=== PATIENT | female | born 1945 | race Caucasian/White ===

== ENCOUNTER 2018-09-05 08:59 | Observation (INO) | payer MEDICARE, MEDICAID ==
[2018-09-05 09:49] LABS: #Basophils 0.1 thou/uL (0.0-0.2); #Eosinphils 0.9 thou/uL (0.0-0.7); #Lymphocytes 2.8 thou/uL (1.20-3.40); #Neutrophils 9.1 thou/uL (1.40-6.50); %Basophils 0.7 % (0.0-1.0); %Eosinophils 6.7 % (0.0-10.0); %Lymphocytes 19.9 % (21.0-51.0); %Monocytes 7.3 % (0.0-10.0); %Neutrophils 65.3 % (42.0-75.0); Hemoglobin 10.9 g/dL (12.0-16.0); Mean Corpuscular HGB CONC 29.4 g/dL (32.0-36.0); Mean Corpuscular Hemoglobin 26.2 pg (27.0-31.0); Mean Corpuscular Volume 89.1 fL (78.0-98.0); Mean Platelet Volume 8.8 fL (7.4-10.4); Platelet Count 309 thou/uL (130-400); RBC Distribution Width 14.4 % (11.5-14.5); Red Blood Cell (RBC) Count 4.15 mill/uL (4.20-5.40); White Blood Cell (WBC) Count 13.9 thou/uL (4.8-10.8)
[2018-09-05 10:05] LABS: CKMB 4.5 ng/mL (0-6.6)
[2018-09-05 10:11] LABS: ALT (SGPT) 41 U/L (8-55); AST (SGOT) 39 U/L (5-34); Albumin 3.6 g/dL (3.4-4.8); Alkaline Phosphatase 109 U/L (40-150); Anion Gap 17 mmol/L (10-20); BUN (Urea Nitrogen) 28 mg/dL (9.8-20.1); Bilirubin, Total Less than 0.2 mg/dL (0.2-1.2); Calc. Creatinine Clearance 0 mL/min (70-130); Carbon Dioxide 18 mmol/L (23-31); Chloride 107 mmol/L (98-107); Estimated GFR-MDRD 88; Globulin 3.2 g/dL (2.4-3.5); Glucose 157 mg/dL (83-110); Protein, Total 6.8 g/dL (6.0-8.3); Sodium 137 mmol/L (136-145); Troponin I 0.012 ng/mL (< 0.028)
[2018-09-05 10:19] LABS: MDiff Complete? YES; Polychromasia SLIGHT = 2-3 cells (100X) (0-2/hpf)
[2018-09-05] MEDS ORDERED: methylPREDNISolone Sod Succ/PF 125 MG/2 ML VIAL ONE (10:48)
--- NOTE | 2018-09-05 11:03 | RAD ---
CHEST ONE VIEW PORTABLE: HISTORY: A 72-year-old female with a history of chest pain and dyspnea with chest tightness and shortness of b reath. COMPARISON: 10/05/2017 FINDINGS: There is rotation to the right. Monitor leads overly the chest. There are some mild increased linea r and interstitial markings in the left chest and some blunting of the left costophrenic angle. Thes e interstitial markings do appear to be somewhat more prominent than on the prior study of 07/05/2016 . Some of this apparent increased density may be related to the rotation. There is bone demineraliz ation. Heart size is within normal limits. IMPRESSION: 1. Markedly rotated chest to the right. 2. Stable pleural opacity changes in the left base with some increased markings in the left chest, w hich may just be related to the rotation. 3. No confluent pneumonia. 4. Atherosclerosis of the aorta with ectasia. 5. Heterogeneous bony demineralization. POS: [facility]
[2018-09-05] MEDS ORDERED: Acetaminophen 500 MG TAB ONE (12:56)
[2018-09-05 14:23] LABS: Troponin I 0.014 ng/mL (< 0.028)
[2018-09-05 16:27] LABS: Bilirubin Negative (Negative); Blood, Urine Trace (Negative); Clarity CLOUDY (Clear); Glucose, Urine (Dipstick) Negative (Negative); Leukocyte Large (Negative); Nitrite Positive (Negative); Protein, Urine (Dipstick) Negative (Neg-Trace); Specific Gravity, Urine 1.017 (1.002-1.036); Urobilinogen 0.2 mg/dL (0.2-1.0)
[2018-09-05 16:29] LABS: Bacteria/HPF 2+ HPF (None Seen); Hyaline Casts/LPF 7-10 HYALINE CAST LPF (0-3 Hyaline); Pathc Cast-AUWi Flag 0.72 (0-2.49); RBC/HPF 0-3 HPF (0-3); Squamous Epithelial None Seen HPF (0-3); Yeast-AUWi Flag 24.2 (0-25.0)
[2018-09-05 17:41] LABS: Troponin I Less than 0.010 ng/mL (< 0.028)
[2018-09-05] MEDS ORDERED: Ondansetron ODT 4 MG TAB SL PRN (17:47)
[2018-09-05] MEDS ORDERED: Acetaminophen 325 MG TAB PO PRN (17:47)
[2018-09-05] MEDS ORDERED: Ondansetron PF 4 MG/2 ML Vial IVP PRN ×2 (17:47→18:20)
[2018-09-05] MEDS ORDERED: Ibuprofen 200 MG TAB PO PRN (18:20)
[2018-09-05] MEDS ORDERED: Dextrose 50% Abboject 50 ML SYRINGE SLOW IVP PRN (18:20)
[2018-09-05] MEDS ORDERED: hydrALAZINE 20 MG/ML VIAL SLOW IVP PRN (18:20)
[2018-09-05] MEDS ORDERED: Acetaminophen 500 MG TAB PO PRN (18:20)
[2018-09-05] MEDS ORDERED: Ondansetron ODT 4 MG TAB PO PRN (18:20)
[2018-09-05] MEDS ORDERED: Dextrose 5% in Water 1,000 ML IV PRN (18:20)
[2018-09-05] MEDS ORDERED: HumaLOG 300 UNITS/3 ML VIAL SC PRN ×2 (18:20)
[2018-09-05] MEDS ORDERED: cefTRIAXone\\ROCEPHIN 2 GM in Sodium Chloride 0.9% 100 ML IVPB SCH (18:30)
[2018-09-05] MEDS ORDERED: Famotidine 20 MG TAB PO SCH (21:00)
--- NOTE | 2018-09-05 21:25 | HP ---
DATE OF ADMISSION: 09/05/2018 PRIMARY CARE PROVIDER: Dr. Reshma Valles. CHIEF COMPLAINT: Chest and abdominal pain. HISTORY OF PRESENT ILLNESS: This is a 72-year-old female who presents to [facility] Emergency Department in transfer from [facility] in [place], [place] where patient is a [facility] resident. The patient states she noticed upper abdomen and lower chest discomfort including press ure and some pain that began spontaneously. The patient states she waited for the pain to resolve; h owever, it continued notifying the nursing personnel at [facility]. The patient denied any ass ociated nausea, vomiting, diaphoresis, left arm or jaw discomfort. The patient denies any specific b ack discomfort, fever, chills, increased cough, congestion, or change to her bowel habits. Patient d enies any specific dysuria; however, states she has a chronic indwelling bladder catheter. The [facility] nt states she is nonambulatory at baseline status post bilateral lower extremity amputations secondar y to Staph infections. The patient has been a resident at [facility] in [place] for approxima tely a year and a half. The patient does admit to a remote history of coronary artery disease, takin g chronic aspirin and nitrate therapy. The patient states she has been compliant with her chronic me dication regimen; however, states she takes 18-19 pills a day and is not clear of her entire regimen. In the emergency room, patient did receive aspirin as well as sublingual nitroglycerin spray with s ome improvement in symptoms. The patient denies any recent trauma, injury or fall. The patient also received IV Solu-Medrol, bronchodilator therapy including DuoNebs, and Tylenol. PAST MEDICAL HISTORY: 1. Nonambulatory status, status post bilateral lower extremity amputation. 2. Parkinson's disease. 3. Coronary artery disease, medically managed. 4. Diabetes mellitus type 2. 5. Hypertension. 6. Multiple sclerosis. 7. History of asthma. 8. Hypothyroidism. PAST SURGICAL HISTORY: 1. Status post cholecystectomy. 2. Status post appendectomy. 3. Status post bilateral above the knee amputations after Staphylococcal infection. 4. Status post left hand surgery. 5. Status post right ear surgery. CURRENT MEDICATIONS: 1. Ambien 5 mg p.o. at bedtime. 2. Amlodipine 5 mg one tablet p.o. daily. 3. Aspirin 81 mg 1 tab p.o. daily. 4. Lipitor 40 mg p.o. at bedtime. 5. Baclofen 10 mg p.o. b.i.d. 6. Colace 100 mg p.o. daily. 7. Copaxone 20 mg subcutaneously daily. 8. Flovent HFA 1 inhalation daily. 9. Isosorbide mononitrate 60 mg p.o. daily. 10. Lisinopril 40 mg p.o. daily. 11. Metformin 500 mg p.o. b.i.d. 12. Metoprolol tartrate 100 mg p.o. daily. 13. Naproxen 250 mg p.o. b.i.d. 14. Patanol 0.1% ophthalmic drops. 15. Primidone 50 mg p.o. b.i.d. 16. Trimethoprim 100 mg p.o. daily. 17. Requip 2 mg p.o. t.i.d. 18. Nexium 40 mg p.o. daily. 19. Clonidine 0.1 mg p.o. b.i.d. 20. Elemental iron 65 mg p.o. daily. 21. Lasix 20 mg 1 tab p.o. daily. 22. Melatonin 3 mg p.o. at bedtime. ALLERGIES: FLAGYL, MORPHINE SULFATE, SULFA. FAMILY HISTORY: Positive for diabetes mellitus. Positive for coronary artery disease. SOCIAL HISTORY: Patient resides at [facility] over the last year and a half. Origina marge from [place]. Remote history of tobacco use, quitting approximately 40 years prior to this evaluation. No alcohol or illicit drug use. Nonambulatory status. REVIEW OF SYSTEMS: The following complete review of systems was negative, unless otherwise mentioned in the HPI or below: Constitutional: Weight loss or gain, ability to conduct usual activities. Skin: Rash, itching. Eyes: Double vision, pain. ENT/Mouth: Nose bleeding, neck stiffness, pain, tenderness. Cardiovascular: Palpitations, dyspnea on exertion, orthopnea. Respiratory: Shortness of breath, wheezing, cough, hemoptysis, fever or night sweats. Gastrointestinal: Poor appetite, abdominal pain, heartburn, nausea, vomiting, constipation, or diarr hea. Genitourinary: Urgency, frequency, dysuria, nocturia. Musculoskeletal: Pain, swelling. Neurologic/Psychiatric: Anxiety, depression. Allergy/Immunologic: Skin rash, bleeding tendency. Otherwise negative except as stated per HPI. PHYSICAL EXAMINATION: VITAL SIGNS: On admission, blood pressure 123/58, pulse 85, respiratory rate 20, temperature 97.8 de grees Fahrenheit, O2 saturation 94% on room air. GENERAL APPEARANCE: This is a 72-year-old female, alert, responsive, in no acute distress. HEENT: Pupils are equal, round, and reactive to light and accommodation. Extraocular muscles are in tact. No scleral icterus, no conjunctival injection. Nares patent. OP is clear. Teeth in fair rep air. NECK: Supple, no cervical adenopathy, no thyromegaly, no carotid bruits, no JVD noted. CHEST: Lungs are clear to auscultation bilaterally. CARDIOVASCULAR: S1 and S2, without noted murmur, rub or gallop. Mild tenderness to palpation in the lower sternum and midepigastric region. ABDOMEN: Rounded, soft with mild tenderness to palpation in the midepigastric region. No palpable m ass noted. Bowel sounds in all 4 quadrants. EXTREMITIES: Warm and dry with fair turgor. Bilateral lower extremity above the knee amputations no teo with stump intact. GENITOURINARY: Indwelling bladder catheter with leg bag in place. NEUROLOGIC: Cranial nerves II-XII are grossly intact. No focal or lateralizing signs appreciated. PERTINENT LABORATORY DATA AND X-RAY FINDINGS: Sodium 137, potassium 5.0, chloride 107, CO2 of 18, BU N 28, creatinine 0.66. Estimated GFR of 88, glucose 157, calcium 9.0, total bilirubin 0.2, AST 39, A LT 41, alkaline phosphatase 109. Troponin I negative x3. BNP 36. Albumin 3.6. CBC showed a white blood cell count 13.9, hemoglobin 11, hematocrit 37, platelet count 309 with normal differential. Ur inalysis positive for nitrites and leukocyte esterase with greater than 50 to too numerous to count W BCs per high powered field. Portable chest x-ray dated 09/05/2018 showed no acute cardiopulmonary pr ocess. Marked rotation of the chest to the right. EKG dated 09/05/2018 by my interpretation shows s inus mechanism with heart rates in the 90s. Attenuated R waves noted in the precordial leads. Kim l axis. No acute ST-T wave changes appreciated. ASSESSMENT AND PLAN: 1. Chest pain. The patient will be observed on the telemetry unit. Appears noncardiac in nature gi jason physical findings on exam. Serial troponin I x3 negative. We will continue to monitor clinicall y. Suspect abdominal source. 2. Epigastric abdominal pain, etiology unclear. We will check lipase level. Serial abdominal exams . Supportive management. 3. Hypertension. Resume home antihypertensive regimen and monitor clinical response. 4. Chronic normocytic anemia, stable. Review of electronic medical record shows stable hemoglobin v alues dating back to 2015. 5. Diabetes mellitus type 2. Resume home diabetic regimen. Insulin sliding scale for reflexive cov erage. ADA diet. Serial Accu-Cheks before meals and at bedtime. 6. Urinary tract infection. Suspect given chronic indwelling bladder catheterization. Urine cultur e pending. Continue Rocephin 2 g IV q.24 hours. 7. Prophylaxis. Pepcid 20 mg p.o. b.i.d. 8. Wound Care consult. 9. Code status is DO NOT RESUSCITATE confirmed with the patient. Surrogate medical decision maker i s the patient's daughter.
[2018-09-06 04:18] LABS: ALT (SGPT) 47 U/L (8-55); AST (SGOT) 40 U/L (5-34); Albumin 3.3 g/dL (3.4-4.8); Alkaline Phosphatase 100 U/L (40-150); Anion Gap 13 mmol/L (10-20); BUN (Urea Nitrogen) 28 mg/dL (9.8-20.1); Bilirubin, Total Less than 0.2 mg/dL (0.2-1.2); Calc. Creatinine Clearance 75 mL/min (70-130); Calcium 8.6 mg/dL (7.8-10.44); Carbon Dioxide 22 mmol/L (23-31); Cardiac Risk 3.4 (Less than 4.5); Chloride 107 mmol/L (98-107); Cholesterol 142 mg/dl (< 200 Desired); Estimated GFR-MDRD 85; Globulin 3.1 g/dL (2.4-3.5); Glucose 226 mg/dL (83-110); HDL Cholesterol 42 mg/dL (>60 Neg Risk); LDL Cholesterol, Calculated 79 mg/dL; Lipase 20 U/L (8-78); Potassium 4.1 mmol/L (3.5-5.1); Protein, Total 6.4 g/dL (6.0-8.3); Sodium 138 mmol/L (136-145); Triglycerides 105 mg/dL (Less than 150)
[2018-09-06 05:07] LABS: Band 6 % (5-11); Eosinophils 6 % (0-10); Hemoglobin 9.8 g/dL (12.0-16.0); Lymphocytes 15 % (21-51); MDiff Complete? YES; Mean Corpuscular HGB CONC 30.6 g/dL (32.0-36.0); Mean Corpuscular Hemoglobin 26.7 pg (27.0-31.0); Mean Corpuscular Volume 87.2 fL (78.0-98.0); Mean Platelet Volume 9.1 fL (7.4-10.4); Monocytes 8 % (0-10); Neutrophil 65 % (42-75); Platelet Count 287 thou/uL (130-400); RBC Distribution Width 14.3 % (11.5-14.5); Red Blood Cell (RBC) Count 3.68 mill/uL (4.20-5.40); White Blood Cell (WBC) Count 12.1 thou/uL (4.8-10.8)
[2018-09-06] MEDS ORDERED: Aspirin 81 mg Enteric Coated Tablet PO SCH (09:00)
[2018-09-06] MEDS ORDERED: Amlodipine 10 MG TAB PO SCH (11:00)
[2018-09-06] MEDS ORDERED: cloNIDine 0.1 MG TAB PO SCH ×2 (11:15→21:00)
[2018-09-06] MEDS ORDERED: Furosemide 20 MG TAB PO SCH (11:15)
[2018-09-06] MEDS ORDERED: Lisinopril 20 MG TAB PO SCH (11:15)
[2018-09-06 12:29] VITALS: BMI 44.0
--- NOTE | 2018-09-06 15:04 | DIS ---
DATE OF ADMISSION: 09/05/2018 DATE OF DISCHARGE: 09/06/2018 DISCHARGE DIAGNOSES: 1. Urinary tract infection with Escherichia coli. 2. Abdominal pain likely secondary to #1, resolving. 3. Hypertension, stable. 4. Chronic normocytic anemia, stable. 5. Diabetes mellitus type 2, stable. 6. Chronic nonambulatory status. 7. Polypharmacy. CONSULTATIONS: None. PERTINENT LABORATORY DATA AND X-RAY FINDINGS: Basic metabolic profile within normal limits. Troponi n I negative x4. Total cholesterol 142, triglycerides 105, HDL 42, LDL 79. Lipase 20. CBC showed a white blood cell count ranged between 12.1-13.9, hemoglobin ranged between 9.8-10.9. Urine culture dated 09/05/2018 showed 50,000-75,000 colonies of E. coli species. Portable chest x-ray dated 2017 showed technically limited portable chest x-ray. Chronic atelectasis noted. No acute infiltrat e identified. HOSPITAL COURSE: The patient was initially placed in observation status after presenting with chest/ abdominal pain. The patient initially underwent serial cardiac enzymes, which were negative x4. Tel emetry monitoring showed no evidence of acute arrhythmia or dysrhythmia, and patient remained clinica lly stable. Screening metabolic survey was essentially unremarkable except for evidence of urinary t ract infection with urine culture showing presumptive E. coli species in the context of chronic indwe lling Gonsalez catheter. The patient received IV Rocephin 2 grams x1 dose with plans to transition to L evaquin 500 mg daily for 7 days after discharge. The patient did tolerate regular oral intake, voide d appropriately and remained clinically stable throughout the hospital course. I have examined the p atient at the time of discharge and discussed followup instructions. The patient overall clinically stable and ready for discharge on 09/06/2018. DISCHARGE MEDICATIONS: 1. Albuterol sulfate 1 inhalation q.4 hours p.r.n. 2. Norvasc 10 mg p.o. daily. 3. Lipitor 40 mg p.o. daily. 4. Baclofen 10 mg p.o. t.i.d. 5. Citalopram 20 mg p.o. daily. 6. Catapres 0.1 mg p.o. b.i.d. 7. Colace 100 mg p.o. b.i.d. 8. Flovent HFA 1 puff inhaled daily. 9. Lasix 20 mg p.o. daily. 10. Copaxone 20 mg subcutaneously daily. 11. Ipratropium HFA 1 puff inhaled b.i.d. 12. Isosorbide mononitrate 60 mg p.o. daily. 13. Levothyroxine 50 mcg p.o. daily. 14. Lisinopril 40 mg p.o. daily. 15. Metformin 500 mg p.o. b.i.d. 16. Metoprolol tartrate 100 mg p.o. b.i.d. 17. Naproxen 250 mg p.o. b.i.d. 18. Primidone 50 mg 2 tabs p.o. daily. 19. Ropinirole 1 tablet p.o. t.i.d. 20. Trimethoprim 100 mg p.o. daily. 21. Levaquin 500 mg p.o. daily x7 days. FOLLOWUP: The patient will follow up with Dr. Valles and Faye Larsen, nurse practitioner at [facility]. CONDITION ON DISCHARGE: Fair. ACTIVITY: ad lev. DIET: ADA and heart healthy. CODE STATUS: Do not resuscitate. DISPOSITION: Discharge home to [facility], 09/06/2018.
[2018-09-06 15:52] VITALS: BP 149/71; TEMP 98.6
[2018-09-07] MEDS ORDERED: Lisinopril 20 MG TAB PO SCH (09:00)
[2018-09-07] MEDS ORDERED: Furosemide 20 MG TAB PO SCH (09:00)
[2018-09-07] MEDS ORDERED: Amlodipine 10 MG TAB PO SCH (09:00)
--- NOTE | 2018-09-08 12:17 | EKG ---
Test Reason : Blood Pressure : / mmHG Vent. Rate : 090 BPM Atrial Rate : 090 BPM P-R Int : 206 ms QRS Dur : 086 ms QT Int : 376 ms P-R-T Axes : 068 069 101 degrees QTc Int : 459 ms Normal sinus rhythm Low voltage QRS Abnormal ECG Confirmed by MAIA CRAWFORD ([id number]), scientific publications editor KRISHNA VICTORIA ([id number]) on 09/08/2018 12:17:26 PM Referred By: Confirmed By:MAIA CRAWFORD
== END 2018-09-06 19:01 | disposition home or self-care (01) ==
LOC: ERS 08:59 → ERHOLD 13:38 → 2SE 17:45
PROVIDERS: ADMIT Family Medicine; ATTEND Family Medicine
DX: R07.89 Other chest pain (principal); R10.10 Upper abdominal pain, unspecified; N39.0 Urinary tract infection, site not specified; B96.20 Unspecified Escherichia coli [E. coli] as the cause of diseases classified elsewhere; D64.9 Anemia, unspecified; I10 Essential (primary) hypertension; E03.9 Hypothyroidism, unspecified; I25.10 Atherosclerotic heart disease of native coronary artery without angina pectoris; G20 Parkinson's disease; Z79.82 Long term (current) use of aspirin; Z79.899 Other long term (current) drug therapy; Z88.5 Allergy status to narcotic agent; Z88.2 Allergy status to sulfonamides; Z87.891 Personal history of nicotine dependence
CPT/HCPCS: 71045; 80053 ×2; 80061; 82553; 82962 ×2; 83690; 83880; 84484 ×2; 85007; 85025; 85027; 87077; 87086; 87186; 93005 ×2; 94640; 94760; 96365; 96375; 97139; 99285; G0378; 36415; 36416; 81003; 81015; 93010; 96374; J0360; J0696; J2930; J7050; J7620

== ENCOUNTER 2019-02-25 04:40 | Inpatient (IN) | payer MEDICARE, MEDICAID ==
[2019-02-25 05:11] LABS: #Basophils 0.2 thou/uL (0.0-0.2); #Eosinphils 1.9 thou/uL (0.0-0.7); #Lymphocytes 5.6 thou/uL (1.20-3.40); #Monocytes 1.2 thou/uL (0.11-0.59); #Neutrophils 9.3 thou/uL (1.40-6.50); %Basophils 0.9 % (0.0-1.0); %Eosinophils 10.4 % (0.0-10.0); %Lymphocytes 30.9 % (21.0-51.0); %Monocytes 6.4 % (0.0-10.0); %Neutrophils 51.3 % (42.0-75.0); Hemoglobin 12.2 g/dL (12.0-16.0); Mean Corpuscular HGB CONC 31.2 g/dL (32.0-36.0); Mean Corpuscular Hemoglobin 27.4 pg (27.0-31.0); Mean Corpuscular Volume 87.8 fL (78.0-98.0); Mean Platelet Volume 9.2 fL (7.4-10.4); Platelet Count 354 thou/uL (130-400); RBC Distribution Width 12.6 % (11.5-14.5); Red Blood Cell (RBC) Count 4.45 mill/uL (4.20-5.40)
[2019-02-25] MEDS ORDERED: Magnesium 2 GM/50 ML BAG (IN WATER) ONE (05:16)
[2019-02-25] MEDS ORDERED: methylPREDNISolone Sod Succ/PF 125 MG/2 ML VIAL ONE (05:16)
[2019-02-25 05:25] LABS: ALT (SGPT) 29 U/L (8-55); AST (SGOT) 34 U/L (5-34); Albumin 3.4 g/dL (3.4-4.8); Alkaline Phosphatase 122 U/L (40-150); Anion Gap 15 mmol/L (10-20); BUN (Urea Nitrogen) 18 mg/dL (9.8-20.1); Bilirubin, Total Less than 0.2 mg/dL (0.2-1.2); Calc. Creatinine Clearance 0 mL/min (70-130); Calcium 8.7 mg/dL (7.8-10.44); Carbon Dioxide 25 mmol/L (23-31); Chloride 101 mmol/L (98-107); Estimated GFR-MDRD Greater than 90; Globulin 3.5 g/dL (2.4-3.5); Glucose 168 mg/dL (83-110); Magnesium 1.6 mg/dL (1.6-2.6); Potassium 4.3 mmol/L (3.5-5.1); Protein, Total 6.9 g/dL (6.0-8.3); Sodium 137 mmol/L (136-145)
[2019-02-25] MEDS ORDERED: Furosemide 40 MG/4 ML VIAL ONE (06:51)
--- NOTE | 2019-02-25 07:42 | RAD ---
EXAM: Single view of the chest HISTORY: Chest tightness and dyspnea COMPARISON: 09/05/2018 FINDINGS: Single view of the chest shows a normal sized cardiomediastinal silhouette. Atherosclerotic calcifications are seen in the aorta. There is no evidence of consolidation, mass, or pleural effusion. The bones are unremarkable. IMPRESSION: No evidence of acute cardiopulmonary disease
[2019-02-25] MEDS ORDERED: Lorazepam 2 MG/ML VIAL ONE (07:56)
[2019-02-25 08:35] LABS: Bilirubin Negative (Negative); Blood, Urine Negative (Negative); Clarity CLEAR (Clear); Glucose, Urine (Dipstick) Negative (Negative); Leukocyte Small (Negative); Nitrite Negative (Negative); Protein, Urine (Dipstick) Negative (Neg-Trace); Specific Gravity, Urine 1.014 (1.002-1.036); Urobilinogen 0.2 mg/dL (0.2-1.0)
[2019-02-25 08:36] LABS: RBC/HPF None Seen HPF (0-3)
[2019-02-25 08:42] LABS: Pathc Cast-AUWi Flag 2.72 (0-2.49)
[2019-02-25 08:44] LABS: Lactic Acid 2.4 mmol/L (0.5-2.2)
[2019-02-25 08:49] LABS: Bacteria/HPF 2+ HPF (None Seen); Hyaline Casts/LPF 0-3 HYALINE CAST LPF (0-3 Hyaline); Manual Microscopic Reviewed? No Path Casts Seen; Renal Epithelial 0-3 HPF (0-3); Transitional Epithelial 0-3 HPF (0-3)
[2019-02-25] MEDS ORDERED: Ondansetron PF 4 MG/2 ML Vial IVP PRN (10:28)
[2019-02-25] MEDS ORDERED: Calcium Carbonate 500 MG ChewTAB PO PRN (10:28)
[2019-02-25] MEDS ORDERED: Famotidine/PF 20 mg/2ml Vial SLOW IVP SCH (10:28)
[2019-02-25] MEDS ORDERED: Ondansetron ODT 4 MG TAB PO PRN (10:28)
[2019-02-25] MEDS ORDERED: hydrALAZINE 20 MG/ML VIAL SLOW IVP PRN (10:28)
[2019-02-25] MEDS ORDERED: Loratadine 10 MG TAB PO PRN (10:28)
[2019-02-25] MEDS ORDERED: Dextrose 5% in Water 1,000 ML IV PRN (10:28)
[2019-02-25] MEDS ORDERED: Sodium Chloride 0.65% Nasal 44 ML BOT EA NARE PRN (10:28)
[2019-02-25] MEDS ORDERED: Artificial Tears 18 DROP/0.9 ML EA EYE PRN (10:28)
[2019-02-25] MEDS ORDERED: Bisacodyl 10 MG SUPP PR PRN (10:28)
[2019-02-25] MEDS ORDERED: Loperamide HCl 2 MG CAP PO PRN (10:28)
[2019-02-25] MEDS ORDERED: Dextrose 50% Abboject 50 ML SYRINGE SLOW IVP PRN (10:28)
[2019-02-25] MEDS ORDERED: Enoxaparin Sodium 40 MG/0.4 ML SYRINGE SC SCH ×2 (10:28→12:00)
[2019-02-25] MEDS ORDERED: HumaLOG 300 UNITS/3 ML VIAL SC PRN (10:28)
[2019-02-25] MEDS ORDERED: Senokot S 8.6-50 MG TAB PO PRN (10:28)
[2019-02-25] MEDS ORDERED: Famotidine 20 MG TAB PO SCH ×2 (10:28→11:00)
[2019-02-25] MEDS ORDERED: Bisacodyl 5 MG TAB PO PRN (10:28)
[2019-02-25] MEDS ORDERED: Cepastat Lozenges 1 LOZ PO PRN (10:28)
[2019-02-25] MEDS ORDERED: Diabetic Tussin 200 MG/10 ML UDCUP PO PRN (10:28)
[2019-02-25] MEDS ORDERED: Eucerin (Mineral Oil/Petrolatum,White) 30 gm Jar TOP PRN (10:28)
[2019-02-25] MEDS ORDERED: Saccharomyces boulardii 250 MG CAP PO SCH ×2 (10:28→11:00)
[2019-02-25] MEDS: guaiFENesin ER 600 MG TAB PO SCH ×2 (11:26→17:19)
[2019-02-25] MEDS: Cefepime 2 GM in Sodium Chloride 0.9% 100 ML IVPB SCH (11:27)
[2019-02-25] MEDS: methylPREDNISolone Sod Succ 40 MG VIAL IVP SCH ×2 (11:28→17:19)
[2019-02-25] MEDS: HumaLOG 300 UNITS/3 ML VIAL SC PRN ×2 (13:16→17:22)
[2019-02-25] MEDS: Furosemide 20 MG/2 ML VIAL SLOW IVP SCH (13:18)
--- NOTE | 2019-02-25 13:34 | CON ---
DATE OF CONSULTATION: 02/25/2019 CONSULTING PHYSICIAN: Sonali Wu MD REASON FOR CONSULTATION: Acute hypoxic respiratory failure. HISTORY OF PRESENT ILLNESS: Ms. Hester is a 73-year-old female, who resides at the [facility] in [place]. She came to the hospital today because of chest pressure, which apparently has been present for years. It is not clear to me why this became such an issue today that she wanted to have it investigated. She was briefly on BiPAP in the ER. She did not come up to the [facility] on BiPAP. She currently is in no overt respiratory distress. PAST MEDICAL HISTORY: 1. Chronic persistent asthma. 2. Peripheral vascular disease requiring bilateral [id number] amputations. 3. Parkinson disease. 4. Multiple sclerosis. 5. Coronary artery disease. 6. Diabetes mellitus type 2. 7. Hypertension. 8. Hypothyroidism. PAST SURGICAL HISTORY: 1. Cholecystectomy. 2. Appendectomy. 3. Bilateral AKAs. 4. Left hand surgery. 5. Right ear surgery. ALLERGIES: FLAGYL, MORPHINE, AND SULFA DRUGS. FAMILY MEDICAL HISTORY: Remarkable for diabetes and coronary artery disease. SOCIAL HISTORY: She quit smoking about 40 years ago. Does not drink. Does not use illicit drugs. REVIEW OF SYSTEMS: She has chest pressure, which is almost constant. She has occasional shortness of breath. Occasional cough. She says she "drinks Robitussin for the cough." Remainder review of systems are negative. MEDICATIONS: Prior to admission; 1. Ropinirole. 2. Glucophage. 3. Catapres. 4. Mysoline. 5. Metoprolol. 6. Lisinopril. 7. Synthroid. 8. Atrovent. 9. Furosemide. 10. Colace. 11. Citalopram. 12. Lipitor. 13. Norvasc. 14. Albuterol. PHYSICAL EXAMINATION: VITAL SIGNS: Temperature 98, pulse 118, respirations 24, and O2 saturations 98% on 2 L. GENERAL: She is awake and alert, and in no overt distress. HEENT: Pupils are reactive. Sclerae anicteric. Oropharynx clear. NECK: Without adenopathy or JVD. LUNGS: Occasional expiratory wheezing. No accessory muscle use. CARDIAC: S1 and S2. Slightly tachycardic without murmur. ABDOMEN: Soft and nontender. EXTREMITIES: Bilateral hbwvu-anx-tirk amputations are noted. LABORATORY DATA: White blood cell count 18, hematocrit 39.1, and platelet count 354. Sodium 137, potassium 4.3, chloride 101, CO2 of 25, BUN 18, creatinine 0.6, glucose 168, and lactate 2.4. BNP 215. Chest x-ray shows fairly clear lung du bilaterally without evidence of pneumonia. ASSESSMENT: 1. Dyspnea and chest pressure. Etiology not clear. Could be having mild asthma exacerbation. Congestive heart failure is also a possibility. 2. Other chronic medical problems listed above. RECOMMENDATION: 1. Antibiotics and breathing treatments for the symptoms of bronchospasm and cough. Additionally, she is receiving steroids. 2. Does not appear to need BiPAP at this time. 3. Treat congestive heart failure as you are. 4. The patient does not need IMCU care and can be transferred to the floor. Job ID: [id number]
--- NOTE | 2019-02-25 13:37 | HP ---
PRIMARY CARE PHYSICIAN: Reshma Valles DO REASON FOR ADMISSION: Acute respiratory failure with hypoxia, COPD exacerbation with bronchitis, possible CHF. HISTORY OF PRESENT ILLNESS: A 73-year-old female, who lives at [facility], where she was complaining of shortness of breath. She was experiencing chest congestion. She was also having cough productive of scant amount of sputum without any blood. She did not have any classic PND, but she was experiencing orthopnea. Her physical capacity was also reduced. She was feeling shortness of breath with little effort. All the symptoms started on Monday and Monday; and today, the patient's condition was deteriorated and that is why she was sent to emergency room. Paramedics gave her 2 DuoNeb therapies with only little improvement, and subsequently, she received 2 another DuoNeb therapies in our emergency room, which made some improvement. The patient was hypoxic, tachycardic, and she was in respiratory distress. Initially, ER physician started BiPAP trial, and with that, the patient was feeling much better. Subsequently, this patient was admitted to [facility] for close monitoring. In the emergency room, the patient was hemodynamically stable, afebrile. After admission to IMCU, BiPAP was discontinued, and the patient was tolerating without BiPAP well. She was able to talk in full sentence. She denies any UTI symptoms. She denies any constipation, diarrhea, melena, or hematochezia. She denies any lower extremity edema. REVIEW OF SYSTEMS: CONSTITUTIONAL: Negative for weight loss or gain, ability to conduct usual activities. SKIN: Negative for rash, itching. EYES: Negative for double vision, pain. ENT/MOUTH: Negative for nose bleeding, neck stiffness, pain, tenderness. CARDIOVASCULAR: Negative for palpitations, dyspnea on exertion, orthopnea. RESPIRATORY: Negative for shortness of breath, wheezing, cough, hemoptysis, fever or night sweats. GASTROINTESTINAL: Negative for poor appetite, abdominal pain, heartburn, nausea, vomiting, constipation, or diarrhea. GENITOURINARY: Negative for urgency, frequency, dysuria, nocturia. MUSCULOSKELETAL: Negative for pain, swelling. NEUROLOGIC/PSYCHIATRIC: Negative for anxiety, depression. ALLERGY/IMMUNOLOGIC: Negative for skin rash, bleeding tendency. Please see my HPI for pertinent positive and negative. All other review of systems reviewed and negative, except as mentioned in HPI. PAST MEDICAL HISTORY: Diabetes type 2, hypertension, history of multiple sclerosis, history of asthma/COPD, hypothyroidism, Parkinson disease, coronary artery disease, chronic physical deconditioning. PAST SURGICAL HISTORY: Cholecystectomy, appendicectomy, bilateral above-knee amputation, left hand surgery, right ear surgery. PAST PSYCHIATRIC HISTORY: Anxiety, depression, and insomnia. SOCIAL HISTORY: The patient lives at [facility]. No history of tobacco, alcohol, or illicit drug abuse. FAMILY HISTORY: Positive for diabetes and coronary artery disease among several family members. ALLERGIES: FLAGYL, MORPHINE SULFATE, AND SULFA DRUGS. CURRENT HOME MEDICATIONS: As per previous discharge paper, the patient is on, 1. Albuterol inhaler q.4 hourly. 2. Amlodipine 10 mg daily. 3. Lipitor tab 40 mg p.o. daily. 4. Baclofen 10 mg t.i.d. 5. Celexa 20 mg daily. 6. Clonidine 0.1 mg b.i.d. 7. Colace 100 mg b.i.d. 8. Flonase nasal spray daily. 9. Lasix 20 mg daily. 10. subcu daily. 11. Imdur 60 mg daily. 12. Atrovent HFA inhalation b.i.d. 13. Synthroid 50 mcg p.o. daily. 14. Lisinopril 40 mg daily. 15. Metformin 500 mg p.o. b.i.d. 16. Metoprolol 100 mg p.o. b.i.d. 17. Mysoline 100 mg daily. 18. Ropinirole 1 tablet p.o. t.i.d. EMERGENCY ROOM COURSE: The patient has received DuoNeb therapy x2. The patient also received DuoNeb therapy by Paramedics, Solu-Medrol 125 mg, magnesium sulfate 2 g, Levaquin 750 mg, and Lasix 40 mg was given. PHYSICAL EXAMINATION: VITAL SIGNS: On arrival, blood pressure 128/75, pulse 120, respiratory rate 23, temperature 97.8, saturation 96% on BiPAP. Weight 61.7 kg. GENERAL: The patient is currently alert, awake, initially in mild respiratory distress and now currently much better. HEENT: Head; normocephalic, atraumatic. Eyes; pupils round, reactive to light. Extraocular muscles intact. ENT; oropharynx within normal limits. Moist mucous membranes. No oral lesion. No pharyngeal erythema. No exudate. NECK: Supple. No JVD. No thyromegaly. No carotid bruit. LUNGS: Bilateral end-expiratory wheezing. Scattered rales noted. CARDIAC: S1, S2 regular. Tachycardia. No murmur. No gallop. No rub. ABDOMEN: Soft. Bowel sounds present. BACK: No CVA tenderness. EXTREMITIES: Upper extremities, passive movement of all joints are normal. Lower extremity, bilateral AKA. NEUROLOGIC: Grossly nonfocal examination. SKIN: No skin rash. SIGNIFICANT LABORATORY DATA: EKG showing sinus tachycardia, occasional PVC, nonspecific ST-T changes. Chest x-ray based on my review, no acute cardiopulmonary process. CBC; WBC 18.0, hemoglobin 12.2, platelets 354. BMP; sodium 137, potassium 4.3, chloride 101, carbon dioxide 25, BUN 18, creatinine 0.59, glucose 168, calcium 8.7. LFT; AST 34, ALT 29, alkaline phosphatase 122, albumin 3.4. Troponin negative. BNP 215.8. Lactic acid 2.5. Urinalysis, leukocyte esterase small. Influenza A and B negative. ASSESSMENT: Impression: 1. Acute respiratory failure with hypoxia, required BiPAP, likely due to underlying chronic obstructive pulmonary disease with bronchitis. 2. Acute on chronic obstructive pulmonary disease exacerbation with bronchitis. 3. Sepsis with lactic acidosis. 4. Component of acute diastolic heart failure. 5. Bilateral [id number] amputation status. 6. Hypertension. 7. Dyslipidemia. 8. Anxiety and depression. 9. History of multiple sclerosis. 10. Hypothyroidism. 11. Diabetes type 2. 12. Parkinson disease. 13. Obesity with body mass index of 34. PLAN: Admission to [facility]. Wean off BiPAP as tolerated. Pulmonary consultation. Empiric antibiotic therapy with cefepime 2 g IV 12 hourly, Levaquin 500 mg IV daily, Mucinex 600 mg q.6 hourly, Solu-Medrol 40 mg IV q.6 hourly. After verification of her home medication, we will resume selected home medication. Deep venous thrombosis prophylaxis with Lovenox 40 mg subcu daily. GI prophylaxis with Pepcid 20 mg p.o. or IV b.i.d. Echocardiography will be obtained to assess EF and other structural abnormality. We will repeat labs tomorrow. We will follow up on culture result. We are expecting the patient's stay in hospital more than 2 midnights. Plan of care discussed with the patient. We will also start diabetes, hyperglycemia protocol treatment. Job ID: [id number]
[2019-02-25] MEDS: Acetaminophen 325 MG TAB PO PRN (18:02)
[2019-02-25] MEDS: Baclofen 10 MG TAB PO SCH (20:25)
[2019-02-25] MEDS: Famotidine 20 MG TAB PO SCH (20:26)
[2019-02-25] MEDS: Famotidine/PF 20 mg/2ml Vial SLOW IVP SCH (20:31)
[2019-02-26] MEDS: Cefepime 2 GM in Sodium Chloride 0.9% 100 ML IVPB SCH ×3 (00:42→23:33)
[2019-02-26] MEDS: methylPREDNISolone Sod Succ 40 MG VIAL IVP SCH ×4 (00:43→21:39)
[2019-02-26] MEDS: guaiFENesin ER 600 MG TAB PO SCH ×4 (00:43→20:29)
[2019-02-26 05:42] LABS: #Lymphocytes 1.3 thou/uL (1.20-3.40); #Monocytes 0.4 thou/uL (0.11-0.59); #Neutrophils 10.8 thou/uL (1.40-6.50); %Basophils 0.3 % (0.0-1.0); %Eosinophils 0.3 % (0.0-10.0); %Lymphocytes 10.5 % (21.0-51.0); %Monocytes 3.3 % (0.0-10.0); %Neutrophils 85.6 % (42.0-75.0); Hemoglobin 11.5 g/dL (12.0-16.0); Mean Corpuscular HGB CONC 32.2 g/dL (32.0-36.0); Mean Corpuscular Hemoglobin 28.2 pg (27.0-31.0); Mean Corpuscular Volume 87.6 fL (78.0-98.0); Platelet Count 297 thou/uL (130-400); RBC Distribution Width 12.7 % (11.5-14.5); Red Blood Cell (RBC) Count 4.05 mill/uL (4.20-5.40); White Blood Cell (WBC) Count 12.6 thou/uL (4.8-10.8)
[2019-02-26] MEDS: Acetaminophen 325 MG TAB PO PRN ×3 (05:46→20:34)
[2019-02-26] MEDS: Furosemide 20 MG/2 ML VIAL SLOW IVP SCH (05:46)
[2019-02-26 06:06] LABS: ALT (SGPT) 22 U/L (8-55); AST (SGOT) 26 U/L (5-34); Albumin 3.4 g/dL (3.4-4.8); Alkaline Phosphatase 96 U/L (40-150); Anion Gap 14 mmol/L (10-20); BUN (Urea Nitrogen) 17 mg/dL (9.8-20.1); Bilirubin, Total Less than 0.2 mg/dL (0.2-1.2); Calc. Creatinine Clearance 74 mL/min (70-130); Calcium 8.4 mg/dL (7.8-10.44); Carbon Dioxide 28 mmol/L (23-31); Chloride 97 mmol/L (98-107); Estimated GFR-MDRD Greater than 90; Globulin 3.3 g/dL (2.4-3.5); Glucose 172 mg/dL (83-110); Potassium 4.1 mmol/L (3.5-5.1); Protein, Total 6.7 g/dL (6.0-8.3); Sodium 135 mmol/L (136-145)
[2019-02-26] MEDS: HumaLOG 300 UNITS/3 ML VIAL SC PRN ×2 (06:24→11:38)
[2019-02-26] MEDS ORDERED: Albuterol Sulfate 2.5 mg/3 ml Neb NEB PRN ×2 (07:58→08:06)
[2019-02-26] MEDS ORDERED: Non-Formulary Item 1 EACH (Zolpidem Tartrate [Ambien] 10 MG) PO PRN (07:58)
[2019-02-26] MEDS: Famotidine/PF 20 mg/2ml Vial SLOW IVP SCH ×2 (08:27→20:30)
[2019-02-26] MEDS ORDERED: GLATIRAMER ACETATE 20 MG SQ SCH (09:00)
[2019-02-26] MEDS ORDERED: Atorvastatin Calcium 40 MG TAB PO SCH (09:00)
[2019-02-26] MEDS ORDERED: metFORMIN 500 MG TAB PO SCH (09:00)
[2019-02-26] MEDS ORDERED: Non-Formulary Item 1 EACH (Olopatadine Hcl [Pataday] 1 DROP) EA EYE SCH (09:00)
[2019-02-26] MEDS ORDERED: Fluticasone Propionate HFA 110 MCG AER INH SCH ×2 (09:00)
[2019-02-26] MEDS ORDERED: Glatiramer Acetate [Copaxone] 20 MG SC SCH (09:00)
[2019-02-26] MEDS ORDERED: Levothyroxine Sodium 50 MCG TAB PO SCH (09:00)
[2019-02-26] MEDS ORDERED: Non-Formulary Item 1 EACH (Ferrous Sulfate [Iron] 325 MG) PO SCH (09:00)
[2019-02-26] MEDS ORDERED: Citalopram 20 MG TAB PO SCH (09:00)
[2019-02-26] MEDS ORDERED: METOPROLOL TARTRATE PO SCH (09:00)
[2019-02-26] MEDS ORDERED: Docusate 100 MG CAP PO SCH (09:00)
[2019-02-26] MEDS ORDERED: Amlodipine 10 MG TAB PO SCH (09:00)
[2019-02-26] MEDS ORDERED: rOPINIRole HCl 2 MG TAB PO SCH (09:00)
[2019-02-26] MEDS ORDERED: Fluticasone Propionate Nasal Spray 16 gm Bottle NASAL SCH (09:00)
[2019-02-26] MEDS ORDERED: Azelastine 137 MCG/Spray 30 ML NS SCH (09:00)
[2019-02-26] MEDS ORDERED: Non-Formulary Item 1 EACH (Lisinopril [Lisinopril] 1 TAB) PO SCH (09:00)
--- NOTE | 2019-02-26 09:17 | PRG ---
DATE OF SERVICE: 02/26/2019 SUBJECTIVE: The patient is feeling better, had no acute complaints. OBJECTIVE: VITAL SIGNS: Temperature is 97.8, pulse 109, blood pressure 134/113, O2 saturation 96% on 2 L. HEENT: Unremarkable. NECK: No JVD. LUNGS: Clear to auscultation anteriorly. CARDIAC: S1, S2 regular without murmur. ABDOMEN: Soft. EXTREMITIES: No edema. LABORATORY DATA: White blood cell count 12.6, hematocrit 35, and platelet count 297. Sodium 135, potassium 4.1, chloride 97, CO2 of 28, BUN 17, creatinine 0.6, glucose 172. IMAGING STUDIES: An echocardiogram demonstrated normal EF. ASSESSMENT: Asthma with exacerbation. PLAN: Would rapidly taper her steroids, change her antibiotics to p.o., and put her on the track to discharge in the next 24 hours. Job ID: [id number]
[2019-02-26] MEDS: Atorvastatin Calcium 40 MG TAB PO SCH (09:31)
[2019-02-26] MEDS: Amlodipine 10 MG TAB PO SCH (09:31)
[2019-02-26] MEDS: Aspirin 81 mg Enteric Coated Tablet PO SCH (09:31)
[2019-02-26] MEDS: Furosemide 20 MG TAB PO SCH ×2 (09:32→14:51)
[2019-02-26] MEDS: Famotidine 20 MG TAB PO SCH ×2 (09:32→20:29)
[2019-02-26] MEDS: Ferrous Sulfate 325 MG TAB PO SCH ×2 (09:32→20:29)
[2019-02-26] MEDS: Enoxaparin Sodium 40 MG/0.4 ML SYRINGE SC SCH (09:32)
[2019-02-26] MEDS: Citalopram 20 MG TAB PO SCH (09:32)
[2019-02-26] MEDS: Docusate 100 MG CAP PO SCH ×2 (09:32→20:29)
[2019-02-26] MEDS: Levothyroxine Sodium 50 MCG TAB PO SCH (09:33)
[2019-02-26] MEDS: Lisinopril 20 MG TAB PO SCH (09:33)
[2019-02-26] MEDS: Montelukast Sodium 10 mg Tablet PO SCH (09:34)
[2019-02-26] MEDS: Metoprolol Tartrate 100 MG TAB PO SCH ×2 (09:34→20:29)
[2019-02-26] MEDS: metFORMIN 500 MG TAB PO SCH ×2 (09:34→20:29)
[2019-02-26] MEDS: Primidone 50 MG TAB PO SCH ×3 (09:34→20:29)
[2019-02-26] MEDS: Saccharomyces boulardii 250 MG CAP PO SCH (09:34)
[2019-02-26] MEDS: rOPINIRole HCl 2 MG TAB PO SCH ×3 (09:35→20:29)
[2019-02-26] MEDS: Baclofen 10 MG TAB PO SCH ×2 (10:01→20:29)
--- NOTE | 2019-02-26 10:42 | PDOC.PN ---
- Subjective Encounter Start Date: 02/26/19 Encounter Start Time: 10:00 -: old records requested/rev Patient seen and examined. No new complaints. No overnight events - Objective Resuscitation Status - Order Detail: 02/25/19 13:24 Resuscitation Status Routine Resuscitation Status: DNAR: NO Resuscitation Discussed with: discussed with daughter MEHDI Reviewed: Yes Vital Signs & Weight: Vital Signs (12 hours) Temp Pulse Resp Pulse Ox 02/26/19 09:59 102 H 18 98 02/26/19 09:31 95 02/26/19 07:53 99 02/26/19 07:11 97.8 F 02/26/19 07:06 95 25 H 99 02/26/19 04:00 97.7 F 02/26/19 01:52 104 H 26 H 97 Weight Weight 131 lb 2 oz Most Recent Monitor Data Heart Rate from ECG 109 NIBP 134/113 NIBP BP-Mean 120 Respiration from ECG 15 SpO2 96 I&O: 02/25/19 02/26/19 02/27/19 06:59 06:59 06:59 Intake Total 480 Output Total 350 Balance 130 Result Diagrams: 02/26/19 05:24 02/26/19 05:24 Additional Labs: Accuchecks 02/26/19 02/26/19 02/25/19 10:23 06:12 20:07 POC Glucose 294 H 188 H 141 H 02/25/19 02/25/19 17:10 11:44 POC Glucose 229 H 279 H Radiology Reviewed by me: Yes EKG Reviewed by me: Yes Phys Exam - Physical Examination Constitutional: NAD HEENT: PERRLA, moist MMs, sclera anicteric Neck: no JVD, supple Respiratory: no wheezing, no rales, no rhonchi Cardiovascular: RRR, no significant murmur, no rub Gastrointestinal: soft, non-tender, no distention, positive bowel sounds bilateral AKA Lymphatic: no nodes Psychiatric: normal affect Skin: no rash, normal turgor Dx/Plan (1) Acute on chronic diastolic ACC/AHA stage C congestive heart failure Code(s): I50.33 - ACUTE ON CHRONIC DIASTOLIC (CONGESTIVE) HEART FAILURE Status : Acute (2) Acute respiratory failure with hypoxemia Code(s): J96.01 - ACUTE RESPIRATORY FAILURE WITH HYPOXIA Status: Acute (3) COPD with acute bronchitis Code(s): J44.0 - CHRONIC OBSTRUCTIVE PULMON DISEASE W ACUTE LOWER RESP INFCT; J20.9 - ACUTE BRONCHITIS, UNSPECIFIED Status: Acute (4) Lactic acidosis Code(s): E87.2 - ACIDOSIS Status: Acute (5) Sepsis with acute organ dysfunction Code(s): A41.9 - SEPSIS, UNSPECIFIED ORGANISM; R65.20 - SEVERE SEPSIS WITHOUT SEPTIC SHOCK Status: Acute (6) Anxiety and depression Code(s): F41.9 - ANXIETY DISORDER, UNSPECIFIED; F32.9 - MAJOR DEPRESSIVE DISORDER, SINGLE EPISODE, UNSPECIFIED Status: Chronic (7) Diabetes type 2, controlled Code(s): E11.9 - TYPE 2 DIABETES MELLITUS WITHOUT COMPLICATIONS Status: Chronic (8) Hypertension Code(s): I10 - ESSENTIAL (PRIMARY) HYPERTENSION Status: Chronic (9) Hypothyroidism Code(s): E03.9 - HYPOTHYROIDISM, UNSPECIFIED Status: Chronic (10) Multiple sclerosis Code(s): G35 - MULTIPLE SCLEROSIS Status: Chronic (11) Obesity (BMI 30.0-34.9) Code(s): E66.9 - OBESITY, UNSPECIFIED Status: Chronic (12) Parkinson disease Code(s): G20 - PARKINSON'S DISEASE Status: Chronic (13) S/P AKA (above knee amputation) bilateral Code(s): Z89.611 - ACQUIRED ABSENCE OF RIGHT LEG ABOVE KNEE; Z89.612 - ACQUIRED ABSENCE OF LEFT LEG ABOVE KNEE Status: Chronic - Plan cont current plan of care, continue antibiotics, respiratory therapy * reduce solumderol * continue IV antibiotics * medication reviewed as below * symptomatic treatment * transfer to medical. Review of Systems - Review of Systems ENT: negative: Ear Pain, Ear Discharge, Nose Pain, Nose Discharge, Nose Congestion, Mouth Pain, Mouth Swelling, Throat Pain, Throat Swelling, Other Respiratory: negative: Cough, Dry, Shortness of Breath, Hemoptysis, SOB with Excertion, Pleuritic Pain, Sputum, Wheezing Cardiovascular: negative: chest pain, palpitations, orthopnea, paroxysmal nocturnal dyspnea, edema, light headedness, other Gastrointestinal: negative: Nausea, Vomiting, Abdominal Pain, Diarrhea, Constipation, Melena, Hematochezia, Other Genitourinary: negative: Dysuria, Frequency, Incontinence, Hematuria, Retention , Other Musculoskeletal: negative: Neck Pain, Shoulder Pain, Arm Pain, Back Pain, Hand Pain, Leg Pain, Foot Pain, Other - Medications/Allergies Allergies/Adverse Reactions: Allergies Allergy/AdvReac Type Severity Reaction Status Date / Time metronidazole [From Flagyl] Allergy Verified 09/05/18 19:19 morphine Allergy Verified 09/05/18 19:19 Sulfa (Sulfonamide Allergy Verified 09/05/18 19:19 Antibiotics) Medications: Current Medications Acetaminophen (Tylenol) 650 mg PO Q4H PRN PRN Reason: Headache/Fever/Mild Pain (1-3) Last Admin: 02/26/19 05:46 Dose: 650 mg Albuterol Sulfate (Ventolin) 2.5 mg NEB Q4H PRN PRN Reason: Dyspnea/Wheezing/SOB Albuterol/Ipratropium (Duoneb) 3 ml NEB [id number] [facility] Last Admin: 02/26/19 09:59 Dose: 3 ml Albuterol/Ipratropium (Duoneb) 3 ml NEB [id number] PRN PRN Reason: SOB &/or Wheezing Amlodipine Besylate (Norvasc) 10 mg PO DAILY [facility] Last Admin: 02/26/19 09:31 Dose: 10 mg Artificial Tears (Tears Naturale) 2 drop EA EYE PRN PRN PRN Reason: Dry Eyes Aspirin (Ecotrin) 81 mg PO DAILY [facility] Last Admin: 02/26/19 09:31 Dose: 81 mg Atorvastatin Calcium (Lipitor) 40 mg PO DAILY [facility] Last Admin: 02/26/19 09:31 Dose: 40 mg Azelastine HCl (Azelastine) 0 ml NS DAILY [facility] Baclofen (Lioresal) 10 mg PO BID [facility] Last Admin: 02/26/19 10:01 Dose: 10 mg Bisacodyl (Dulcolax) 10 mg OR DAILYPRN PRN PRN Reason: Constipation Bisacodyl (Dulcolax) 10 mg PO DAILYPRN PRN PRN Reason: Constipation Calcium Carbonate (Tums) 1,000 mg PO Q4H PRN PRN Reason: Heartburn or Indigestion Citalopram Hydrobromide (Celexa) 20 mg PO DAILY [facility] Last Admin: 02/26/19 09:32 Dose: 20 mg Dextrose/Water (Dextrose 50%) 25 gm SLOW IVP PRN PRN PRN Reason: Hypoglycemia Docusate Sodium (Colace) 100 mg PO BID [facility] Last Admin: 02/26/19 09:32 Dose: 100 mg Enoxaparin Sodium (Lovenox) 40 mg SC 0900 [facility] Last Admin: 02/26/19 09:32 Dose: 40 mg Famotidine (Pepcid) 20 mg PO BID [facility] Last Admin: 02/26/19 09:32 Dose: 20 mg Famotidine (Pepcid) 20 mg SLOW IVP Q12HR [facility] Last Admin: 02/26/19 08:27 Dose: Not Given Ferrous Sulfate (Feosol) 325 mg PO BID [facility] Last Admin: 02/26/19 09:32 Dose: 325 mg Fluticasone Propionate (Flonase Nasal [place]) 0 gm NASAL DAILY [facility] Furosemide (Lasix) 20 mg PO 0900,1400 [facility] Last Admin: 02/26/19 09:32 Dose: 20 mg Glucagon (Glucagon) 1 mg IM PRN PRN PRN Reason: Hypoglycemia Guaifenesin (Robitussin Sf) 200 mg PO Q4H PRN PRN Reason: Cough Guaifenesin (Mucinex) 600 mg PO BID [facility] Last Admin: 02/26/19 09:33 Dose: 600 mg Hydralazine HCl (Apresoline) 10 mg SLOW IVP Q4H PRN PRN Reason: SBP > 180 and HR < 70 Cefepime HCl 2 gm/ Sodium (Chloride) 100 mls @ 200 mls/hr IVPB Q12H [facility] Last Admin: 02/26/19 00:42 Dose: 100 mls Dextrose/Water (D5w) 1,000 mls @ 0 mls/hr IV .Q0M PRN PRN Reason: Hypoglycemia Levofloxacin 500 mg/ Device 100 mls @ 100 mls/hr IVPB Q24HR [facility] Last Admin: 02/26/19 09:29 Dose: 100 mls Insulin Human Lispro (Humalog) 0 units SC .MODERATE SLIDING SC PRN PRN Reason: Moderate Correctional Scale Last Admin: 02/26/19 06:24 Dose: 2 unit Insulin Human Lispro (Humalog) 0 units SC .BEDTIME SLIDING SC PRN PRN Reason: Bedtime Correctional Scale Isosorbide Mononitrate (Imdur) 60 mg PO DAILY [facility] Last Admin: 02/26/19 09:33 Dose: 60 mg Ketotifen Fumarate (Zaditor 0.025% Ophth Soln) 1 drop EA EYE BID [facility] Levothyroxine Sodium (Synthroid) 50 mcg PO DAILY [facility] Last Admin: 02/26/19 09:33 Dose: 50 mcg Lisinopril (Zestril) 40 mg PO DAILY [facility] Last Admin: 02/26/19 09:33 Dose: 40 mg Loperamide HCl (Imodium) 2 mg PO PRN PRN PRN Reason: Diarrhea/Loose Stools Loratadine (Claritin) 10 mg PO DAILYPRN PRN PRN Reason: Sinus Symptoms Metformin HCl (Glucophage) 500 mg PO BID [facility] Last Admin: 02/26/19 09:34 Dose: 500 mg Methylprednisolone Sodium Succinate (Solu-Medrol) 20 mg IVP Q8HR [facility] Metoprolol Tartrate (Lopressor) 100 mg PO BID [facility] Last Admin: 02/26/19 09:34 Dose: 100 mg Mineral Oil/White Petrolatum (Eucerin Cream) 0 gm TOP BIDPRN PRN PRN Reason: Dry Skin Mometasone Furoate (Asmanex Hfa 100 Mcg) 1 puff INH BID-RT [facility] Montelukast Sodium (Singulair) 10 mg PO DAILY [facility] Last Admin: 02/26/19 09:34 Dose: 10 mg Ondansetron HCl (Zofran Odt) 4 mg PO Q6H PRN PRN Reason: Nausea/Vomiting Ondansetron HCl (Zofran) 4 mg IVP Q6H PRN PRN Reason: Nausea/Vomiting Glatiramer Acetate [ (Copaxone] 20 Mg) 0 each SC DAILY [facility] Primidone (Mysoline) 100 mg PO TID [facility] Last Admin: 02/26/19 09:34 Dose: 100 mg Ropinirole HCl (Requip) 2 mg PO TID [facility] Last Admin: 02/26/19 09:35 Dose: 2 mg Saccharomyces Boulardii (Florastor) 250 mg PO DAILY [facility] Last Admin: 02/26/19 09:34 Dose: 250 mg Senna/Docusate Sodium (Senokot S) 2 tab PO BID PRN PRN Reason: Constipation Sodium Chloride ([place] Nasal [place] 0.65%) 0 ml EA NARE QIDPRN PRN PRN Reason: Nasal Congestion Sodium Chloride (Flush - Normal Saline) 10 ml IVF Q12HR [facility] Last Admin: 02/26/19 09:35 Dose: 10 ml Sodium Chloride (Flush - Normal Saline) 10 ml IVF PRN PRN PRN Reason: Saline Flush Last Admin: 02/25/19 11:36 Dose: 10 ml Throat Lozenges (Cepastat Lozenges) 1 adrián PO Q2H PRN PRN Reason: Sore Throat Zolpidem Tartrate (Ambien) 10 mg PO HSPRN PRN PRN Reason: SLEEP
[2019-02-26] MEDS: Azelastine 137 MCG/Spray 30 ML NS SCH (11:36)
[2019-02-26] MEDS: Fluticasone Propionate Nasal Spray 16 gm Bottle NASAL SCH (11:36)
[2019-02-26] MEDS: Ketotifen Fumarate 0.025% Ophth Soln 5 ml Bottle EA EYE SCH ×2 (11:37→20:30)
[2019-02-26 13:14] VITALS: BMI 20.5
[2019-02-26] MEDS: Mometasone 100 MCG HFA INHALER INH SCH (18:59)
[2019-02-27] MEDS: methylPREDNISolone Sod Succ 40 MG VIAL IVP SCH (05:54)
[2019-02-27] MEDS: Mometasone 100 MCG HFA INHALER INH SCH ×2 (07:34→18:59)
[2019-02-27] MEDS: Baclofen 10 MG TAB PO SCH ×2 (08:26→21:01)
[2019-02-27] MEDS: Montelukast Sodium 10 mg Tablet PO SCH (08:26)
[2019-02-27] MEDS: Ferrous Sulfate 325 MG TAB PO SCH ×2 (08:26→21:01)
[2019-02-27] MEDS: Furosemide 20 MG TAB PO SCH ×2 (08:26→14:07)
[2019-02-27] MEDS: Famotidine/PF 20 mg/2ml Vial SLOW IVP SCH ×2 (08:26→21:02)
[2019-02-27] MEDS: metFORMIN 500 MG TAB PO SCH ×2 (08:26→21:00)
[2019-02-27] MEDS: Amlodipine 10 MG TAB PO SCH (08:26)
[2019-02-27] MEDS: guaiFENesin ER 600 MG TAB PO SCH ×2 (08:26→21:00)
[2019-02-27] MEDS: Levothyroxine Sodium 50 MCG TAB PO SCH (08:27)
[2019-02-27] MEDS: Atorvastatin Calcium 40 MG TAB PO SCH (08:27)
[2019-02-27] MEDS: Aspirin 81 mg Enteric Coated Tablet PO SCH (08:27)
[2019-02-27] MEDS: Docusate 100 MG CAP PO SCH ×2 (08:27→21:01)
[2019-02-27] MEDS: Lisinopril 20 MG TAB PO SCH (08:27)
[2019-02-27] MEDS: Citalopram 20 MG TAB PO SCH (08:27)
[2019-02-27] MEDS: Saccharomyces boulardii 250 MG CAP PO SCH (08:27)
[2019-02-27] MEDS: Famotidine 20 MG TAB PO SCH ×2 (08:27→21:01)
[2019-02-27] MEDS: Azelastine 137 MCG/Spray 30 ML NS SCH (08:34)
[2019-02-27] MEDS: Fluticasone Propionate Nasal Spray 16 gm Bottle NASAL SCH (08:34)
[2019-02-27] MEDS: Ketotifen Fumarate 0.025% Ophth Soln 5 ml Bottle EA EYE SCH ×2 (08:34→21:02)
[2019-02-27] MEDS: Enoxaparin Sodium 40 MG/0.4 ML SYRINGE SC SCH (08:35)
[2019-02-27] MEDS: Primidone 50 MG TAB PO SCH ×3 (08:37→21:01)
[2019-02-27] MEDS: rOPINIRole HCl 2 MG TAB PO SCH ×3 (08:37→21:02)
[2019-02-27] MEDS: Metoprolol Tartrate 100 MG TAB PO SCH ×2 (08:37→21:01)
--- NOTE | 2019-02-27 10:05 | PRG ---
DATE OF SERVICE: 02/27/2019 SUBJECTIVE: The patient is sitting in bed, watching TV, looks comfortable. OBJECTIVE: VITAL SIGNS: Temperature 98.4, pulse 97, respirations 20, O2 saturations 96% on room air, and blood pressure 155/69. HEENT: Unremarkable. NECK: No JVD. CHEST: Coarse breath sounds. CARDIAC: S1, S2. Regular. ABDOMEN: Soft. EXTREMITIES: Bilateral [id number] amputations. ASSESSMENT: Asthma with exacerbation. PLAN: She looks ready to transition over to oral antibiotics. I would rapidly taper her steroids. No further recommendations at this time. Job ID: [id number]
--- NOTE | 2019-02-27 11:42 | PDOC.PN ---
- Subjective Encounter Start Date: 02/27/19 Encounter Start Time: 08:15 Patient seen and examined. No new complaints. No overnight events - Objective Resuscitation Status - Order Detail: 02/25/19 13:24 Resuscitation Status Routine Resuscitation Status: DNAR: NO Resuscitation Discussed with: discussed with daughter MEHDI Reviewed: Yes Vital Signs & Weight: Vital Signs (12 hours) Temp Pulse Resp BP Pulse Ox 02/27/19 10:22 97 16 92 L 02/27/19 08:26 98 02/27/19 08:00 98.4 F 97 20 155/69 H 92 L 02/27/19 07:31 98 16 96 02/27/19 04:00 98.6 F 87 18 165/89 H 93 L 02/27/19 02:31 95 12 02/27/19 00:00 98.4 F 90 18 159/78 H 95 Weight Admit Weight 131 lb 2 oz Weight 131 lb 2 oz Most Recent Monitor Data Heart Rate from ECG 90 NIBP 160/96 NIBP BP-Mean 117 Respiration from ECG 24 SpO2 99 I&O: 02/26/19 02/27/19 02/28/19 06:59 06:59 06:59 Intake Total 480 700 240 Output Total 350 300 Balance 130 400 240 Result Diagrams: 02/26/19 05:24 02/26/19 05:24 Additional Labs: Accuchecks 02/27/19 02/27/19 02/26/19 11:25 04:25 20:24 POC Glucose 147 H 130 H 190 H 02/26/19 17:33 POC Glucose 136 H Phys Exam - Physical Examination Constitutional: NAD HEENT: PERRLA, moist MMs, sclera anicteric Neck: no JVD, supple Respiratory: no wheezing, no rales, no rhonchi Cardiovascular: RRR, no significant murmur, no rub Gastrointestinal: soft, non-tender, no distention, positive bowel sounds Lymphatic: no nodes Psychiatric: normal affect Skin: no rash, normal turgor Dx/Plan (1) Acute on chronic diastolic ACC/AHA stage C congestive heart failure Code(s): I50.33 - ACUTE ON CHRONIC DIASTOLIC (CONGESTIVE) HEART FAILURE Status : Acute (2) Acute respiratory failure with hypoxemia Code(s): J96.01 - ACUTE RESPIRATORY FAILURE WITH HYPOXIA Status: Acute (3) COPD with acute bronchitis Code(s): J44.0 - CHRONIC OBSTRUCTIVE PULMON DISEASE W ACUTE LOWER RESP INFCT; J20.9 - ACUTE BRONCHITIS, UNSPECIFIED Status: Acute (4) Lactic acidosis Code(s): E87.2 - ACIDOSIS Status: Acute (5) Sepsis with acute organ dysfunction Code(s): A41.9 - SEPSIS, UNSPECIFIED ORGANISM; R65.20 - SEVERE SEPSIS WITHOUT SEPTIC SHOCK Status: Acute (6) Anxiety and depression Code(s): F41.9 - ANXIETY DISORDER, UNSPECIFIED; F32.9 - MAJOR DEPRESSIVE DISORDER, SINGLE EPISODE, UNSPECIFIED Status: Chronic (7) Diabetes type 2, controlled Code(s): E11.9 - TYPE 2 DIABETES MELLITUS WITHOUT COMPLICATIONS Status: Chronic (8) Hypertension Code(s): I10 - ESSENTIAL (PRIMARY) HYPERTENSION Status: Chronic (9) Hypothyroidism Code(s): E03.9 - HYPOTHYROIDISM, UNSPECIFIED Status: Chronic (10) Multiple sclerosis Code(s): G35 - MULTIPLE SCLEROSIS Status: Chronic (11) Obesity (BMI 30.0-34.9) Code(s): E66.9 - OBESITY, UNSPECIFIED Status: Chronic (12) Parkinson disease Code(s): G20 - PARKINSON'S DISEASE Status: Chronic (13) S/P AKA (above knee amputation) bilateral Code(s): Z89.611 - ACQUIRED ABSENCE OF RIGHT LEG ABOVE KNEE; Z89.612 - ACQUIRED ABSENCE OF LEFT LEG ABOVE KNEE Status: Chronic - Plan cont current plan of care, continue antibiotics, respiratory therapy * change to po prednisone * will change to po antibiotics tomorrow * medication reviewed as below * symptomatic treatment * expecting discharge tomorrow. Review of Systems - Review of Systems ENT: negative: Ear Pain, Ear Discharge, Nose Pain, Nose Discharge, Nose Congestion, Mouth Pain, Mouth Swelling, Throat Pain, Throat Swelling, Other Respiratory: negative: Cough, Dry, Shortness of Breath, Hemoptysis, SOB with Excertion, Pleuritic Pain, Sputum, Wheezing Cardiovascular: negative: chest pain, palpitations, orthopnea, paroxysmal nocturnal dyspnea, edema, light headedness, other Gastrointestinal: negative: Nausea, Vomiting, Abdominal Pain, Diarrhea, Constipation, Melena, Hematochezia, Other Genitourinary: negative: Dysuria, Frequency, Incontinence, Hematuria, Retention , Other - Medications/Allergies Allergies/Adverse Reactions: Allergies Allergy/AdvReac Type Severity Reaction Status Date / Time metronidazole [From Flagyl] Allergy Verified 09/05/18 19:19 morphine Allergy Verified 09/05/18 19:19 Sulfa (Sulfonamide Allergy Verified 09/05/18 19:19 Antibiotics) Medications: Current Medications Acetaminophen (Tylenol) 650 mg PO Q4H PRN PRN Reason: Headache/Fever/Mild Pain (1-3) Last Admin: 02/26/19 20:34 Dose: 650 mg Albuterol Sulfate (Ventolin) 2.5 mg NEB Q4H PRN PRN Reason: Dyspnea/Wheezing/SOB Albuterol/Ipratropium (Duoneb) 3 ml NEB [id number] Last Admin: 02/27/19 10:22 Dose: 3 ml Albuterol/Ipratropium (Duoneb) 3 ml NEB [id number] PRN PRN Reason: SOB &/or Wheezing Amlodipine Besylate (Norvasc) 10 mg PO DAILY [facility] Last Admin: 02/27/19 08:26 Dose: 10 mg Artificial Tears (Tears Naturale) 2 drop EA EYE PRN PRN PRN Reason: Dry Eyes Aspirin (Ecotrin) 81 mg PO DAILY [facility] Last Admin: 02/27/19 08:27 Dose: 81 mg Atorvastatin Calcium (Lipitor) 40 mg PO DAILY [facility] Last Admin: 02/27/19 08:27 Dose: 40 mg Azelastine HCl (Azelastine) 0 ml NS DAILY [facility] Last Admin: 02/27/19 08:34 Dose: 2 sprays Baclofen (Lioresal) 10 mg PO BID [facility] Last Admin: 02/27/19 08:26 Dose: 10 mg Bisacodyl (Dulcolax) 10 mg CA DAILYPRN PRN PRN Reason: Constipation Bisacodyl (Dulcolax) 10 mg PO DAILYPRN PRN PRN Reason: Constipation Last Admin: 02/26/19 23:33 Dose: 10 mg Calcium Carbonate (Tums) 1,000 mg PO Q4H PRN PRN Reason: Heartburn or Indigestion Citalopram Hydrobromide (Celexa) 20 mg PO DAILY [facility] Last Admin: 02/27/19 08:27 Dose: 20 mg Dextrose/Water (Dextrose 50%) 25 gm SLOW IVP PRN PRN PRN Reason: Hypoglycemia Docusate Sodium (Colace) 100 mg PO BID [facility] Last Admin: 02/27/19 08:27 Dose: 100 mg Enoxaparin Sodium (Lovenox) 40 mg SC 0900 [facility] Last Admin: 02/27/19 08:35 Dose: 40 mg Famotidine (Pepcid) 20 mg PO BID [facility] Last Admin: 02/27/19 08:27 Dose: 20 mg Famotidine (Pepcid) 20 mg SLOW IVP Q12HR [facility] Last Admin: 02/27/19 08:26 Dose: 20 mg Ferrous Sulfate (Feosol) 325 mg PO BID [facility] Last Admin: 02/27/19 08:26 Dose: 325 mg Fluticasone Propionate (Flonase Nasal [place]) 0 gm NASAL DAILY [facility] Last Admin: 02/27/19 08:34 Dose: 2 sprays Furosemide (Lasix) 20 mg PO 0900,1400 [facility] Last Admin: 02/27/19 08:26 Dose: 20 mg Glucagon (Glucagon) 1 mg IM PRN PRN PRN Reason: Hypoglycemia Guaifenesin (Robitussin Sf) 200 mg PO Q4H PRN PRN Reason: Cough Guaifenesin (Mucinex) 600 mg PO BID [facility] Last Admin: 02/27/19 08:26 Dose: 600 mg Hydralazine HCl (Apresoline) 10 mg SLOW IVP Q4H PRN PRN Reason: SBP > 180 and HR < 70 Cefepime HCl 2 gm/ Sodium (Chloride) 100 mls @ 200 mls/hr IVPB Q12H [facility] Last Admin: 02/26/19 23:33 Dose: 100 mls Dextrose/Water (D5w) 1,000 mls @ 0 mls/hr IV .Q0M PRN PRN Reason: Hypoglycemia Levofloxacin 500 mg/ Device 100 mls @ 100 mls/hr IVPB 0900 [facility] Last Admin: 02/27/19 08:28 Dose: 100 mls Insulin Human Lispro (Humalog) 0 units SC .MODERATE SLIDING SC PRN PRN Reason: Moderate Correctional Scale Last Admin: 02/26/19 11:38 Dose: 6 unit Insulin Human Lispro (Humalog) 0 units SC .BEDTIME SLIDING SC PRN PRN Reason: Bedtime Correctional Scale Isosorbide Mononitrate (Imdur) 60 mg PO DAILY [facility] Last Admin: 02/27/19 08:26 Dose: 60 mg Ketotifen Fumarate (Zaditor 0.025% Oph Soln) 1 drop EA EYE BID [facility] Last Admin: 02/27/19 08:34 Dose: Not Given Levothyroxine Sodium (Synthroid) 50 mcg PO DAILY [facility] Last Admin: 02/27/19 08:27 Dose: 50 mcg Lisinopril (Zestril) 40 mg PO DAILY [facility] Last Admin: 02/27/19 08:27 Dose: 40 mg Loperamide HCl (Imodium) 2 mg PO PRN PRN PRN Reason: Diarrhea/Loose Stools Loratadine (Claritin) 10 mg PO DAILYPRN PRN PRN Reason: Sinus Symptoms Metformin HCl (Glucophage) 500 mg PO BID [facility] Last Admin: 02/27/19 08:26 Dose: 500 mg Metoprolol Tartrate (Lopressor) 100 mg PO BID [facility] Last Admin: 02/27/19 08:37 Dose: 100 mg Mineral Oil/White Petrolatum (Eucerin Cream) 0 gm TOP BIDPRN PRN PRN Reason: Dry Skin Mometasone Furoate (Asmanex Hfa 100 Mcg) 1 puff INH BID-RT [facility] Last Admin: 02/27/19 07:34 Dose: 1 puff Montelukast Sodium (Singulair) 10 mg PO DAILY [facility] Last Admin: 02/27/19 08:26 Dose: 10 mg Ondansetron HCl (Zofran Odt) 4 mg PO Q6H PRN PRN Reason: Nausea/Vomiting Ondansetron HCl (Zofran) 4 mg IVP Q6H PRN PRN Reason: Nausea/Vomiting Glatiramer Acetate [ (Copaxone] 20 Mg) 0 each SC DAILY [facility] Prednisone (Prednisone) 20 mg PO QAM-[facility] Primidone (Mysoline) 100 mg PO TID [facility] Last Admin: 02/27/19 08:37 Dose: 100 mg Ropinirole HCl (Requip) 2 mg PO TID [facility] Last Admin: 02/27/19 08:37 Dose: 2 mg Saccharomyces Boulardii (Florastor) 250 mg PO DAILY [facility] Last Admin: 02/27/19 08:27 Dose: 250 mg Senna/Docusate Sodium (Senokot S) 2 tab PO BID PRN PRN Reason: Constipation Sodium Chloride ([place] Nasal [place] 0.65%) 0 ml EA NARE QIDPRN PRN PRN Reason: Nasal Congestion Sodium Chloride (Flush - Normal Saline) 10 ml IVF Q12HR [facility] Last Admin: 02/27/19 08:37 Dose: 10 ml Sodium Chloride (Flush - Normal Saline) 10 ml IVF PRN PRN PRN Reason: Saline Flush Last Admin: 02/25/19 11:36 Dose: 10 ml Throat Lozenges (Cepastat Lozenges) 1 adrián PO Q2H PRN PRN Reason: Sore Throat Zolpidem Tartrate (Ambien) 10 mg PO HSPRN PRN PRN Reason: SLEEP
[2019-02-27] MEDS: Cefepime 2 GM in Sodium Chloride 0.9% 100 ML IVPB SCH ×2 (12:05→23:32)
--- NOTE | 2019-02-27 12:18 | PQF ---
LORRAINE RUFF, ATTILA PITT MD [id number] -[id number] [id number] CLINICAL DOCUMENTATION IMPROVEMENT CLARIFICATION FORM: ICD-10 Updated PLEASE DO AN ADDENDUM TO THE PROGRESS NOTE WITH ANY DOCUMENTATION UPDATES OR ADDITIONS AND CARRY THROUGH TO DC SUMMARY. THANK YOU. DATE: 02/27/19 ATTN: DR MADISON Please exercise your independent, professional judgment in responding to the clarification form. Clinical indicators are provided on the bottom of this form for your review Please check appropriate box(s): [ x ] I (concur) with the Wound Care findings as stated below. [ ] Pressure Ulcer: (Stage I: Erythema; Stage II: Partial thickness; Stage III : Full thickness; Stage IV: Necrosis to muscle/bone) [ ] Location: POA: [ ] Yes [ ] No[ ] Unable to determine Stage (I to IV): (Left Right Bilateral N/A ) [ ] Gangrene present [ ] Yes [ ] ischemic gangrene [ ] gas gangrene [ ] No [ ] No pressure ulcer diagnosis [ ] Deep tissue injury [ ] Other diagnosis [ ] Unable to determine In addition, please specify: Present on Admission (POA): [x ] Yes [ ] No [ ] Unable to determine For continuity of documentation, please document condition throughout progress notes and discharge summary. Thank You. CLINICAL INDICATORS - SIGNS / SYMPTOMS / LABS 02/25 RN: Pressure ulcer assessed and documented as (Stage 2) 02/26 RN: right and left cheek--buttock(picture), left upper leg all noted Stage II RISK FACTORS: Immobility/ bedridden/ debility--> 02/25 RN: bedfast TREATMENTS: Wound care consult 02/25 orders Eucerin cream BID 02/25 orders Turn Q2h and offload bony prominences per RN protocal 02/25 to date (This form is maintained as a part of the permanent medical record) 2014 [employer]. All Rights Reserved Melisa Ibarra, RN, BSN, CCDS [email or web address]
[2019-02-27] MEDS: Zolpidem Tartrate 5 MG TAB PO PRN (21:04)
[2019-02-28] MEDS: Mometasone 100 MCG HFA INHALER INH SCH ×2 (07:07→19:18)
[2019-02-28] MEDS: Aspirin 81 mg Enteric Coated Tablet PO SCH (08:42)
[2019-02-28] MEDS: Citalopram 20 MG TAB PO SCH (08:42)
[2019-02-28] MEDS: Docusate 100 MG CAP PO SCH ×2 (08:42→21:01)
[2019-02-28] MEDS: Atorvastatin Calcium 40 MG TAB PO SCH (08:42)
[2019-02-28] MEDS: guaiFENesin ER 600 MG TAB PO SCH ×2 (08:42→21:01)
[2019-02-28] MEDS: predniSONE 20 MG TAB PO SCH (08:42)
[2019-02-28] MEDS: Saccharomyces boulardii 250 MG CAP PO SCH (08:42)
[2019-02-28] MEDS: Famotidine 20 MG TAB PO SCH ×2 (08:43→21:02)
[2019-02-28] MEDS: Baclofen 10 MG TAB PO SCH ×2 (08:43→21:01)
[2019-02-28] MEDS: Levothyroxine Sodium 50 MCG TAB PO SCH (08:43)
[2019-02-28] MEDS: Lisinopril 20 MG TAB PO SCH (08:43)
[2019-02-28] MEDS: Amlodipine 10 MG TAB PO SCH (08:43)
[2019-02-28] MEDS: Ferrous Sulfate 325 MG TAB PO SCH ×2 (08:43→21:02)
[2019-02-28] MEDS: Montelukast Sodium 10 mg Tablet PO SCH (08:43)
[2019-02-28] MEDS: metFORMIN 500 MG TAB PO SCH ×2 (08:43→21:02)
[2019-02-28] MEDS: Furosemide 20 MG TAB PO SCH ×2 (08:43→14:20)
[2019-02-28] MEDS: Metoprolol Tartrate 100 MG TAB PO SCH ×2 (08:44→21:02)
[2019-02-28] MEDS: Primidone 50 MG TAB PO SCH ×3 (08:44→21:01)
[2019-02-28] MEDS: Enoxaparin Sodium 40 MG/0.4 ML SYRINGE SC SCH (08:45)
[2019-02-28] MEDS: Fluticasone Propionate Nasal Spray 16 gm Bottle NASAL SCH (08:46)
[2019-02-28] MEDS: Azelastine 137 MCG/Spray 30 ML NS SCH (08:46)
[2019-02-28] MEDS: Ketotifen Fumarate 0.025% Ophth Soln 5 ml Bottle EA EYE SCH ×2 (08:47→21:01)
[2019-02-28 08:55] LABS: #Basophils 0.1 thou/uL (0.0-0.2); #Eosinphils 0.4 thou/uL (0.0-0.7); #Lymphocytes 3.4 thou/uL (1.20-3.40); #Monocytes 0.9 thou/uL (0.11-0.59); #Neutrophils 7.3 thou/uL (1.40-6.50); %Lymphocytes 28.3 % (21.0-51.0); %Monocytes 7.2 % (0.0-10.0); %Neutrophils 60.4 % (42.0-75.0); Mean Corpuscular HGB CONC 31.5 g/dL (32.0-36.0); Mean Corpuscular Hemoglobin 27.4 pg (27.0-31.0); Mean Platelet Volume 8.4 fL (7.4-10.4); Platelet Count 308 thou/uL (130-400); RBC Distribution Width 12.6 % (11.5-14.5); Red Blood Cell (RBC) Count 4.39 mill/uL (4.20-5.40); White Blood Cell (WBC) Count 12.1 thou/uL (4.8-10.8)
[2019-02-28] MEDS: rOPINIRole HCl 2 MG TAB PO SCH ×3 (09:00→21:01)
--- NOTE | 2019-02-28 09:05 | PRG ---
DATE OF SERVICE: 02/28/2019 SUBJECTIVE: Ms. Hester is eating breakfast. She feels okay. OBJECTIVE: VITAL SIGNS: Temperature 98.1, pulse 85, respirations 20, O2 saturation 91%, blood pressure 182/68. HEENT: Unremarkable. NECK: No JVD. LUNGS: Coarse breath sounds. CARDIAC: S1, S2. Regular. ABDOMEN: Soft. EXTREMITIES: Bilateral [id number] amputations. ASSESSMENT: Asthma with exacerbation. PLAN: She needs to be transitioned over to oral medications. She can be transitioned home. No further recommendations. We will sign off. Job ID: [id number]
[2019-02-28 09:19] LABS: Anion Gap 16 mmol/L (10-20); BUN (Urea Nitrogen) 15 mg/dL (9.8-20.1); Calc. Creatinine Clearance 74 mL/min (70-130); Carbon Dioxide 25 mmol/L (23-31); Chloride 102 mmol/L (98-107); Estimated GFR-MDRD Greater than 90; Glucose 115 mg/dL (83-110); Potassium 3.6 mmol/L (3.5-5.1); Sodium 139 mmol/L (136-145)
--- NOTE | 2019-02-28 09:42 | PDOC.PN ---
- Subjective Encounter Start Date: 02/28/19 Encounter Start Time: 08:40 Patient seen and examined. No new complaints. No overnight events - Objective Resuscitation Status - Order Detail: 02/25/19 13:24 Resuscitation Status Routine Resuscitation Status: DNAR: NO Resuscitation Discussed with: discussed with daughter MEHDI Reviewed: Yes Vital Signs & Weight: Vital Signs (12 hours) Temp Pulse Resp BP Pulse Ox 02/28/19 08:43 85 02/28/19 07:27 98.1 F 85 20 182/68 H 91 L 02/28/19 07:05 94 16 93 L 02/28/19 02:33 12 02/27/19 22:20 110 H 12 95 02/27/19 21:58 98.4 F 109 H 20 133/70 94 L Weight Admit Weight 131 lb 2 oz Weight 131 lb 2 oz Most Recent Monitor Data Heart Rate from ECG 90 NIBP 160/96 NIBP BP-Mean 117 Respiration from ECG 24 SpO2 99 I&O: 02/27/19 02/28/19 03/01/19 06:59 06:59 06:59 Intake Total 700 1060 Output Total 300 925 Balance 400 135 Result Diagrams: 02/28/19 08:44 02/28/19 08:44 Additional Labs: Accuchecks 02/28/19 02/27/19 02/27/19 05:41 19:34 16:23 POC Glucose 116 H 148 H 122 H 02/27/19 11:25 POC Glucose 147 H Phys Exam - Physical Examination Constitutional: NAD HEENT: PERRLA, moist MMs, sclera anicteric Neck: no JVD, supple Respiratory: no wheezing, no rales, no rhonchi Cardiovascular: RRR, no significant murmur, no rub Gastrointestinal: soft, non-tender, no distention Lymphatic: no nodes Psychiatric: normal affect, A&O x 3 Skin: no rash, normal turgor Dx/Plan (1) Acute on chronic diastolic ACC/AHA stage C congestive heart failure Code(s): I50.33 - ACUTE ON CHRONIC DIASTOLIC (CONGESTIVE) HEART FAILURE Status : Acute (2) Acute respiratory failure with hypoxemia Code(s): J96.01 - ACUTE RESPIRATORY FAILURE WITH HYPOXIA Status: Acute (3) COPD with acute bronchitis Code(s): J44.0 - CHRONIC OBSTRUCTIVE PULMON DISEASE W ACUTE LOWER RESP INFCT; J20.9 - ACUTE BRONCHITIS, UNSPECIFIED Status: Acute (4) Lactic acidosis Code(s): E87.2 - ACIDOSIS Status: Acute (5) Sepsis with acute organ dysfunction Code(s): A41.9 - SEPSIS, UNSPECIFIED ORGANISM; R65.20 - SEVERE SEPSIS WITHOUT SEPTIC SHOCK Status: Acute (6) Anxiety and depression Code(s): F41.9 - ANXIETY DISORDER, UNSPECIFIED; F32.9 - MAJOR DEPRESSIVE DISORDER, SINGLE EPISODE, UNSPECIFIED Status: Chronic (7) Diabetes type 2, controlled Code(s): E11.9 - TYPE 2 DIABETES MELLITUS WITHOUT COMPLICATIONS Status: Chronic (8) Hypertension Code(s): I10 - ESSENTIAL (PRIMARY) HYPERTENSION Status: Chronic (9) Hypothyroidism Code(s): E03.9 - HYPOTHYROIDISM, UNSPECIFIED Status: Chronic (10) Multiple sclerosis Code(s): G35 - MULTIPLE SCLEROSIS Status: Chronic (11) Obesity (BMI 30.0-34.9) Code(s): E66.9 - OBESITY, UNSPECIFIED Status: Chronic (12) Parkinson disease Code(s): G20 - PARKINSON'S DISEASE Status: Chronic (13) S/P AKA (above knee amputation) bilateral Code(s): Z89.611 - ACQUIRED ABSENCE OF RIGHT LEG ABOVE KNEE; Z89.612 - ACQUIRED ABSENCE OF LEFT LEG ABOVE KNEE Status: Chronic - Plan cont current plan of care, continue antibiotics, respiratory therapy * medication reviewed as below * symptomatic treatment * continue cefepime, dc levaquin * continue lasix. Review of Systems - Review of Systems ENT: negative: Ear Pain, Ear Discharge, Nose Pain, Nose Discharge, Nose Congestion, Mouth Pain, Mouth Swelling, Throat Pain, Throat Swelling, Other Respiratory: negative: Cough, Dry, Shortness of Breath, Hemoptysis, SOB with Excertion, Pleuritic Pain, Sputum, Wheezing Cardiovascular: negative: chest pain, palpitations, orthopnea, paroxysmal nocturnal dyspnea, edema, light headedness, other Gastrointestinal: negative: Nausea, Vomiting, Abdominal Pain, Diarrhea, Constipation, Melena, Hematochezia, Other Genitourinary: negative: Dysuria, Frequency, Incontinence, Hematuria, Retention , Other - Medications/Allergies Allergies/Adverse Reactions: Allergies Allergy/AdvReac Type Severity Reaction Status Date / Time metronidazole [From Flagyl] Allergy Verified 09/05/18 19:19 morphine Allergy Verified 09/05/18 19:19 Sulfa (Sulfonamide Allergy Verified 09/05/18 19:19 Antibiotics) Medications: Current Medications Acetaminophen (Tylenol) 650 mg PO Q4H PRN PRN Reason: Headache/Fever/Mild Pain (1-3) Last Admin: 02/26/19 20:34 Dose: 650 mg Albuterol Sulfate (Ventolin) 2.5 mg NEB Q4H PRN PRN Reason: Dyspnea/Wheezing/SOB Albuterol/Ipratropium (Duoneb) 3 ml NEB [id number] [facility] Last Admin: 02/28/19 07:05 Dose: 3 ml Albuterol/Ipratropium (Duoneb) 3 ml NEB [id number] PRN PRN Reason: SOB &/or Wheezing Amlodipine Besylate (Norvasc) 10 mg PO DAILY [facility] Last Admin: 02/28/19 08:43 Dose: 10 mg Artificial Tears (Tears Naturale) 2 drop EA EYE PRN PRN PRN Reason: Dry Eyes Aspirin (Ecotrin) 81 mg PO DAILY [facility] Last Admin: 02/28/19 08:42 Dose: 81 mg Atorvastatin Calcium (Lipitor) 40 mg PO DAILY [facility] Last Admin: 02/28/19 08:42 Dose: 40 mg Azelastine HCl (Azelastine) 0 ml NS DAILY [facility] Last Admin: 02/28/19 08:46 Dose: 2 sprays Baclofen (Lioresal) 10 mg PO BID [facility] Last Admin: 02/28/19 08:43 Dose: 10 mg Bisacodyl (Dulcolax) 10 mg [place] DAILYPRN PRN PRN Reason: Constipation Bisacodyl (Dulcolax) 10 mg PO DAILYPRN PRN PRN Reason: Constipation Last Admin: 02/26/19 23:33 Dose: 10 mg Calcium Carbonate (Tums) 1,000 mg PO Q4H PRN PRN Reason: Heartburn or Indigestion Citalopram Hydrobromide (Celexa) 20 mg PO DAILY [facility] Last Admin: 02/28/19 08:42 Dose: 20 mg Dextrose/Water (Dextrose 50%) 25 gm SLOW IVP PRN PRN PRN Reason: Hypoglycemia Docusate Sodium (Colace) 100 mg PO BID [facility] Last Admin: 02/28/19 08:42 Dose: 100 mg Enoxaparin Sodium (Lovenox) 40 mg SC 0900 [facility] Last Admin: 02/28/19 08:45 Dose: 40 mg Famotidine (Pepcid) 20 mg PO BID [facility] Last Admin: 02/28/19 08:43 Dose: 20 mg Ferrous Sulfate (Feosol) 325 mg PO BID [facility] Last Admin: 02/28/19 08:43 Dose: 325 mg Fluticasone Propionate (Flonase Nasal [place]) 0 gm NASAL DAILY [facility] Last Admin: 02/28/19 08:46 Dose: 1 sprays Furosemide (Lasix) 20 mg PO 0900,1400 [facility] Last Admin: 02/28/19 08:43 Dose: 20 mg Glucagon (Glucagon) 1 mg IM PRN PRN PRN Reason: Hypoglycemia Guaifenesin (Robitussin Sf) 200 mg PO Q4H PRN PRN Reason: Cough Guaifenesin (Mucinex) 600 mg PO BID [facility] Last Admin: 02/28/19 08:42 Dose: 600 mg Hydralazine HCl (Apresoline) 10 mg SLOW IVP Q4H PRN PRN Reason: SBP > 180 and HR < 70 Cefepime HCl 2 gm/ Sodium (Chloride) 100 mls @ 200 mls/hr IVPB Q12H [facility] Last Admin: 02/27/19 23:32 Dose: 100 mls Dextrose/Water (D5w) 1,000 mls @ 0 mls/hr IV .Q0M PRN PRN Reason: Hypoglycemia Insulin Human Lispro (Humalog) 0 units SC .MODERATE SLIDING SC PRN PRN Reason: Moderate Correctional Scale Last Admin: 02/26/19 11:38 Dose: 6 unit Insulin Human Lispro (Humalog) 0 units SC .BEDTIME SLIDING SC PRN PRN Reason: Bedtime Correctional Scale Isosorbide Mononitrate (Imdur) 60 mg PO DAILY [facility] Last Admin: 02/28/19 08:43 Dose: 60 mg Ketotifen Fumarate (Zaditor 0.025% Oph Soln) 1 drop EA EYE BID [facility] Last Admin: 02/28/19 08:47 Dose: 1 drop Levothyroxine Sodium (Synthroid) 50 mcg PO DAILY [facility] Last Admin: 02/28/19 08:43 Dose: 50 mcg Lisinopril (Zestril) 40 mg PO DAILY [facility] Last Admin: 02/28/19 08:43 Dose: 40 mg Loperamide HCl (Imodium) 2 mg PO PRN PRN PRN Reason: Diarrhea/Loose Stools Loratadine (Claritin) 10 mg PO DAILYPRN PRN PRN Reason: Sinus Symptoms Metformin HCl (Glucophage) 500 mg PO BID [facility] Last Admin: 02/28/19 08:43 Dose: 500 mg Metoprolol Tartrate (Lopressor) 100 mg PO BID [facility] Last Admin: 02/28/19 08:44 Dose: 100 mg Mineral Oil/White Petrolatum (Eucerin Cream) 0 gm TOP BIDPRN PRN PRN Reason: Dry Skin Mometasone Furoate (Asmanex Hfa 100 Mcg) 1 puff INH BID-RT [facility] Last Admin: 02/28/19 07:07 Dose: 1 puff Montelukast Sodium (Singulair) 10 mg PO DAILY [facility] Last Admin: 02/28/19 08:43 Dose: 10 mg Ondansetron HCl (Zofran Odt) 4 mg PO Q6H PRN PRN Reason: Nausea/Vomiting Ondansetron HCl (Zofran) 4 mg IVP Q6H PRN PRN Reason: Nausea/Vomiting Glatiramer Acetate [ (Copaxone] 20 Mg) 0 each SC DAILY [facility] Prednisone (Prednisone) 20 mg PO QA-[facility] Last Admin: 02/28/19 08:42 Dose: 20 mg Primidone (Mysoline) 100 mg PO TID [facility] Last Admin: 02/28/19 08:44 Dose: 100 mg Ropinirole HCl (Requip) 2 mg PO TID [facility] Saccharomyces Boulardii (Florastor) 250 mg PO DAILY [facility] Last Admin: 02/28/19 08:42 Dose: 250 mg Senna/Docusate Sodium (Senokot S) 2 tab PO BID PRN PRN Reason: Constipation Sodium Chloride ([place] Nasal [place] 0.65%) 0 ml EA NARE QIDPRN PRN PRN Reason: Nasal Congestion Sodium Chloride (Flush - Normal Saline) 10 ml IVF Q12HR [facility] Last Admin: 02/28/19 08:47 Dose: 10 ml Sodium Chloride (Flush - Normal Saline) 10 ml IVF PRN PRN PRN Reason: Saline Flush Last Admin: 02/25/19 11:36 Dose: 10 ml Throat Lozenges (Cepastat Lozenges) 1 adriná PO Q2H PRN PRN Reason: Sore Throat Zolpidem Tartrate (Ambien) 10 mg PO HSPRN PRN PRN Reason: SLEEP Last Admin: 02/27/19 21:04 Dose: 10 mg
[2019-02-28] MEDS: Cefepime 2 GM in Sodium Chloride 0.9% 100 ML IVPB SCH ×2 (13:04→23:47)
[2019-02-28] MEDS: HumaLOG 300 UNITS/3 ML VIAL SC PRN (17:28)
[2019-02-28] MEDS: Acetaminophen 325 MG TAB PO PRN (17:34)
[2019-02-28] MEDS: Zolpidem Tartrate 5 MG TAB PO PRN (21:05)
[2019-03-01] MEDS: Mometasone 100 MCG HFA INHALER INH SCH (06:38)
[2019-03-01] MEDS: Primidone 50 MG TAB PO SCH (09:06)
[2019-03-01] MEDS: Baclofen 10 MG TAB PO SCH (09:07)
[2019-03-01] MEDS: Saccharomyces boulardii 250 MG CAP PO SCH (09:07)
[2019-03-01] MEDS: Ferrous Sulfate 325 MG TAB PO SCH (09:07)
[2019-03-01] MEDS: Lisinopril 20 MG TAB PO SCH (09:07)
[2019-03-01] MEDS: Metoprolol Tartrate 100 MG TAB PO SCH (09:07)
[2019-03-01] MEDS: Atorvastatin Calcium 40 MG TAB PO SCH (09:07)
[2019-03-01] MEDS: Levothyroxine Sodium 50 MCG TAB PO SCH (09:07)
[2019-03-01] MEDS: Aspirin 81 mg Enteric Coated Tablet PO SCH (09:08)
[2019-03-01] MEDS: guaiFENesin ER 600 MG TAB PO SCH (09:08)
[2019-03-01] MEDS: Amlodipine 10 MG TAB PO SCH (09:08)
[2019-03-01] MEDS: Docusate 100 MG CAP PO SCH (09:08)
[2019-03-01] MEDS: predniSONE 20 MG TAB PO SCH (09:08)
[2019-03-01] MEDS: Furosemide 20 MG TAB PO SCH (09:08)
[2019-03-01] MEDS: Montelukast Sodium 10 mg Tablet PO SCH (09:08)
[2019-03-01] MEDS: rOPINIRole HCl 2 MG TAB PO SCH (09:08)
[2019-03-01] MEDS: Citalopram 20 MG TAB PO SCH (09:08)
[2019-03-01] MEDS: metFORMIN 500 MG TAB PO SCH (09:09)
[2019-03-01] MEDS: Famotidine 20 MG TAB PO SCH (09:09)
[2019-03-01] MEDS: Ketotifen Fumarate 0.025% Ophth Soln 5 ml Bottle EA EYE SCH (09:15)
[2019-03-01] MEDS: Fluticasone Propionate Nasal Spray 16 gm Bottle NASAL SCH (09:16)
[2019-03-01] MEDS: Enoxaparin Sodium 40 MG/0.4 ML SYRINGE SC SCH (09:19)
[2019-03-01] MEDS: Azelastine 137 MCG/Spray 30 ML NS SCH (09:19)
--- NOTE | 2019-03-01 09:56 | PDOC.PN ---
- Subjective Encounter Start Date: 03/01/19 Encounter Start Time: 08:20 Patient seen and examined. No new complaints. No overnight events - Objective Resuscitation Status - Order Detail: 02/25/19 13:24 Resuscitation Status Routine Resuscitation Status: DNAR: NO Resuscitation Discussed with: discussed with daughter MEHDI Reviewed: Yes Vital Signs & Weight: Vital Signs (12 hours) Temp Pulse Resp BP Pulse Ox 03/01/19 09:08 93 03/01/19 08:13 98.3 F 93 18 163/67 H 93 L 03/01/19 06:39 84 16 95 03/01/19 06:38 84 18 95 03/01/19 02:27 93 L 02/28/19 23:05 93 L Weight Admit Weight 131 lb 2 oz Weight 131 lb 2 oz Most Recent Monitor Data Heart Rate from ECG 90 NIBP 160/96 NIBP BP-Mean 117 Respiration from ECG 24 SpO2 99 I&O: 02/28/19 03/01/19 03/02/19 06:59 06:59 06:59 Intake Total 1060 900 Output Total 925 875 Balance 135 25 Result Diagrams: 02/28/19 08:44 02/28/19 08:44 Additional Labs: Accuchecks 03/01/19 02/28/19 02/28/19 04:12 21:08 16:30 POC Glucose 87 168 H 163 H 02/28/19 12:01 POC Glucose 118 H Phys Exam - Physical Examination Constitutional: NAD HEENT: PERRLA, moist MMs, sclera anicteric Neck: no JVD, supple Respiratory: no wheezing, no rales, no rhonchi Cardiovascular: RRR, no significant murmur, no rub Gastrointestinal: soft, non-tender, no distention Lymphatic: no nodes Psychiatric: normal affect Skin: no rash, normal turgor Dx/Plan (1) Acute on chronic diastolic ACC/AHA stage C congestive heart failure Code(s): I50.33 - ACUTE ON CHRONIC DIASTOLIC (CONGESTIVE) HEART FAILURE Status : Acute (2) Acute respiratory failure with hypoxemia Code(s): J96.01 - ACUTE RESPIRATORY FAILURE WITH HYPOXIA Status: Acute (3) COPD with acute bronchitis Code(s): J44.0 - CHRONIC OBSTRUCTIVE PULMON DISEASE W ACUTE LOWER RESP INFCT; J20.9 - ACUTE BRONCHITIS, UNSPECIFIED Status: Acute (4) Lactic acidosis Code(s): E87.2 - ACIDOSIS Status: Acute (5) Sepsis with acute organ dysfunction Code(s): A41.9 - SEPSIS, UNSPECIFIED ORGANISM; R65.20 - SEVERE SEPSIS WITHOUT SEPTIC SHOCK Status: Acute (6) Anxiety and depression Code(s): F41.9 - ANXIETY DISORDER, UNSPECIFIED; F32.9 - MAJOR DEPRESSIVE DISORDER, SINGLE EPISODE, UNSPECIFIED Status: Chronic (7) Diabetes type 2, controlled Code(s): E11.9 - TYPE 2 DIABETES MELLITUS WITHOUT COMPLICATIONS Status: Chronic (8) Hypertension Code(s): I10 - ESSENTIAL (PRIMARY) HYPERTENSION Status: Chronic (9) Hypothyroidism Code(s): E03.9 - HYPOTHYROIDISM, UNSPECIFIED Status: Chronic (10) Multiple sclerosis Code(s): G35 - MULTIPLE SCLEROSIS Status: Chronic (11) Obesity (BMI 30.0-34.9) Code(s): E66.9 - OBESITY, UNSPECIFIED Status: Chronic (12) Parkinson disease Code(s): G20 - PARKINSON'S DISEASE Status: Chronic (13) S/P AKA (above knee amputation) bilateral Code(s): Z89.611 - ACQUIRED ABSENCE OF RIGHT LEG ABOVE KNEE; Z89.612 - ACQUIRED ABSENCE OF LEFT LEG ABOVE KNEE Status: Chronic - Plan cont current plan of care, continue antibiotics, respiratory therapy * medication reviewed as below * symptomatic treatment * see discharge amanda. Review of Systems - Review of Systems ENT: negative: Ear Pain, Ear Discharge, Nose Pain, Nose Discharge, Nose Congestion, Mouth Pain, Mouth Swelling, Throat Pain, Throat Swelling, Other Respiratory: negative: Cough, Dry, Shortness of Breath, Hemoptysis, SOB with Excertion, Pleuritic Pain, Sputum, Wheezing Cardiovascular: negative: chest pain, palpitations, orthopnea, paroxysmal nocturnal dyspnea, edema, light headedness, other Gastrointestinal: negative: Nausea, Vomiting, Abdominal Pain, Diarrhea, Constipation, Melena, Hematochezia, Other Genitourinary: negative: Dysuria, Frequency, Incontinence, Hematuria, Retention , Other - Medications/Allergies Allergies/Adverse Reactions: Allergies Allergy/AdvReac Type Severity Reaction Status Date / Time metronidazole [From Flagyl] Allergy Verified 09/05/18 19:19 morphine Allergy Verified 09/05/18 19:19 Sulfa (Sulfonamide Allergy Verified 09/05/18 19:19 Antibiotics) Medications: Current Medications Acetaminophen (Tylenol) 650 mg PO Q4H PRN PRN Reason: Headache/Fever/Mild Pain (1-3) Last Admin: 02/28/19 17:34 Dose: 650 mg Albuterol Sulfate (Ventolin) 2.5 mg NEB Q4H PRN PRN Reason: Dyspnea/Wheezing/SOB Albuterol/Ipratropium (Duoneb) 3 ml NEB [id number] [facility] Last Admin: 03/01/19 06:39 Dose: 3 ml Albuterol/Ipratropium (Duoneb) 3 ml NEB [id number] PRN PRN Reason: SOB &/or Wheezing Amlodipine Besylate (Norvasc) 10 mg PO DAILY [facility] Last Admin: 03/01/19 09:08 Dose: 10 mg Artificial Tears (Tears Naturale) 2 drop EA EYE PRN PRN PRN Reason: Dry Eyes Aspirin (Ecotrin) 81 mg PO DAILY [facility] Last Admin: 03/01/19 09:08 Dose: 81 mg Atorvastatin Calcium (Lipitor) 40 mg PO DAILY [facility] Last Admin: 03/01/19 09:07 Dose: 40 mg Azelastine HCl (Azelastine) 0 ml NS DAILY [facility] Last Admin: 03/01/19 09:19 Dose: Not Given Baclofen (Lioresal) 10 mg PO BID [facility] Last Admin: 03/01/19 09:07 Dose: 10 mg Bisacodyl (Dulcolax) 10 mg [place] DAILYPRN PRN PRN Reason: Constipation Bisacodyl (Dulcolax) 10 mg PO DAILYPRN PRN PRN Reason: Constipation Last Admin: 02/26/19 23:33 Dose: 10 mg Calcium Carbonate (Tums) 1,000 mg PO Q4H PRN PRN Reason: Heartburn or Indigestion Citalopram Hydrobromide (Celexa) 20 mg PO DAILY [facility] Last Admin: 03/01/19 09:08 Dose: 20 mg Dextrose/Water (Dextrose 50%) 25 gm SLOW IVP PRN PRN PRN Reason: Hypoglycemia Docusate Sodium (Colace) 100 mg PO BID [facility] Last Admin: 03/01/19 09:08 Dose: 100 mg Enoxaparin Sodium (Lovenox) 40 mg SC 0900 [facility] Last Admin: 03/01/19 09:19 Dose: 40 mg Famotidine (Pepcid) 20 mg PO BID [facility] Last Admin: 03/01/19 09:09 Dose: 20 mg Ferrous Sulfate (Feosol) 325 mg PO BID [facility] Last Admin: 03/01/19 09:07 Dose: 325 mg Fluticasone Propionate (Flonase Nasal [place]) 0 gm NASAL DAILY [facility] Last Admin: 03/01/19 09:16 Dose: 2 sprays Furosemide (Lasix) 20 mg PO 0900,1400 [facility] Last Admin: 03/01/19 09:08 Dose: 20 mg Glucagon (Glucagon) 1 mg IM PRN PRN PRN Reason: Hypoglycemia Guaifenesin (Robitussin Sf) 200 mg PO Q4H PRN PRN Reason: Cough Guaifenesin (Mucinex) 600 mg PO BID [facility] Last Admin: 03/01/19 09:08 Dose: 600 mg Hydralazine HCl (Apresoline) 10 mg SLOW IVP Q4H PRN PRN Reason: SBP > 180 and HR < 70 Cefepime HCl 2 gm/ Sodium (Chloride) 100 mls @ 200 mls/hr IVPB Q12H [facility] Last Admin: 02/28/19 23:47 Dose: 100 mls Dextrose/Water (D5w) 1,000 mls @ 0 mls/hr IV .Q0M PRN PRN Reason: Hypoglycemia Insulin Human Lispro (Humalog) 0 units SC .MODERATE SLIDING SC PRN PRN Reason: Moderate Correctional Scale Last Admin: 02/28/19 17:28 Dose: 2 unit Insulin Human Lispro (Humalog) 0 units SC .BEDTIME SLIDING SC PRN PRN Reason: Bedtime Correctional Scale Isosorbide Mononitrate (Imdur) 60 mg PO DAILY [facility] Last Admin: 03/01/19 09:08 Dose: 60 mg Ketotifen Fumarate (Zaditor 0.025% Oph Soln) 1 drop EA EYE BID [facility] Last Admin: 03/01/19 09:15 Dose: 1 drop Levothyroxine Sodium (Synthroid) 50 mcg PO DAILY [facility] Last Admin: 03/01/19 09:07 Dose: 50 mcg Lisinopril (Zestril) 40 mg PO DAILY [facility] Last Admin: 03/01/19 09:07 Dose: 40 mg Loperamide HCl (Imodium) 2 mg PO PRN PRN PRN Reason: Diarrhea/Loose Stools Loratadine (Claritin) 10 mg PO DAILYPRN PRN PRN Reason: Sinus Symptoms Metformin HCl (Glucophage) 500 mg PO BID [facility] Last Admin: 03/01/19 09:09 Dose: 500 mg Metoprolol Tartrate (Lopressor) 100 mg PO BID [facility] Last Admin: 03/01/19 09:07 Dose: 100 mg Mineral Oil/White Petrolatum (Eucerin Cream) 0 gm TOP BIDPRN PRN PRN Reason: Dry Skin Mometasone Furoate (Asmanex Hfa 100 Mcg) 1 puff INH BID-RT [facility] Last Admin: 03/01/19 06:38 Dose: 1 puff Montelukast Sodium (Singulair) 10 mg PO DAILY [facility] Last Admin: 03/01/19 09:08 Dose: 10 mg Ondansetron HCl (Zofran Odt) 4 mg PO Q6H PRN PRN Reason: Nausea/Vomiting Ondansetron HCl (Zofran) 4 mg IVP Q6H PRN PRN Reason: Nausea/Vomiting Glatiramer Acetate [ (Copaxone] 20 Mg) 0 each SC DAILY [facility] Prednisone (Prednisone) 20 mg PO QAM-WM [facility] Last Admin: 03/01/19 09:08 Dose: 20 mg Primidone (Mysoline) 100 mg PO TID [facility] Last Admin: 03/01/19 09:06 Dose: 100 mg Ropinirole HCl (Requip) 2 mg PO TID [facility] Last Admin: 03/01/19 09:08 Dose: 2 mg Saccharomyces Boulardii (Florastor) 250 mg PO DAILY [facility] Last Admin: 03/01/19 09:07 Dose: 250 mg Senna/Docusate Sodium (Senokot S) 2 tab PO BID PRN PRN Reason: Constipation Sodium Chloride ([place] Nasal [place] 0.65%) 0 ml EA NARE QIDPRN PRN PRN Reason: Nasal Congestion Sodium Chloride (Flush - Normal Saline) 10 ml IVF Q12HR [facility] Last Admin: 03/01/19 09:19 Dose: 10 ml Sodium Chloride (Flush - Normal Saline) 10 ml IVF PRN PRN PRN Reason: Saline Flush Last Admin: 02/25/19 11:36 Dose: 10 ml Throat Lozenges (Cepastat Lozenges) 1 adrián PO Q2H PRN PRN Reason: Sore Throat Zolpidem Tartrate (Ambien) 10 mg PO HSPRN PRN PRN Reason: SLEEP Last Admin: 02/28/19 21:05 Dose: 10 mg
--- NOTE | 2019-03-01 11:24 | DIS ---
DATE OF ADMISSION: 02/25/2019 DATE OF DISCHARGE: 03/01/2019 PRIMARY CARE PHYSICIAN: Dr. Reena Justice. DISCHARGE DISPOSITION: shelter home. PRIMARY DISCHARGE DIAGNOSES: 1. Acute on chronic diastolic congestive heart failure, stage C. 2. Acute respiratory failure with hypoxia. 3. Chronic obstructive pulmonary disease with acute bronchitis. 4. Lactic acidosis. 5. Sepsis with acute organ dysfunction. 6. Urinary tract infection due to Escherichia coli. SECONDARY DISCHARGE DIAGNOSES: Status post history of bilateral [id number] amputations, Parkinson disease, obesity, multiple sclerosis, hypothyroidism, hypertension, diabetes type 2, anxiety and depression, chronic diastolic heart failure, chronic obstructive pulmonary disease. PRIMARY PROCEDURE/OPERATION: None. RADIOLOGICAL INVESTIGATION: Chest x-ray; echocardiography showed EF 60% to 65% SIGNIFICANT LABORATORY DATA: Hemoglobin 12.0. Creatinine 0.62. Urinalysis unremarkable. Blood culture negative. Urine culture grew E coli. Influenza negative. DISCHARGE MEDICATIONS: New medications; 1. Omnicef 300 mg p.o. b.i.d. for 5 days. 2. Prednisone 20 mg p.o. daily for 5 days. 3. Florastor 250 mg p.o. daily for 5 days. Continue following medications; 1. Albuterol sulfate inhalation q.4 hourly p.r.n. 2. Naproxen 250 mg b.i.d. p.r.n. 3. Zofran 4 mg q.12 hourly p.r.n. 4. Norvasc 10 mg daily. 5. Aspirin 81 mg daily. 6. Lipitor 40 mg p.o. daily. 7. Azelastine nasal spray daily. 8. Baclofen 10 mg t.i.d. 9. Celexa 20 mg daily. 10. Clonidine 0.1 mg b.i.d. 11. Colace 100 mg b.i.d. 12. Ferrous sulfate 325 mg p.o. b.i.d. 13. Flovent inhalation daily. 14. Flonase nasal spray daily. 15. Lasix 20 mg daily. 16. Glatiramer acetate 20 mg subcu daily. 17. Atrovent inhaler b.i.d. 18. Imdur 60 mg daily. 19. Synthroid 50 mcg daily. 20. Lisinopril 40 mg p.o. daily. 21. Glucophage 500 mg p.o. b.i.d. 22. Metoprolol tartrate 100 mg b.i.d. 23. Singulair 10 mg daily. 24. [place] ophthalmic drops daily. 25. Mysoline 100 mg t.i.d. 26. Ropinirole 2 mg p.o. t.i.d. 27. Ambien 10 mg p.o. q.h.s. p.r.n. CONTRAINDICATION: None. CODE STATUS: DNR. INPATIENT MACHINE RIVETER: Dr. Kasper was following while in hospital. TEST RESULTS PENDING ON DISCHARGE: None. ALLERGIES: METRONIDAZOLE, MORPHINE, SULFA DRUGS. DISCHARGE PLAN: Post-hospital, the patient will be discharged back to [facility] and subsequently, she will follow up with primary care physician. HOSPITAL COURSE: A 73-year-old female with above-mentioned medical problem, who was admitted by me. Please see my HPI for further details. [facility], where she was having increasing shortness of breath and cough. She was hypoxic on admission. She was suffering from acute bronchitis with COPD flare-up. The patient was also having acute on chronic diastolic heart failure exacerbation. During this admission, echocardiography showed normal EF. She was treated with empiric antibiotic therapy with cefepime, Levaquin, as well as IV Lasix for diastolic heart failure. The patient was initially admitted in IMCU because she initially required a BiPAP in the ER and subsequently BiPAP was discontinued. Next day, the patient was stable and we transferred her to medical floor. We continued all her medication. We discontinued Levaquin and subsequently, we changed cefepime to p.o. Omnicef. Her urinalysis was consistent with UTI and urine culture came back positive for UTI. This patient has chronic indwelling Gonsalez catheter and her urinary tract infection is related with chronic indwelling Gonsalez catheter. Current antibiotic therapy Omnicef will cover UTI as well as bronchitis. The patient is given a short course of prednisone taper on discharge. The patient will continue all her previous medication. The patient is seen and examined at bedside today. Pulmonary group cleared her for discharge. The patient is medically stable for discharge. Paperwork for discharge done. Discharge medication reconciliation done. Job ID: [id number]
[2019-03-01 13:32] VITALS: BP 137/62; TEMP 98.5
== END 2019-03-01 13:28 | DRG 871 ==
LOC: ERS 04:40 → IMCU/EMU 09:21 → T4-A 02-26 16:20
PROVIDERS: ADMIT Internal Medicine; ATTEND Internal Medicine
PROC: 5A09357 Assistance with Respiratory Ventilation, Less than 24 Consecutive Hours, Continuous Positive Airway Pressure (ICD-10-PCS; principal; 2019-02-25)
DX: A41.9 Sepsis, unspecified organism (principal); J96.01 Acute respiratory failure with hypoxia; I50.33 Acute on chronic diastolic (congestive) heart failure; T83.511A Infection and inflammatory reaction due to indwelling urethral catheter, initial encounter; J45.31 Mild persistent asthma with (acute) exacerbation; J44.1 Chronic obstructive pulmonary disease with (acute) exacerbation; N39.0 Urinary tract infection, site not specified; J44.0 Chronic obstructive pulmonary disease with (acute) lower respiratory infection; Z66 Do not resuscitate; R65.20 Severe sepsis without septic shock; G20 Parkinson's disease; I25.10 Atherosclerotic heart disease of native coronary artery without angina pectoris; G35 Multiple sclerosis; K21.9 Gastro-esophageal reflux disease without esophagitis; L89.322 Pressure ulcer of left buttock, stage 2; L89.312 Pressure ulcer of right buttock, stage 2; G47.00 Insomnia, unspecified; D64.9 Anemia, unspecified; J20.9 Acute bronchitis, unspecified; B96.20 Unspecified Escherichia coli [E. coli] as the cause of diseases classified elsewhere; E11.51 Type 2 diabetes mellitus with diabetic peripheral angiopathy without gangrene; E03.9 Hypothyroidism, unspecified; I11.0 Hypertensive heart disease with heart failure; E78.5 Hyperlipidemia, unspecified; F41.9 Anxiety disorder, unspecified; F32.9 Major depressive disorder, single episode, unspecified; E66.9 Obesity, unspecified; Z89.612 Acquired absence of left leg above knee; Z68.34 Body mass index [BMI] 34.0-34.9, adult; Z88.8 Allergy status to other drugs, medicaments and biological substances; Z87.891 Personal history of nicotine dependence; Z90.49 Acquired absence of other specified parts of digestive tract; Z88.2 Allergy status to sulfonamides; Z88.5 Allergy status to narcotic agent; Z79.82 Long term (current) use of aspirin; Z79.899 Other long term (current) drug therapy; Z79.84 Long term (current) use of oral hypoglycemic drugs; Z89.611 Acquired absence of right leg above knee; Z79.51 Long term (current) use of inhaled steroids
CPT/HCPCS: 36415; 36416; 51702; 71045; 80048; 80053; 81003; 81015; 83605; 83735; 83880; 84484; 85025; 87040; 87077; 87086; 87186; 87804; 93005; 93306; 94640; 94660; 96365; 96367; 96375; J0692; J1650; J1940; J1956; J2060; J2920; J2930; J3475; J3490; J7512; J7620; S0028

== ENCOUNTER 2019-09-03 14:49 | Inpatient (IN) | payer MEDICARE, MEDICAID ==
[2019-09-03 15:08] LABS: Bilirubin Large (Negative); Blood, Urine Trace (Negative); Glucose, Urine (Dipstick) Negative (Negative); Leukocyte Large (Negative); Nitrite Negative (Negative); Protein, Urine (Dipstick) 100 mg/dL (Neg-Trace)
[2019-09-03 15:12] LABS: Clarity Opaque (Clear)
[2019-09-03 15:25] LABS: RBC/HPF 0-3 HPF (0-3); WBC/HPF Greater Than 50 HPF (0-3)
[2019-09-03 15:26] LABS: Bacteria/HPF 4+ HPF (None Seen)
[2019-09-03 15:46] LABS: #Eosinphils 0.4 thou/uL (0.0-0.7); #Lymphocytes 2.3 thou/uL (1.20-3.40); #Monocytes 1.4 thou/uL (0.11-0.59); #Neutrophils 14.8 thou/uL (1.40-6.50); %Basophils 0.2 % (0.0-1.0); %Eosinophils 2.4 % (0.0-10.0); %Lymphocytes 12.1 % (21.0-51.0); %Monocytes 7.4 % (0.0-10.0); %Neutrophils 77.9 % (42.0-75.0); Hemoglobin 11.4 g/dL (12.0-16.0); Mean Corpuscular HGB CONC 33.1 g/dL (32.0-36.0); Mean Corpuscular Hemoglobin 29.2 pg (27.0-31.0); Mean Corpuscular Volume 88.4 fL (78.0-98.0); Mean Platelet Volume 8.5 fL (7.4-10.4); Platelet Count 236 thou/uL (130-400); RBC Distribution Width 12.9 % (11.5-14.5); Red Blood Cell (RBC) Count 3.88 mill/uL (4.20-5.40)
[2019-09-03 15:47] LABS: Base Excess-Venous -3.5 mmol/L (-2.0 to 3.0); Bicarbonate (HCO3v) 19.9 mmol/L (22.0-28.0); CO2 Tension (PvCO2) 30.3 mmHg (40.0-50.0); Calcium, Ionized 0.93 mmol/L (See Comments:); Chloride 105 mmol/L (98-107); Hemoglobin - Calc 12.5 g/dL (12.0-16.0); Potassium 5.4 mmol/L (3.5-5.1); Sodium 134 mmol/L (138-145); T. Carbon Dioxide 20.8 mmol/L (22.0-28.0); vO2 Saturation-calc 95.8 % (60.0-85.0)
--- NOTE | 2019-09-03 15:55 | CT ---
Exam: Head CT without contrast HISTORY: Altered mental status. COMPARISON: none FINDINGS: Hemorrhage: No intraparenchymal hemorrhage or extra-axial hematoma. Brain parenchyma: Cortical jennings-white matter differentiation is preserved. No mass effect or midline shift. Basilar cisterns are patent.White matter hypodensities due to chronic small vessel ischemic change. Ventricular system: Ventricles and sulci are patent and symmetric. Calvarium: Intact. Sinuses and mastoid air cells: There is paranasal sinus mucosal thickening predominantly involving th e ethmoid air cells and visualized maxillary sinuses. Partial opacification the left mastoid air cells. IMPRESSION: 1. No acute intracranial process 2. Sinus disease and left mastoid opacification.
[2019-09-03 16:03] LABS: ALT (SGPT) 31 U/L (8-55); AST (SGOT) 41 U/L (5-34); Albumin 3.2 g/dL (3.4-4.8); Alkaline Phosphatase 84 U/L (40-110); Anion Gap 23 mmol/L (10-20); BUN (Urea Nitrogen) 42 mg/dL (9.8-20.1); Bilirubin, Total 0.3 mg/dL (0.2-1.2); CK (CPK) 220 U/L (29-168); Calc. Creatinine Clearance 0 mL/min (70-130); Calcium 8.4 mg/dL (7.8-10.44); Carbon Dioxide 19 mmol/L (23-31); Chloride 99 mmol/L (98-107); Estimated GFR-MDRD 24; Globulin 2.9 g/dL (2.4-3.5); Glucose 111 mg/dL (83-110); Lipase Less than 4 U/L (8-78); Potassium 5.8 mmol/L (3.5-5.1); Protein, Total 6.1 g/dL (6.0-8.3); Sodium 135 mmol/L (136-145)
--- NOTE | 2019-09-03 16:05 | RAD ---
EXAM: Single view of the chest HISTORY: Altered mental status COMPARISON: 02/25/2019 FINDINGS: Single view of the chest shows a normal sized cardiomediastinal silhouette. Atheroscleroti c calcifications are seen in the aorta. Increased interstitial markings are present. There is no evidence of consolidation, mass, or pleural effusion. The bones are unremarkable. IMPRESSION: No evidence of acute cardiopulmonary disease
[2019-09-03] MEDS ORDERED: cefTRIAXone\\ROCEPHIN 2 GM VIAL ONE (19:24)
[2019-09-03] MEDS ORDERED: Bisacodyl 5 MG TAB PO PRN (20:11)
[2019-09-03] MEDS ORDERED: Sodium Chloride 0.9% 1,000 ML IV SCH (20:15)
--- NOTE | 2019-09-03 20:54 | HP ---
PRIMARY CARE PROVIDER: Reshma Valles DO CHIEF COMPLAINT: Altered mental status. HISTORY OF PRESENT ILLNESS: Ms. Hester is a pleasant 73-year-old lady, who was seen at [facility] on September 03, 2019. The patient is currently oriented to person only, unable to provide any significant history. Collateral history was obtained from family by the bedside, review of medical records, and discussion with emergency room physician. The patient has a history of multiple sclerosis and is a resident of [facility]. She reportedly had altered mental status today. The patient at baseline is aware of what is happening, holds long conversations and recognizes people well. She is wheelchair bound because of bilateral bony amputations. The patient also has a history of indwelling Gonsalez catheter over the last 10 to 15 years. She appears to have had multiple episodes of urinary tract infections. The organism has been Escherichia coli in the past. In the emergency room, urinalysis from chronic indwelling Gonsalez was suspicious for urinary tract infection. The patient was therefore referred to Hospitalist Service for admission. REVIEW OF SYSTEMS: Could not be completed secondary to the patient's altered mental status. PAST MEDICAL HISTORY: Diabetes mellitus type 2, hypertension, multiple sclerosis, asthma/COPD, hypothyroidism, Parkinson disease, coronary artery disease, chronic physical deconditioning, and chronic diastolic congestive heart failure. PAST SURGICAL HISTORY: Cholecystectomy, appendectomy, bilateral above-knee amputation, left hand surgery, and right ear surgery. PSYCHIATRIC HISTORY: Anxiety, depression, and insomnia. SOCIAL HISTORY: No history of tobacco use, alcohol use, or recreational drug use. FAMILY HISTORY: Positive for diabetes and coronary artery disease among several family members. CODE STATUS: I discussed her code status. She is DNAR. CURRENT MEDICATIONS: 1. Ambien 5 mg at bedtime. 2. Amlodipine 5 mg daily. 3. Aspirin 81 mg daily. 4. Atorvastatin 40 mg daily. 5. Baclofen 10 mg 2 times a day. 6. Colace 100 mg daily. 7. Copaxone 20 mg subcutaneously daily. 8. Flovent HFA one puff daily. 9. Isosorbide mononitrate 60 mg daily. 10. Lisinopril 40 mg daily. 11. Metformin 500 mg 2 times a day. 12. Metoprolol tartrate 100 mg daily. 13. Naproxen 250 mg 2 times a day. 14. Patanol eye drops. 15. Primidone 50 mg 2 times a day. 16. Ropinirole 2 mg 3 times a day. 17. Nexium 40 mg daily. 18. Clonidine 0.1 mg 2 times a day. 19. Iron 325 mg daily. 20. Lasix 20 mg daily. 21. Melatonin 3 mg at bedtime. 22. Trazodone 100 mg at bedtime as needed. PHYSICAL EXAMINATION: GENERAL: On examination, Ms. Hester is awake, not very alert. VITAL SIGNS: Blood pressure is 155/75, pulse 86, respiratory rate 18, and oxygen saturation 97% on room air. She has been afebrile in the emergency room. EYES: No scleral icterus. No conjunctival pallor. ENT: Dry mucosal membranes. No oropharyngeal erythema or exudates. NECK: Supple, nontender. Trachea is midline. RESPIRATORY: Accessory muscles of breathing are not active. Chest wall movements are symmetric bilaterally. Lungs are clear to auscultation without wheeze, rhonchi, or crepitations. CARDIOVASCULAR: S1 and S2 are heard, regular. ABDOMEN: Soft, nontender. Bowel sounds heard. NEUROLOGIC: Unable to do full neurologic examination secondary to the patient's noncooperation. There is no facial droop. MUSCULOSKELETAL: The patient is status post above-knee amputation bilaterally. SKIN: No rashes. LYMPHATIC: No cervical lymphadenopathy. PSYCHIATRIC: The patient is oriented to person only. She knows that she is in the hospital, unable to tell me month or year. LABORATORY DATA: Ms. Hester's labs and investigations were reviewed. Electrocardiogram showed normal sinus rhythm, no ST changes to suggest an acute coronary syndrome. Chest x-ray did not show any pulmonary infiltrates. Noncontrast CT scan of the brain did not show any acute intracranial process. She had sinus disease and mastoid opacification. She has leukocytosis with 19,000 white cells, of which 77.9% are neutrophils. She has normocytic anemia with hemoglobin 11.4, normal platelet count, decreased sodium of 134, elevated potassium of 5.4, elevated blood urea nitrogen of 42, elevated creatinine of 2.03, creatinine was 0.72 on August 07, 2019, mildly elevated AST of 41, normal ALT, elevated creatine kinase of 220, decreased albumin of 3.2, normal troponin I, elevated lactic acid level of 2.6, and urinalysis that is positive for large amount of leukocyte esterase and negative for nitrite. ASSESSMENT AND PLAN: Ms. Hester is a pleasant 73-year-old lady, who was seen at [facility] on September 03, 2019. Her problem list includes: 1. Acute metabolic encephalopathy: Ms. Hester is presenting with acute metabolic encephalopathy, likely secondary to urinary tract infection. She will be admitted to the hospital for further management. 2. Urinary tract infection: Given her history of recurrent urinary tract infections and chronic indwelling Gonsalez catheter, it is unclear whether this is a true infection or colonization. For now, the patient will be treated with broad-spectrum intravenous antibiotics. She has already received ceftriaxone and vancomycin. I will continue vancomycin and start her on meropenem. We will await blood cultures and urine cultures. 3. Acute kidney injury: Most likely secondary to dehydration. The patient is clinically dehydrated. We will hold metformin and lisinopril. We will provide gentle hydration, keeping an eye on her volume status since she also has a history of congestive heart failure. 4. Diabetes mellitus, type 2: Start Accu-Cheks and insulin sliding scale. 5. History of multiple sclerosis: Continue Copaxone. 6. Hypertension: Hold lisinopril. Continue rest of antihypertensives, monitor vital signs, and titrate antihypertensives as needed. 7. Dyslipidemia: Continue atorvastatin. Many thanks for allowing me to participate in your patient's care. Please feel free to contact me with any questions or concerns. LEVEL OF RISK: Moderate. LEVEL OF COMPLEXITY: Moderate. Job ID: [id number]
[2019-09-03] MEDS ORDERED: MEROPENEM 1 GM/50 ML 1 GM in Premix Bag 1 BAG IVPB SCH (22:00)
[2019-09-03 22:02] LABS: Lactic Acid 1.1 mmol/L (0.5-2.2)
[2019-09-03] MEDS: Sodium Chloride 0.9% 1,000 ML IV SCH (22:15)
[2019-09-03] MEDS: Heparin 5,000 UNITS/ML VIAL SC SCH (22:16)
[2019-09-03] MEDS: Baclofen 10 MG TAB PO SCH (22:16)
[2019-09-03] MEDS: cloNIDine 0.1 MG TAB PO SCH (22:16)
[2019-09-03] MEDS: Docusate 100 MG CAP PO SCH (22:16)
[2019-09-03] MEDS: Acetaminophen 325 MG TAB PO PRN (22:18)
[2019-09-03] MEDS: Primidone 50 MG TAB PO SCH (22:33)
[2019-09-03] MEDS: Metoprolol Tartrate 100 MG TAB PO SCH (22:36)
[2019-09-03] MEDS: rOPINIRole HCl 2 MG TAB PO SCH (22:36)
[2019-09-04] MEDS: Levothyroxine Sodium 50 MCG TAB PO SCH (05:29)
[2019-09-04 07:30] LABS: #Eosinphils 0.6 thou/uL (0.0-0.7); #Lymphocytes 1.3 thou/uL (1.20-3.40); #Monocytes 0.9 thou/uL (0.11-0.59); #Neutrophils 10.7 thou/uL (1.40-6.50); %Basophils 0.3 % (0.0-1.0); %Eosinophils 4.5 % (0.0-10.0); %Lymphocytes 9.3 % (21.0-51.0); %Monocytes 6.6 % (0.0-10.0); %Neutrophils 79.3 % (42.0-75.0); Hemoglobin 10.3 g/dL (12.0-16.0); Mean Corpuscular HGB CONC 31.6 g/dL (32.0-36.0); Mean Corpuscular Hemoglobin 27.9 pg (27.0-31.0); Mean Corpuscular Volume 88.3 fL (78.0-98.0); Mean Platelet Volume 9.1 fL (7.4-10.4); Platelet Count 235 thou/uL (130-400); RBC Distribution Width 12.7 % (11.5-14.5); White Blood Cell (WBC) Count 13.4 thou/uL (4.8-10.8)
[2019-09-04 07:50] LABS: Anion Gap 18 mmol/L (10-20); BUN (Urea Nitrogen) 42 mg/dL (9.8-20.1); Calc. Creatinine Clearance 21 mL/min (70-130); Calcium 7.8 mg/dL (7.8-10.44); Carbon Dioxide 19 mmol/L (23-31); Chloride 101 mmol/L (98-107); Estimated GFR-MDRD 22; Glucose 109 mg/dL (83-110); Potassium 5.1 mmol/L (3.5-5.1); Sodium 133 mmol/L (136-145)
[2019-09-04] MEDS: Baclofen 10 MG TAB PO SCH ×3 (08:07→20:38)
[2019-09-04] MEDS: Acetaminophen 325 MG TAB PO PRN ×2 (08:07→12:23)
[2019-09-04] MEDS: cloNIDine 0.1 MG TAB PO SCH ×2 (08:08→20:38)
[2019-09-04] MEDS: Atorvastatin Calcium 40 MG TAB PO SCH (08:08)
[2019-09-04] MEDS: Citalopram 20 MG TAB PO SCH (08:09)
[2019-09-04] MEDS: Aspirin 81 mg Enteric Coated Tablet PO SCH (08:09)
[2019-09-04] MEDS: Heparin 5,000 UNITS/ML VIAL SC SCH ×3 (08:09→20:42)
[2019-09-04] MEDS: Saccharomyces boulardii 250 MG CAP PO SCH (08:09)
[2019-09-04] MEDS: Ferrous Sulfate 325 MG TAB PO SCH ×2 (08:09→17:51)
[2019-09-04] MEDS: Docusate 100 MG CAP PO SCH ×2 (08:10→20:39)
[2019-09-04] MEDS ORDERED: Amlodipine 10 MG TAB PO SCH (09:00)
[2019-09-04] MEDS: Metoprolol Tartrate 100 MG TAB PO SCH ×2 (09:28→20:41)
[2019-09-04] MEDS: Ketotifen Fumarate 0.025% Ophth Soln 5 ml Bottle EA EYE SCH ×2 (09:28→20:41)
[2019-09-04] MEDS: rOPINIRole HCl 2 MG TAB PO SCH ×3 (09:28→20:41)
[2019-09-04] MEDS: Primidone 50 MG TAB PO SCH ×3 (09:29→20:40)
[2019-09-04] MEDS: Sodium Chloride 0.9% 1,000 ML IV SCH (09:31)
[2019-09-04] MEDS: Meropenem 500 MG in Sodium Chloride 0.9% 100 ML IVPB SCH ×2 (09:32→20:52)
[2019-09-04] MEDS ORDERED: Ondansetron PF 4 MG/2 ML Vial IVP SCH (11:00)
[2019-09-04] MEDS: Sodium Bicarbonate 75 MEQ in Sodium Chloride 0.45% 1,000 ML IV SCH (12:23)
[2019-09-04] MEDS: Haloperidol Lactate 5 MG/ML VIAL IM PRN (12:30)
[2019-09-04 12:47] LABS: Creatinine, Urine 48.01 mg/dL (47-110)
[2019-09-04 13:54] LABS: ALT (SGPT) 26 U/L (8-55); AST (SGOT) 37 U/L (5-34); Alkaline Phosphatase 89 U/L (40-110); Bilirubin, Direct 0.1 mg/dL (0.1-0.3); Bilirubin, Total 0.2 mg/dL (0.2-1.2); CK (CPK) 141 U/L (29-168)
--- NOTE | 2019-09-04 15:25 | CT ---
CT ABDOMEN AND PELVIS WITHOUT IV CONTRAST: INDICATIONS: Abdominal pain with vomiting. History of bowel obstruction. COMPARISON: None. TECHNIQUE: Oral contrast was administered. Multiplanar reconstructions. FINDINGS: Images through the lung bases show bibasilar atelectasis. Artifact from hand position limits the exam. The liver and spleen appear unremarkable considering the lack of IV contrast and the streak artifact. The pancreas appears unremarkable. The adrenal glands are normal. The kidneys are unremarkable. No hydronephrosis. The urinary bladder has a Gonsalez catheter in place and is contracted. Small bowel loops show nonspecific distention of the proximal jejunal loops. The ileal loops are of n ormal caliber. Findings are nonspecific. The mild distention does not suggest obstructive change. The colon appears unremarkable. The aorta is calcified but of normal caliber. The pelvic structures a re unremarkable. Review of the osseous structures shows osteopenia. There is also central height at the L1 vertebra wi th superior endplate compression. IMPRESSION: 1. Bibasilar lung atelectasis. 2. Nonspecific distention of the proximal jejunal loops. Findings do not suggest obstruction. No acut e abnormality identified. 3. Of incidental note is questioned mural thickening at the rectum and rectosigmoid junction. Suggest elective colonoscopy to evaluate this region. POS: TPC
[2019-09-04] MEDS ORDERED: Ondansetron PF 4 MG/2 ML Vial IVP PRN (17:00)
--- NOTE | 2019-09-04 17:04 | CON ---
DATE OF CONSULTATION: 09/04/2019 SERVICE: Nephrology. REASON FOR CONSULTATION: Acute kidney injury. REQUESTING PHYSICIAN: Dr. Smith. HISTORY OF PRESENT ILLNESS: A 73-year-old female with multiple comorbidities including diabetes type 2, hypertension, multiple sclerosis, Parkinson, peripheral artery disease, status post bilateral AKA, who was admitted on transfer from [facility] for evaluation and treatment of altered mental status. The patient, a half-way resident at [facility], was sent to the ER due to mental status change. The patient with chronic indwelling Gonsalez catheter with prior history of UTI, was found to have features of urinary tract infection as well as acute kidney injury. She was started on IV fluid, but there has been no significant improvement in renal function, hence Nephrology consult. The patient was unable to provide any significant history due to mental status change. The patient reportedly had several bouts of emesis last night, hence she is currently n.p.o. There is no history of fever or diarrhea. PAST MEDICAL HISTORY: 1. Type 2 diabetes mellitus. 2. Hypertension. 3. Multiple sclerosis. 4. Asthma/COPD. 5. Parkinson disease. 6. Coronary artery disease. 7. Chronic debility. 8. Chronic diastolic heart failure. 9. Peripheral artery disease. 10. Hypothyroidism. 11. Recurrent urinary tract infection. 12. Chronic indwelling Gonsalez catheter for urinary retention. PAST SURGICAL HISTORY: 1. Cholecystectomy. 2. Appendectomy. 3. Bilateral above knee amputation. 4. Left hand surgery. 5. Right ear surgery. FAMILY HISTORY: The patient was unable to provide any significant history. Review of medical records showed that family history is positive for diabetes and coronary artery disease among several family members. SOCIAL HISTORY: The patient currently lives in a half-way. ALLERGIES: 1. METRONIDAZOLE. 2. MORPHINE. 3. SULFONAMIDES. MEDICATIONS: Home medications; 1. Ambien 5 mg at bedtime. 2. Amlodipine 5 mg p.o. daily. 3. Aspirin 81 mg p.o. daily. 4. Lipitor 40 mg p.o. daily. 5. Baclofen 10 mg p.o. b.i.d. 6. Clonidine 0.1 mg p.o. b.i.d. 7. Docusate 100 mg p.o. daily. 8. Esomeprazole 40 mg p.o. daily. 9. Ferrous sulfate 325 mg p.o. daily. 10. Flovent 220 mcg inhalation b.i.d. 11. Furosemide 20 mg p.o. daily. 12. Copaxone 40 mg subcutaneously daily. 13. Isosorbide mononitrate 60 mg p.o. daily. 14. Lisinopril 40 mg p.o. daily. 15. Melatonin 3 mg p.o. daily at bedtime. 16. Metformin 500 mg p.o. b.i.d. 17. Metoprolol 100 mg p.o. daily. 18. Naprosyn 250 mg p.o. b.i.d. 19. Olopatadine 2.5 mL drops to both eyes b.i.d. 20. Primidone 50 mg p.o. b.i.d. 21. Requip 2 mg p.o. t.i.d. 22. Trazodone 100 mg p.o. daily at bedtime. 23. Trimethoprim 100 mg p.o. daily. Current hospital medications; 1. Meropenem 500 mg IV q.12 hours. 2. Normal saline 75 mL/hour intravenously. 3. Vancomycin 750 mg. 4. Amlodipine 10 mg p.o. daily. 5. Aspirin 81 mg p.o. daily. 6. Lipitor 40 mg p.o. daily. 7. Baclofen 10 mg p.o. t.i.d. 8. Citalopram 20 mg p.o. daily. 9. Clonidine 0.1 mg p.o. b.i.d. 10. Docusate 100 mg p.o. b.i.d. 11. Ferrous sulfate 325 mg p.o. b.i.d. 12. Heparin 5000 units subcutaneously t.i.d. 13. Isosorbide mononitrate 60 mg p.o. daily. 14. Ketotifen Fumarate eyedrops b.i.d. 15. Levothyroxine 50 mcg daily. 16. Metoprolol 100 mg p.o. b.i.d. 17. Primidone 100 mg p.o. t.i.d. 18. Requip 2 mg p.o. t.i.d. 19. Florastor 250 mg p.o. daily. 20. Acetaminophen 650 mg p.o. q.4 p.r.n. for pain. 21. Ondansetron 4 mg IV q.6 p.r.n. REVIEW OF SYSTEMS: This could not be performed. PHYSICAL EXAMINATION: VITAL SIGNS: Temperature 98.0, pulse 84, respiratory rate 16, SpO2 of 98% on room air, blood pressure is 164/54. GENERAL: Chronically ill-looking female, in no obvious distress. The patient is somnolent. Afebrile and anicteric. HEENT: Normocephalic and atraumatic. Oral mucosa is dry. NECK: Supple with no JVD or masses. CARDIOVASCULAR: Regular rhythm and rate with normal heart sounds 1 and 2. RESPIRATORY: Fair air entry bilaterally with some transmitted breath sounds. No obvious rhonchi or use of accessory muscles appreciated. GI: Abdomen is distended, but there was no tenderness. Bowel sound is mildly hyperactive. UROGENITAL: Gonsalez catheter is in place, draining some urine. EXTREMITIES: Bilateral above knee amputation with healthy stump noted. 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 She manages to localize pain and say few words. She however seems to repeat the same word. LABORATORY DATA: CBC today showed WBC count of 13.4, hemoglobin of 10.3, MCV of 88.3, and platelet of 235. On presentation yesterday, WBC was 19.0 and hemoglobin was 10.4. BMP today showed sodium 133, potassium 5.1, chloride 101, CO2 of 19, anion gap 18, BUN 42, creatinine 2.14, glucose 109, calcium 7.9, total bilirubin 0.2, AST 37, ALT 26, alkaline phosphatase 89, total protein 6.0, albumin 3.0. On presentation on September 03, CMP showed sodium 135, potassium 5.8, chloride 98, CO2 of 19, anion gap 23, BUN 42, creatinine 2.03, glucose 111, total bilirubin 0.3, AST 41, ALT 31, alkaline phosphatase 84, total protein 6.1, albumin 3.2. Lactic acid on presentation on September 03 was 2.6 and repeat was 1.1. Initial troponin on presentation was 0.011. Ammonia level on presentation was 17. CK on presentation was 220, and repeat today is 141. On August 07, the patient had normal creatinine of 0.72 with potassium of 4.3 and sodium of 141. Urinalysis on presentation showed brown opaque urine with pH of 5.5, specific gravity of 1.020, positive protein, ketone, and trace blood as well as large bilirubin and large leukocyte esterase. Nitrite was negative as well as glucose. Microscopy showed 0 to 3 rbc and greater than 50 wbc with 4+ bacteria. IMAGING STUDIES: Chest x-ray performed on presentation showed no evidence of acute cardiopulmonary disease. CT scan of the brain performed on September 03 showed no acute intracranial process. ASSESSMENT: 1. Acute renal failure: Etiology is unclear, but hemodynamic factors and pyelonephritis with possible obstructive uropathy, likely differentials. Abdomen also is tense concerning for compartment syndrome. 2. Metabolic acidosis: Due to sepsis and acute renal failure. 3. Hyponatremia, this is mild. The patient had emesis. Most likely due to appropriate and inappropriate ADH secretion from volume depletion and emesis. 4. Hyperkalemia: Present on admission, resolved. PLAN: 1. We will get urine electrolytes as well as urine osmolality and serum osmolality. We will also start the patient on bicarb containing infusion given metabolic acidosis. 2. CT scan of the abdomen has already been ordered. I agree with imaging of the abdomen to look for obstructive uropathy and possible pyelonephritis. 3. Agree with broad-spectrum antibiotics for treatment of sepsis. 4. Continue antihypertensives and adjust dose to get adequate BP control. 5. We will monitor renal function and electrolytes. Further recommendation and treatment to follow on review of other diagnostic test. Many thanks for involving us in the care of this patient. We will follow along with you. Job ID: [id number]
[2019-09-04] MEDS ORDERED: Acetaminophen 1,000 MG in Premix Bag 1 BAG IVPB PRN (18:24)
--- NOTE | 2019-09-04 18:26 | PDOC.HOSPP ---
- Subjective Encounter Date: 09/04/19 Encounter Time: 18:25 Subjective: Pt seen for followup re: severe sepsis. Confused, not answering questions, unable to complete ROS. - Objective Vital Signs & Weight: Vital Signs (12 hours) Temp Pulse Resp BP BP Pulse Ox 09/04/19 08:08 84 164/54 H 09/04/19 08:00 98 09/04/19 07:08 98.0 F 84 16 164/54 H 98 Weight Weight 128 lb 8.472 oz I&O: 09/03/19 09/04/19 09/05/19 06:59 06:59 06:59 Intake Total 620 Output Total 350 Balance 270 Result Diagrams: 09/04/19 06:55 09/04/19 06:55 Additional Labs: Accuchecks 09/04/19 11:14 POC Glucose 125 H Labs and MARs reviewed by al Hospitalist ROS - Medication Medications: Active Medications Generic Name Dose Route Start Last Admin Trade Name Freq PRN Reason Stop Dose Admin Acetaminophen 650 mg 09/03/19 20:11 09/04/19 12:23 Tylenol PO 650 mg Q4H PRN Administration Headache/Fever/Mild Pain (1-3) Amlodipine Besylate 10 mg 09/04/19 09:00 09/04/19 08:08 Norvasc PO 10 mg DAILY TARAN Administration Aspirin 81 mg 09/04/19 09:00 09/04/19 08:09 Ecotrin PO 81 mg DAILY TARAN Administration Atorvastatin Calcium 40 mg 09/04/19 09:00 09/04/19 08:08 Lipitor PO 40 mg DAILY TARAN Administration Baclofen 10 mg 09/03/19 21:00 09/04/19 17:51 Lioresal PO 10 mg TID TARAN Administration Citalopram Hydrobromide 20 mg 09/04/19 09:00 09/04/19 08:09 Celexa PO 20 mg DAILY TARAN Administration Clonidine 0.1 mg 09/03/19 21:00 09/04/19 08:08 Catapres PO 0.1 mg BID TARAN Administration Docusate Sodium 100 mg 09/03/19 21:00 09/04/19 08:10 Colace PO Not Given BID TARAN Ferrous Sulfate 325 mg 09/04/19 08:00 09/04/19 17:51 Feosol PO 325 mg BID-WM TARAN Administration Haloperidol Lactate 5 mg 09/04/19 12:20 09/04/19 12:30 Haldol IM 5 mg Q8H PRN Administration Agitation Heparin Sodium (Porcine) 5,000 units 09/03/19 21:00 09/04/19 17:50 Heparin SC 5,000 units TID TARAN Administration Meropenem 500 mg/ Sodium 100 mls @ 200 mls/hr 09/04/19 10:00 09/04/19 09:32 Chloride IVPB 100 mls 1000,2200 TARAN Administration Sodium Bicarbonate 75 meq/ 1,075 mls @ 100 mls/hr 09/04/19 11:15 09/04/19 12: 23 Sodium Chloride IV 1,075 mls INF TARAN Administration Isosorbide Mononitrate 60 mg 09/04/19 09:00 09/04/19 08:07 Imdur PO 60 mg DAILY TARAN Administration Ketotifen Fumarate 1 drop 09/04/19 09:00 09/04/19 09:28 Zaditor 0.025% Ophth Soln EA EYE 1 drop BID [facility] Administration Levothyroxine Sodium 50 mcg 09/04/19 06:00 09/04/19 05:29 Synthroid PO 50 mcg 0600 [facility] Administration Metoprolol Tartrate 100 mg 09/03/19 21:00 09/04/19 09:28 Lopressor PO 100 mg BID TARAN Administration Primidone 100 mg 09/03/19 21:00 09/04/19 17:50 Mysoline PO 100 mg TID [facility] Administration Ropinirole HCl 2 mg 09/03/19 21:00 09/04/19 17:52 Requip PO Not Given TID [facility] Saccharomyces Boulardii 250 mg 09/04/19 09:00 09/04/19 08:09 Florastor PO 250 mg DAILY [facility] Administration Sodium Chloride 10 ml 09/03/19 21:00 09/04/19 09:27 Flush - Normal Saline IVF Not Given Q12HR [facility] - Exam General Appearance: ill appearing Eye: anicteric sclera ENT: moist mucosa Neck: supple Heart: RRR Respiratory: CTAB Gastrointestinal: soft Gastrointestinal - other findings: mild diffuse tenderness, no guarding or rigidity Extremities - other findings: s/p Alexander AKA Psychiatric: lethargic Hosp A/P (1) Severe sepsis Code(s): A41.9 - SEPSIS, UNSPECIFIED ORGANISM; R65.20 - SEVERE SEPSIS WITHOUT SEPTIC SHOCK Status: Acute (2) UTI (urinary tract infection) Status: Acute (3) TRI (acute kidney injury) Code(s): N17.9 - ACUTE KIDNEY FAILURE, UNSPECIFIED Status: Acute (4) Diabetes type 2, controlled Code(s): E11.9 - TYPE 2 DIABETES MELLITUS WITHOUT COMPLICATIONS Status: Chronic (5) Hypertension Code(s): I10 - ESSENTIAL (PRIMARY) HYPERTENSION Status: Chronic (6) Hypothyroidism Code(s): E03.9 - HYPOTHYROIDISM, UNSPECIFIED Status: Chronic (7) Multiple sclerosis Code(s): G35 - MULTIPLE SCLEROSIS Status: Chronic - Plan plan discussed w/ family, continue antibiotics Continue meropenem and vancomycin, follow blood and urine cultures. Consult nephrology. Pt vomited, c/o abdo pain earlier. CT abdo neg for bowel obstruction. Continue accuchecks and insulin sliding scale.
[2019-09-04] MEDS ORDERED: Acetaminophen 1,000 MG in Premix Bag 1 BAG IVPB SCH (18:30)
[2019-09-04] MEDS: Albuterol Sulfate 2.5 mg/3 ml Neb NEB SCH (20:14)
[2019-09-04] MEDS ORDERED: Fluticasone Propionate HFA 220 MCG AER INH SCH (21:00)
[2019-09-04 21:11] LABS: Vancomycin, Random 10.9 ug/mL (See Comment)
[2019-09-05] MEDS: Vancomycin HCl 750 MG in Sodium Chloride 0.9% 250 ML 250 ML IVPB SCH ×2 (00:06→23:40)
[2019-09-05] MEDS: Albuterol Sulfate 2.5 mg/3 ml Neb NEB SCH ×4 (00:57→19:30)
[2019-09-05] MEDS: Sodium Bicarbonate 75 MEQ in Sodium Chloride 0.45% 1,000 ML IV SCH (02:03)
[2019-09-05] MEDS: Levothyroxine Sodium 50 MCG TAB PO SCH (05:36)
[2019-09-05] MEDS: Acetaminophen 325 MG TAB PO PRN (06:08)
[2019-09-05 06:27] LABS: #Eosinphils 0.3 thou/uL (0.0-0.7); #Lymphocytes 1.1 thou/uL (1.20-3.40); #Monocytes 0.5 thou/uL (0.11-0.59); #Neutrophils 6.8 thou/uL (1.40-6.50); %Basophils 0.5 % (0.0-1.0); %Eosinophils 3.1 % (0.0-10.0); %Monocytes 6.2 % (0.0-10.0); %Neutrophils 78.1 % (42.0-75.0); Mean Corpuscular HGB CONC 32.7 g/dL (32.0-36.0); Mean Corpuscular Hemoglobin 28.2 pg (27.0-31.0); Mean Corpuscular Volume 86.1 fL (78.0-98.0); Mean Platelet Volume 8.2 fL (7.4-10.4); Platelet Count 236 thou/uL (130-400); RBC Distribution Width 12.4 % (11.5-14.5); Red Blood Cell (RBC) Count 3.55 mill/uL (4.20-5.40); White Blood Cell (WBC) Count 8.7 thou/uL (4.8-10.8)
[2019-09-05] MEDS: Ipratropium Bromide 2.5 ml Neb NEB SCH ×2 (06:35→19:30)
[2019-09-05] MEDS: Mometasone 100 MCG HFA INHALER INH SCH ×2 (06:38→19:48)
[2019-09-05 06:49] LABS: ALT (SGPT) 25 U/L (8-55); AST (SGOT) 36 U/L (5-34); Alkaline Phosphatase 92 U/L (40-110); Bilirubin, Direct 0.1 mg/dL (0.1-0.3); Bilirubin, Total 0.2 mg/dL (0.2-1.2); Protein, Total 5.9 g/dL (6.0-8.3)
[2019-09-05 07:01] LABS: Anion Gap 19 mmol/L (10-20); BUN (Urea Nitrogen) 27 mg/dL (9.8-20.1); CK (CPK) 107 U/L (29-168); Calc. Creatinine Clearance 46 mL/min (70-130); Calcium 7.8 mg/dL (7.8-10.44); Carbon Dioxide 19 mmol/L (23-31); Chloride 100 mmol/L (98-107); Estimated GFR-MDRD 56; Glucose 78 mg/dL (83-110); Potassium 4.2 mmol/L (3.5-5.1); Sodium 134 mmol/L (136-145)
[2019-09-05] MEDS: Meropenem 500 MG in Sodium Chloride 0.9% 100 ML IVPB SCH ×2 (08:41→17:53)
[2019-09-05] MEDS: Atorvastatin Calcium 40 MG TAB PO SCH (08:42)
[2019-09-05] MEDS: rOPINIRole HCl 2 MG TAB PO SCH ×3 (08:42→20:47)
[2019-09-05] MEDS: NIFEdipine XL 60 MG TAB PO SCH (08:42)
[2019-09-05] MEDS: Saccharomyces boulardii 250 MG CAP PO SCH (08:43)
[2019-09-05] MEDS: Ferrous Sulfate 325 MG TAB PO SCH ×2 (08:43→16:03)
[2019-09-05] MEDS: cloNIDine 0.1 MG TAB PO SCH ×2 (08:43→20:47)
[2019-09-05] MEDS: Baclofen 10 MG TAB PO SCH ×3 (08:43→20:48)
[2019-09-05] MEDS: Aspirin 81 mg Enteric Coated Tablet PO SCH (08:43)
[2019-09-05] MEDS: Heparin 5,000 UNITS/ML VIAL SC SCH ×3 (08:44→20:47)
[2019-09-05] MEDS: Citalopram 20 MG TAB PO SCH (08:44)
[2019-09-05] MEDS: Docusate 100 MG CAP PO SCH ×2 (08:44→20:48)
[2019-09-05] MEDS: Ketotifen Fumarate 0.025% Ophth Soln 5 ml Bottle EA EYE SCH ×2 (08:45→20:48)
[2019-09-05] MEDS: Metoprolol Tartrate 100 MG TAB PO SCH ×2 (08:46→20:47)
[2019-09-05] MEDS: Primidone 50 MG TAB PO SCH ×3 (10:13→20:47)
--- NOTE | 2019-09-05 14:18 | PRG ---
DATE OF SERVICE: 09/05/2019 SUBJECTIVE: A 73-year-old patient with multiple comorbidities including AMS, diabetes, peripheral artery disease, status post bilateral AKA, being followed up for acute kidney injury. The patient was admitted due to acute mental status change and was found to have urinary tract infection. More awake today and verbalizing some. No fever or worsening shortness of breath. OBJECTIVE: VITAL SIGNS: Temperature 98.1, pulse 99, respiratory rate 18, SpO2 of 91 on room air, and blood pressure is 188/82. GENERAL: An elderly female, in no obvious distress. Afebrile. Anicteric. Acyanotic. HEENT: Normocephalic and atraumatic. NG tube is in place. NECK: No JVD appreciated. CARDIOVASCULAR: Regular rhythm and rate with normal heart sounds 1 and 2. RESPIRATORY: Fair air entry bilaterally with few bibasilar crackles. No obvious rhonchi or use of accessory muscles appreciated. GI: Abdomen is full, mildly enlarged, soft, and nontender with normal bowel sounds. EXTREMITIES: Bilateral AKA noted. UROGENITAL: Gonsalez catheter is in place, draining some urine. 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 Verbalizing some. Cranial nerves 2 through 12 are grossly intact. LABORATORY DATA: CBC today showed WBC count of 8.7, hemoglobin of 10.0, MCV of 86.1, platelets of 236. CMP showed sodium 134, potassium 4.2, chloride 100, CO2 19, BUN 27, creatinine 0.97, glucose 78, calcium 7.8. Total bilirubin 0.2, AST 36, ALT 25, alkaline phosphatase 92, total protein 5.9, albumin 3.0. Urine electrolytes showed random total protein of 62 mg/dL. Urine creatinine of 48.0. Urine sodium 76 and urea nitrogen 248. Urine culture is growing E. coli and presumptive Pseudomonas. ASSESSMENT: 1. Acute kidney injury. This is due to hemodynamic factor related to poor oral intake and volume depletion. Creatinine is down to 0.95 from 2. 2. Metabolic acidosis due to acute kidney injury. Some component from GI. Pathology cannot be ruled out. 3. Hyperkalemia, resolved. 4. Volume status. The patient is close to euvolemic or mildly hypervolemic. 5. Hypertension. Blood pressure is inadequately controlled with systolic blood pressure above 180. PLAN: 1. We will deescalate IV fluid therapy as the patient is high risk for fluid overload. Chest examination showed bibasilar crackles. We would transition to oral hydration to avoid fluid overload. 2. We will discontinue sodium bicarb infusion. We will, however, start oral sodium bicarbonate given persistent of metabolic acidosis. 3. We will start the patient on nifedipine 60 mg with a view to titrating to get adequate blood pressure control. We will discontinue amlodipine. It is anticipated that discontinuation of IV fluid, blood pressure control will improve. 4. Antibiotic therapy as per Primary Attending. Job ID: [id number] MTDD
--- NOTE | 2019-09-05 14:49 | PQF ---
CLINICAL DOCUMENTATION IMPROVEMENT CLARIFICATION FORM: ICD-10 Updated PLEASE DO AN ADDENDUM TO THE PROGRESS NOTE WITH ANY DOCUMENTATION UPDATES OR ADDITIONS AND CARRY THROUGH TO DC SUMMARY. THANK YOU. DATE: 09/06/19 ATTN: DR. ALONZO Please exercise your independent, professional judgment in responding to the clarification form. Clinical indicators are provided on the bottom of this form for your review Please check appropriate box(es): [ XX ] Sepsis due to UTI due to chronic indwelling christie [ ] Sepsis not due to UTI [ ] Severe sepsis with acute organ dysfunction of: (Examples: respiratory failure, encephalopathy, acute kidney failure, other) [ ] Unable to determine [ ] Other In addition, please specify: Present on Admission (POA): [ XX ] Yes [ ] No [ ] Unable to determine For continuity of documentation, please document condition throughout progress notes and discharge summary. Thank You. CLINICAL INDICATORS - SIGNS / SYMPTOMS / LABS / RESULTS AND LOCATION IN MR ER NOTE 09/03: "SEPSIS" 09/03 WBC: 19.0 09/03 LACTIC ACID: 2.6 RISKS: H/O RECURRENT URINARY TRACT INFECTIONS (H&P 09/03) H/O CHRONIC INDWELLING CHRISTIE CATHETER (H&P 09/03) TREATMENT: IV VANCOMYCIN (ER-PRESENT) IV ROCEPHIN (ER) IV MERREM (09/04-09/05) BLOOD AND URINE CULTURES (09/03) (This form is maintained as a part of the permanent medical record) 2014 [employer], [employer]. All Rights Reserved [email or web address] Office: [phone] [facility]
--- NOTE | 2019-09-05 17:55 | PDOC.HOSPP ---
- Subjective Encounter Date: 09/05/19 Encounter Time: 09:00 Subjective: Pt seen for followup re: UTI. More alert, answering some questions but not reliably, could not complete ROS. - Objective Vital Signs & Weight: Vital Signs (12 hours) Temp Pulse Resp BP BP Pulse Ox 09/05/19 16:00 98.6 F 84 20 164/62 H 92 L 09/05/19 13:13 70 12 93 L 09/05/19 12:06 97.9 F 99 18 168/69 H 91 L 09/05/19 08:43 170/66 H 09/05/19 08:42 99 09/05/19 07:49 98.1 F 99 18 170/66 H 90 L 09/05/19 06:35 71 14 91 L Weight Weight 128 lb 8.472 oz I&O: 09/04/19 09/05/19 09/06/19 06:59 06:59 06:59 Intake Total 620 1300 Output Total 350 3050 Balance 270 -1750 Result Diagrams: 09/05/19 06:13 09/05/19 06:13 Additional Labs: Labs and MARs reviewed by nv Hospitalist ROS - Medication Medications: Active Medications Generic Name Dose Route Start Last Admin Trade Name Freq PRN Reason Stop Dose Admin Acetaminophen 650 mg 09/03/19 20:11 09/05/19 06:08 Tylenol PO 650 mg Q4H PRN Administration Headache/Fever/Mild Pain (1-3) Albuterol Sulfate 2.5 mg 09/04/19 19:00 09/05/19 13:13 Ventolin NEB 2.5 mg [id number] TARAN Administration Aspirin 81 mg 09/04/19 09:00 09/05/19 08:43 Ecotrin PO 81 mg DAILY TARAN Administration Atorvastatin Calcium 40 mg 09/04/19 09:00 09/05/19 08:42 Lipitor PO 40 mg DAILY TARAN Administration Baclofen 10 mg 09/03/19 21:00 09/05/19 16:02 Lioresal PO 10 mg TID TARAN Administration Citalopram Hydrobromide 20 mg 09/04/19 09:00 09/05/19 08:44 Celexa PO 20 mg DAILY TARAN Administration Clonidine 0.1 mg 09/03/19 21:00 09/05/19 08:43 Catapres PO 0.1 mg BID TARAN Administration Docusate Sodium 100 mg 10/22/19 21:00 09/05/19 08:44 Colace PO Not Given BID TARAN Ferrous Sulfate 325 mg 09/04/19 08:00 09/05/19 16:03 Feosol PO 325 mg BID-WM TARAN Administration Haloperidol Lactate 5 mg 09/04/19 12:20 09/04/19 12:30 Haldol IM 5 mg Q8H PRN Administration Agitation Heparin Sodium (Porcine) 5,000 units 09/03/19 21:00 09/05/19 16:02 Heparin SC 5,000 units TID TARAN Administration Vancomycin HCl 750 mg/ Sodium 250 mls @ 250 mls/hr 09/04/19 23:59 09/05/19 00 :06 Chloride IVPB 250 mls 2359 TARAN Administration Ipratropium [place] 2.5 ml 09/05/19 06:30 09/05/19 06:35 Atrovent NEB 2.5 ml BID-RT TARAN Administration Isosorbide Mononitrate 60 mg 09/04/19 09:00 09/05/19 08:43 Imdur PO 60 mg DAILY TARAN Administration Ketotifen Fumarate 1 drop 09/04/19 09:00 09/05/19 08:45 Zaditor 0.025% Ophth Soln EA EYE 1 drop BID TARAN Administration Levothyroxine Sodium 50 mcg 09/04/19 06:00 09/05/19 05:36 Synthroid PO Not Given 0600 [facility] Metoprolol Tartrate 100 mg 09/03/19 21:00 09/05/19 08:46 Lopressor PO 100 mg BID TARAN Administration Mometasone Furoate 1 puff 09/05/19 06:30 09/05/19 06:38 Asmanex Hfa 100 Mcg INH 1 puff BID-RT TARAN Administration Nifedipine 60 mg 09/05/19 09:00 09/05/19 08:42 Procardia Xl PO 60 mg DAILY TARAN Administration Primidone 100 mg 09/03/19 21:00 09/05/19 16:02 Mysoline PO 100 mg TID TARAN Administration Ropinirole HCl 2 mg 09/03/19 21:00 09/05/19 16:03 Requip PO 2 mg TID TARAN Administration Saccharomyces Boulardii 250 mg 09/04/19 09:00 09/05/19 08:43 Florastor PO 250 mg DAILY TARAN Administration Sodium Chloride 10 ml 09/03/19 21:00 09/05/19 08:47 Flush - Normal Saline IVF Not Given Q12HR TARAN - Exam General Appearance: NAD Eye: anicteric sclera Neck: supple Heart: RRR, no rubs Respiratory: CTAB Gastrointestinal: soft, non-tender Extremities - other findings: Alexander AKA Musculoskeletal: no muscle wasting Psychiatric: normal affect Hosp A/P (1) UTI (urinary tract infection) Status: Acute (2) Diabetes type 2, controlled Code(s): E11.9 - TYPE 2 DIABETES MELLITUS WITHOUT COMPLICATIONS Status: Chronic (3) Hypertension Code(s): I10 - ESSENTIAL (PRIMARY) HYPERTENSION Status: Chronic (4) Hypothyroidism Code(s): E03.9 - HYPOTHYROIDISM, UNSPECIFIED Status: Chronic (5) Multiple sclerosis Code(s): G35 - MULTIPLE SCLEROSIS Status: Chronic (6) Severe sepsis with acute organ dysfunction Code(s): A41.9 - SEPSIS, UNSPECIFIED ORGANISM; R65.20 - SEVERE SEPSIS WITHOUT SEPTIC SHOCK Status: Resolved Plan: acute kidney injury, now resolved, present on admission. (7) TRI (acute kidney injury) Code(s): N17.9 - ACUTE KIDNEY FAILURE, UNSPECIFIED Status: Resolved - Plan plan discussed w/ family, continue antibiotics Continue meropenem and vancomycin, urine culture growing E. coli and presumptive Pseudomonas. TRI resolved. Resume metformin and lisinopril. Accuchecks and insulin sliding scale. Swallow eval, dc NG tube if pt can swallow medications. Family updated by bedside.
[2019-09-05] MEDS ORDERED: HumaLOG 300 UNITS/3 ML VIAL SC PRN (18:01)
[2019-09-05] MEDS ORDERED: Dextrose 50% Abboject 50 ML SYRINGE SLOW IVP PRN (18:01)
[2019-09-05] MEDS ORDERED: Dextrose 5% in Water 1,000 ML IV PRN (18:01)
[2019-09-05] MEDS: Sodium Bicarbonate Tab 325 MG TAB PO SCH (20:47)
[2019-09-05] MEDS ORDERED: Vancomycin HCl 750 MG in Sodium Chloride 0.9% 250 ML 250 ML IVPB SCH (22:00)
[2019-09-05 23:30] LABS: Vancomycin, Trough 12.3 ug/mL
[2019-09-06] MEDS: Albuterol Sulfate 2.5 mg/3 ml Neb NEB SCH ×4 (00:13→19:21)
[2019-09-06] MEDS: Meropenem 500 MG in Sodium Chloride 0.9% 100 ML IVPB SCH ×3 (01:33→18:29)
[2019-09-06] MEDS: Levothyroxine Sodium 50 MCG TAB PO SCH (05:14)
[2019-09-06] MEDS: Ipratropium Bromide 2.5 ml Neb NEB SCH ×2 (07:14→19:18)
[2019-09-06] MEDS: Mometasone 100 MCG HFA INHALER INH SCH ×2 (07:21→19:21)
[2019-09-06] MEDS: Primidone 50 MG TAB PO SCH ×3 (08:41→21:04)
[2019-09-06] MEDS: Sodium Bicarbonate Tab 325 MG TAB PO SCH ×2 (08:41→20:59)
[2019-09-06] MEDS: Baclofen 10 MG TAB PO SCH ×3 (08:41→20:59)
[2019-09-06] MEDS: NIFEdipine XL 60 MG TAB PO SCH (08:41)
[2019-09-06] MEDS: Saccharomyces boulardii 250 MG CAP PO SCH (08:42)
[2019-09-06] MEDS: metFORMIN 500 MG TAB PO SCH ×2 (08:42→16:57)
[2019-09-06] MEDS: Docusate 100 MG CAP PO SCH ×3 (08:42→21:03)
[2019-09-06] MEDS: Aspirin 81 mg Enteric Coated Tablet PO SCH (08:42)
[2019-09-06] MEDS: Lisinopril 20 MG TAB PO SCH (08:42)
[2019-09-06] MEDS: Atorvastatin Calcium 40 MG TAB PO SCH (08:42)
[2019-09-06] MEDS: cloNIDine 0.1 MG TAB PO SCH ×2 (08:42→20:59)
[2019-09-06] MEDS: Citalopram 20 MG TAB PO SCH (08:43)
[2019-09-06] MEDS: Ferrous Sulfate 325 MG TAB PO SCH ×2 (08:43→16:57)
[2019-09-06] MEDS: Metoprolol Tartrate 100 MG TAB PO SCH ×2 (08:43→20:59)
[2019-09-06] MEDS: Heparin 5,000 UNITS/ML VIAL SC SCH ×3 (08:43→21:00)
[2019-09-06] MEDS: Acetaminophen 325 MG TAB PO PRN ×3 (08:53→21:03)
[2019-09-06] MEDS: Ketotifen Fumarate 0.025% Ophth Soln 5 ml Bottle EA EYE SCH ×2 (09:18→21:00)
[2019-09-06 10:38] LABS: Albumin 2.9 g/dL (3.4-4.8); Anion Gap 18 mmol/L (10-20); BUN (Urea Nitrogen) 11 mg/dL (9.8-20.1); BUN/Creatinine Ratio 16.18; Calc. Creatinine Clearance 66 mL/min (70-130); Calcium 8.1 mg/dL (7.8-10.44); Carbon Dioxide 20 mmol/L (23-31); Chloride 105 mmol/L (98-107); Estimated GFR-MDRD 84; Glucose 122 mg/dL (83-110); Potassium 3.3 mmol/L (3.5-5.1); Sodium 140 mmol/L (136-145)
[2019-09-06] MEDS: rOPINIRole HCl 2 MG TAB PO SCH ×3 (11:04→21:03)
[2019-09-06] MEDS ORDERED: NIFEdipine XL 90 MG TAB PO SCH (12:00)
[2019-09-06] MEDS ORDERED: NIFEdipine XL 30 MG TAB PO SCH (13:15)
[2019-09-06] MEDS ORDERED: Potassium Phosphate 15 MMOL in Sodium Chloride 0.9% 250 ML 250 ML IVPB SCH (13:30)
--- NOTE | 2019-09-06 13:33 | PRG ---
DATE OF SERVICE: 09/06/2019 SERVICE: Nephrology. SUBJECTIVE: A 73-year-old female with multiple comorbidities including AMS, diabetes, hypertension, who has been followed up for acute kidney injury. Mental status is better, but the patient managed to say a few words and obeyed few commands. Oral intake is still poor. However, there is no vomiting or diarrhea. PHYSICAL EXAMINATION: VITAL SIGNS: Temperature 98.2, pulse 89, respiratory rate 20, SpO2 of 95% on room air, and blood pressure is 196/71. GENERAL: Chronically ill-looking elderly in no obvious distress. Afebrile. Anicteric. Acyanotic. HEENT: Normocephalic, atraumatic. CARDIOVASCULAR: Regular rhythm and rate. RESPIRATORY: Fair air entry bilaterally with some transmitted breath sounds. GI: Full, soft, nondistended with normal bowel sounds. UROGENITAL: Gonsalez catheter is in place draining some urine. EXTREMITIES: Bilateral AKA noted. FIELD OPERATOR: Drowsy. Answers to call. Obeys few commands. DIAGNOSTIC DATA: Renal function panel showed sodium 140, potassium 3.3, chloride 105, CO2 of 20, anion gap of 18, creatinine 0.68, BUN 11, glucose 122, calcium 8.1, phosphorus 2.0, albumin 2.9. ASSESSMENT: 1. Acute kidney injury: This is due to hemodynamic factors related to poor oral intake and increased gastrointestinal losses and volume depletion. Creatinine is back to baseline. Currently 0.68 from peak level of 2.0. 2. Uncontrolled hypertension. 3. Metabolic acidosis, improved. 4. Hypokalemia. 5. Hypophosphatemia. PLAN: 1. Increase nifedipine to 90 mg p.o. daily. 2. Continue lisinopril, beta yulia, and clonidine. Nifedipine can be increased to 120 mg daily and patient also has room for increment in the clonidine dose. We will also replete serum potassium and phosphorus with potassium phosphate. We will defer further blood pressure management to primary attending. Since renal function has resolved and there is no major electrolyte derangement, Nephrology will sign off at this time. Many thanks for involving us in the care of this patient. Call for any clarification or questions. Job ID: [id number]
[2019-09-06] MEDS: hydrALAZINE 20 MG/ML VIAL SLOW IVP PRN (16:06)
[2019-09-06] MEDS: Haloperidol Lactate 5 MG/ML VIAL IM PRN (17:14)
--- NOTE | 2019-09-06 17:55 | PDOC.HOSPP ---
- Subjective Subjective: Seen and examined. Patient unable to perform review of systems. Does open eyes and minimally interactive, says a few words. Follows simple commands at times. Very weak and tired. Not eating much. Family at bedside able to aid in history. Patient with loose stool per RN. - Objective Vital Signs & Weight: Vital Signs (12 hours) Temp Pulse Resp BP Pulse Ox 09/06/19 17:25 96.6 F L 63 16 165/61 H 94 L 09/06/19 15:50 176/59 H 09/06/19 12:46 68 16 09/06/19 11:40 98.2 F 66 16 176/68 H 95 09/06/19 11:00 170/68 H 09/06/19 08:55 95 09/06/19 07:35 98.2 F 89 20 196/71 H 95 09/06/19 07:21 89 16 09/06/19 07:15 92 L 09/06/19 07:14 86 16 Weight Admit Weight 128 lb 8.472 oz Weight 128 lb 8.472 oz I&O: 09/05/19 09/06/19 09/07/19 06:59 06:59 06:59 Intake Total 1300 200 995 Output Total 3050 2450 550 Balance -1750 -2250 445 Result Diagrams: 09/05/19 06:13 09/06/19 10:05 Additional Labs: Accuchecks 09/06/19 09/06/19 09/06/19 16:28 11:41 04:19 POC Glucose 110 113 H 110 09/05/19 21:21 POC Glucose 122 H Radiology Reviewed by me: Yes (CT abd/ pelvis) Hospitalist ROS - Review of Systems All other systems reviewed; all pertinent +/- noted in HPI/Subj - Medication Medications: Active Medications Generic Name Dose Route Start Last Admin Trade Name Freq PRN Reason Stop Dose Admin Acetaminophen 650 mg 09/03/19 20:11 09/06/19 15:33 Tylenol PO 650 mg Q4H PRN Administration Headache/Fever/Mild Pain (1-3) Albuterol Sulfate 2.5 mg 09/04/19 19:00 09/06/19 12:46 Ventolin NEB 2.5 mg [id number] TARAN Administration Aspirin 81 mg 09/04/19 09:00 09/06/19 08:42 Ecotrin PO 81 mg DAILY TARAN Administration Atorvastatin Calcium 40 mg 09/04/19 09:00 09/06/19 08:42 Lipitor PO 40 mg DAILY TARAN Administration Baclofen 10 mg 09/03/19 21:00 09/06/19 15:34 Lioresal PO 10 mg TID TARAN Administration Citalopram Hydrobromide 20 mg 09/04/19 09:00 09/06/19 08:43 Celexa PO 20 mg DAILY TARAN Administration Clonidine 0.1 mg 09/03/19 21:00 09/06/19 08:42 Catapres PO 0.1 mg BID TARAN Administration Docusate Sodium 100 mg 09/03/19 21:00 09/06/19 16:50 Colace PO Not Given BID TARAN Ferrous Sulfate 325 mg 09/04/19 08:00 09/06/19 16:57 Feosol PO 325 mg BID-WM TARAN Administration Haloperidol Lactate 5 mg 09/04/19 12:20 09/06/19 17:14 Haldol IM 5 mg Q8H PRN Administration Agitation Heparin Sodium (Porcine) 5,000 units 09/03/19 21:00 09/06/19 15:34 Heparin SC 5,000 units TID TARAN Administration Hydralazine HCl 10 mg 09/05/19 06:31 09/06/19 16:06 Apresoline SLOW IVP 10 mg Q2H PRN Administration Hypertension Meropenem 500 mg/ Sodium 100 mls @ 200 mls/hr 09/05/19 18:00 09/06/19 10:34 Chloride IVPB 100 mls 0200,1000,1800 TARAN Administration Potassium Phosphate 15 mmol/ 255 mls @ 62.5 mls/hr 09/06/19 13:30 09/06/19 14 :17 Sodium Chloride IVPB 09/06/19 19:00 255 mls NOW TARAN Administration Ipratropium [place] 2.5 ml 09/05/19 06:30 09/06/19 07:14 Atrovent NEB 2.5 ml BID-RT TARAN Administration Isosorbide Mononitrate 60 mg 09/04/19 09:00 09/06/19 08:42 Imdur PO 60 mg DAILY TARAN Administration Ketotifen Fumarate 1 drop 09/04/19 09:00 09/06/19 09:18 Zaditor 0.025% Ophth Soln EA EYE 1 drop BID TARAN Administration Levothyroxine Sodium 50 mcg 09/04/19 06:00 09/06/19 05:14 Synthroid PO 50 mcg 0600 TARAN Administration Lisinopril 40 mg 09/06/19 09:00 09/06/19 08:42 Zestril PO 40 mg DAILY TARAN Administration Metformin HCl 500 mg 09/06/19 08:00 09/06/19 16:57 Glucophage PO 500 mg BID-WM TARAN Administration Metoprolol Tartrate 100 mg 09/03/19 21:00 09/06/19 08:43 Lopressor PO 100 mg BID TARAN Administration Mometasone Furoate 1 puff 09/05/19 06:30 09/06/19 07:21 Asmanex Hfa 100 Mcg INH 1 puff BID-RT TARAN Administration Primidone 100 mg 09/03/19 21:00 09/06/19 15:33 Mysoline PO 100 mg TID TARAN Administration Ropinirole HCl 2 mg 09/03/19 21:00 09/06/19 16:05 Requip PO 2 mg TID TARAN Administration Saccharomyces Boulardii 250 mg 09/04/19 09:00 09/06/19 08:42 Florastor PO 250 mg DAILY TARAN Administration Sodium Bicarbonate 650 mg 09/05/19 21:00 09/06/19 08:41 Bicarbonate, Sodium PO 650 mg BID TARAN Administration Sodium Chloride 10 ml 09/03/19 21:00 09/06/19 08:43 Flush - Normal Saline IVF 10 ml Q12HR TARAN Administration - Exam General Appearance: NAD Eye: anicteric sclera ENT: normocephalic atraumatic, moist mucosa Neck: supple, symmetric, no lymphadenopathy Heart: no murmur, no gallops, no rubs Respiratory: CTAB, no wheezes, no rales Gastrointestinal: soft, non-tender, no guarding, no rigidity Extremities: no edema Skin: no lesions, no rashes Neurological: cranial nerve grossly intact, no focal deficits Musculoskeletal: generalized weakness Musculoskeletal - other findings: Bilateral AKA Psychiatric: somnolent Hosp A/P (1) Severe sepsis Code(s): A41.9 - SEPSIS, UNSPECIFIED ORGANISM; R65.20 - SEVERE SEPSIS WITHOUT SEPTIC SHOCK Status: Acute (2) UTI (urinary tract infection) Status: Acute (3) TRI (acute kidney injury) Code(s): N17.9 - ACUTE KIDNEY FAILURE, UNSPECIFIED Status: Resolved (4) Severe sepsis with acute organ dysfunction Code(s): A41.9 - SEPSIS, UNSPECIFIED ORGANISM; R65.20 - SEVERE SEPSIS WITHOUT SEPTIC SHOCK Status: Resolved (5) Acute on chronic diastolic ACC/AHA stage C congestive heart failure Code(s): I50.33 - ACUTE ON CHRONIC DIASTOLIC (CONGESTIVE) HEART FAILURE Status : Acute (6) Sepsis with acute organ dysfunction Code(s): A41.9 - SEPSIS, UNSPECIFIED ORGANISM; R65.20 - SEVERE SEPSIS WITHOUT SEPTIC SHOCK Status: Acute (7) Diabetes type 2, controlled Code(s): E11.9 - TYPE 2 DIABETES MELLITUS WITHOUT COMPLICATIONS Status: Chronic (8) Hypertension Code(s): I10 - ESSENTIAL (PRIMARY) HYPERTENSION Status: Chronic (9) Hypothyroidism Code(s): E03.9 - HYPOTHYROIDISM, UNSPECIFIED Status: Chronic (10) Multiple sclerosis Code(s): G35 - MULTIPLE SCLEROSIS Status: Chronic (11) Parkinson disease Code(s): G20 - PARKINSON'S DISEASE Status: Chronic (12) S/P AKA (above knee amputation) bilateral Code(s): Z89.611 - ACQUIRED ABSENCE OF RIGHT LEG ABOVE KNEE; Z89.612 - ACQUIRED ABSENCE OF LEFT LEG ABOVE KNEE Status: Chronic - Plan Plan: nephrology consultation, recommendations appreciated infectious disease consultation was requested however unavailable until next patient with extended spectrum resistant E. coli and pseudomonas UTI, chronic Gonsalez catheter for 15+ years patient sensitivity is noted for sensitive to meropenem will place PICC line will plan for Invanz daily infusion on discharge C. diff ordered for loose stool adjust blood pressure medication continue other home medications is able signed DNR paperwork for out of the hospital arrest long-term prognosis is poor
[2019-09-07] MEDS: Meropenem 500 MG in Sodium Chloride 0.9% 100 ML IVPB SCH ×3 (01:01→17:48)
[2019-09-07] MEDS: hydrALAZINE 20 MG/ML VIAL SLOW IVP PRN ×2 (01:01→09:06)
[2019-09-07] MEDS: Albuterol Sulfate 2.5 mg/3 ml Neb NEB SCH ×4 (02:47→19:00)
[2019-09-07 05:48] LABS: Anion Gap 15 mmol/L (10-20); BUN (Urea Nitrogen) 8 mg/dL (9.8-20.1); BUN/Creatinine Ratio 13.11; Calc. Creatinine Clearance 73 mL/min (70-130); Calcium 8.2 mg/dL (7.8-10.44); Carbon Dioxide 22 mmol/L (23-31); Chloride 105 mmol/L (98-107); Estimated GFR-MDRD Greater than 90; Glucose 101 mg/dL (83-110); Phosphorus 2.3 mg/dL (2.3-4.7); Sodium 139 mmol/L (136-145)
[2019-09-07] MEDS: Levothyroxine Sodium 50 MCG TAB PO SCH (06:26)
[2019-09-07] MEDS: Acetaminophen 325 MG TAB PO PRN ×2 (06:27→20:51)
[2019-09-07] MEDS: Metoprolol Tartrate 100 MG TAB PO SCH (06:27)
[2019-09-07] MEDS: Ipratropium Bromide 2.5 ml Neb NEB SCH ×2 (06:35→19:00)
[2019-09-07] MEDS: Mometasone 100 MCG HFA INHALER INH SCH ×2 (06:48→19:13)
[2019-09-07] MEDS: Sodium Bicarbonate Tab 325 MG TAB PO SCH ×2 (08:42→20:51)
[2019-09-07] MEDS: Atorvastatin Calcium 40 MG TAB PO SCH (08:43)
[2019-09-07] MEDS: metFORMIN 500 MG TAB PO SCH ×2 (08:43→15:17)
[2019-09-07] MEDS: Lisinopril 20 MG TAB PO SCH (08:43)
[2019-09-07] MEDS: Baclofen 10 MG TAB PO SCH ×3 (08:43→20:50)
[2019-09-07] MEDS: Saccharomyces boulardii 250 MG CAP PO SCH (08:43)
[2019-09-07] MEDS: Aspirin 81 mg Enteric Coated Tablet PO SCH (08:43)
[2019-09-07] MEDS: cloNIDine 0.1 MG TAB PO SCH (08:44)
[2019-09-07] MEDS: Heparin 5,000 UNITS/ML VIAL SC SCH ×3 (08:45→20:51)
[2019-09-07] MEDS: Citalopram 20 MG TAB PO SCH (08:45)
[2019-09-07] MEDS: Docusate 100 MG CAP PO SCH ×2 (08:45→20:50)
[2019-09-07] MEDS: Ferrous Sulfate 325 MG TAB PO SCH ×2 (08:45→15:17)
[2019-09-07] MEDS: rOPINIRole HCl 2 MG TAB PO SCH ×3 (08:45→20:50)
[2019-09-07] MEDS: Glatiramer Acetate [Copaxone] 20 MG SC SCH (08:46)
[2019-09-07] MEDS: Primidone 50 MG TAB PO SCH ×3 (08:46→20:51)
[2019-09-07] MEDS: Ketotifen Fumarate 0.025% Ophth Soln 5 ml Bottle EA EYE SCH ×2 (08:47→20:49)
[2019-09-07] MEDS ORDERED: cloNIDine 0.2mg/24 Hour PATCH TD SCH (09:00)
[2019-09-07] MEDS ORDERED: NIFEdipine XL 90 MG TAB PO SCH (09:00)
[2019-09-07] MEDS ORDERED: Carvedilol 6.25 MG TAB PO SCH ×2 (10:00→17:00)
[2019-09-07] MEDS: Haloperidol Lactate 5 MG/ML VIAL IM PRN ×2 (11:21→20:52)
--- NOTE | 2019-09-07 13:31 | PDOC.HOSPP ---
- Subjective Subjective: Seen and examined. More alert and awake. Answering questions appropriately at times. She is more her baseline per family at bedside. Patient with agitation does not like laying on one side of her body at a time to avoid pressure ulcers. - Objective Vital Signs & Weight: Vital Signs (12 hours) Temp Pulse Resp BP BP Pulse Ox 09/07/19 10:55 98.0 F 86 18 145/48 H 94 L 09/07/19 10:20 194/66 H 09/07/19 09:06 194/66 H 09/07/19 08:44 194/66 H 09/07/19 08:43 68 194/66 H 09/07/19 07:56 98.0 F 68 18 194/66 H 96 09/07/19 06:48 86 16 09/07/19 06:36 95 09/07/19 06:35 82 16 09/07/19 06:27 98.0 F 82 18 193/77 H 95 Weight Admit Weight 128 lb 8.472 oz Weight 128 lb 8.472 oz I&O: 09/06/19 09/07/19 09/08/19 06:59 06:59 06:59 Intake Total 200 1115 500 Output Total 2450 1550 Balance -2250 -435 500 Result Diagrams: 09/05/19 06:13 09/07/19 05:11 Additional Labs: Accuchecks 09/07/19 09/07/19 09/06/19 10:55 06:12 19:50 POC Glucose 116 H 96 102 09/06/19 16:28 POC Glucose 110 Radiology Reviewed by me: Yes (CT brain) Hospitalist ROS - Review of Systems All other systems reviewed; all pertinent +/- noted in HPI/Subj - Medication Medications: Active Medications Generic Name Dose Route Start Last Admin Trade Name Freq PRN Reason Stop Dose Admin Acetaminophen 650 mg 09/03/19 20:11 09/07/19 06:27 Tylenol PO 650 mg Q4H PRN Administration Headache/Fever/Mild Pain (1-3) Albuterol Sulfate 2.5 mg 09/04/19 19:00 09/07/19 06:35 Ventolin NEB 2.5 mg [id number] TARAN Administration Aspirin 81 mg 09/04/19 09:00 09/07/19 08:43 Ecotrin PO 81 mg DAILY TARAN Administration Atorvastatin Calcium 40 mg 09/04/19 09:00 09/07/19 08:43 Lipitor PO 40 mg DAILY TARAN Administration Baclofen 10 mg 09/03/19 21:00 09/07/19 08:43 Lioresal PO 10 mg TID TARAN Administration Citalopram Hydrobromide 20 mg 09/04/19 09:00 09/07/19 08:45 Celexa PO 20 mg DAILY TARAN Administration Clonidine 0.2 mg 09/07/19 09:00 09/07/19 10:20 [id number] TD 0.2 mg Q7DAYS TARAN Administration Docusate Sodium 100 mg 09/03/19 21:00 09/07/19 08:45 Colace PO 100 mg BID TARAN Administration Ferrous Sulfate 325 mg 09/04/19 08:00 09/07/19 08:45 Feosol PO 325 mg BID-WM TARAN Administration Haloperidol Lactate 5 mg 09/04/19 12:20 09/07/19 11:21 Haldol IM 5 mg Q8H PRN Administration Agitation Heparin Sodium (Porcine) 5,000 units 09/03/19 21:00 09/07/19 08:45 Heparin SC 5,000 units TID TARAN Administration Hydralazine HCl 10 mg 09/05/19 06:31 09/07/19 09:06 Apresoline SLOW IVP 10 mg Q2H PRN Administration Hypertension Meropenem 500 mg/ Sodium 100 mls @ 200 mls/hr 09/05/19 18:00 09/07/19 09:06 Chloride IVPB 100 mls 0200,1000,1800 TARAN Administration Ipratropium [place] 2.5 ml 09/05/19 06:30 09/07/19 06:35 Atrovent NEB 2.5 ml BID-RT TARAN Administration Isosorbide Mononitrate 60 mg 09/04/19 09:00 09/07/19 08:43 Imdur PO 60 mg DAILY TARAN Administration Ketotifen Fumarate 1 drop 09/04/19 09:00 09/07/19 08:47 Zaditor 0.025% Ophth Soln EA EYE 1 drop BID TARAN Administration Levothyroxine Sodium 50 mcg 09/04/19 06:00 09/07/19 06:26 Synthroid PO 50 mcg 0600 TARAN Administration Lisinopril 40 mg 09/06/19 09:00 09/07/19 08:43 Zestril PO 40 mg DAILY TARAN Administration Metformin HCl 500 mg 09/06/19 08:00 09/07/19 08:43 Glucophage PO 500 mg BID-WM TARAN Administration Mometasone Furoate 1 puff 09/05/19 06:30 09/07/19 06:48 Asmanex Hfa 100 Mcg INH 1 puff BID-RT TARAN Administration Nifedipine 90 mg 09/07/19 09:00 09/07/19 08:43 Procardia Xl PO 90 mg DAILY TARAN Administration Glatiramer Acetate [ 0 each 09/07/19 09:00 09/07/19 08:46 Copaxone] 20 Mg SC 20 each DAILY TARAN Administration Primidone 100 mg 09/03/19 21:00 09/07/19 08:46 Mysoline PO 100 mg TID TARAN Administration Ropinirole HCl 2 mg 09/03/19 21:00 09/07/19 08:45 Requip PO 2 mg TID TARAN Administration Saccharomyces Boulardii 250 mg 09/04/19 09:00 09/07/19 08:43 Florastor PO 250 mg DAILY TARAN Administration Sodium Bicarbonate 650 mg 09/05/19 21:00 09/07/19 08:42 Bicarbonate, Sodium PO 650 mg BID TARAN Administration Sodium Chloride 10 ml 09/03/19 21:00 09/07/19 08:47 Flush - Normal Saline IVF 10 ml Q12HR TARAN Administration - Exam General Appearance: NAD, awake alert Eye: PERRL, anicteric sclera ENT: normocephalic atraumatic, moist mucosa Neck: supple, symmetric, no lymphadenopathy Heart: no murmur, no gallops, no rubs Respiratory: CTAB, no wheezes Gastrointestinal: soft, non-tender, no guarding, no rigidity Extremities: no edema Skin: no lesions, no rashes Skin - other findings: Bilat stumps healed Neurological: cranial nerve grossly intact, no focal deficits Musculoskeletal: generalized weakness Psychiatric: oriented to person Hosp A/P (1) Severe sepsis Code(s): A41.9 - SEPSIS, UNSPECIFIED ORGANISM; R65.20 - SEVERE SEPSIS WITHOUT SEPTIC SHOCK Status: Acute (2) UTI (urinary tract infection) Status: Acute (3) TRI (acute kidney injury) Code(s): N17.9 - ACUTE KIDNEY FAILURE, UNSPECIFIED Status: Resolved (4) Severe sepsis with acute organ dysfunction Code(s): A41.9 - SEPSIS, UNSPECIFIED ORGANISM; R65.20 - SEVERE SEPSIS WITHOUT SEPTIC SHOCK Status: Resolved (5) Acute on chronic diastolic ACC/AHA stage C congestive heart failure Code(s): I50.33 - ACUTE ON CHRONIC DIASTOLIC (CONGESTIVE) HEART FAILURE Status : Acute (6) Sepsis with acute organ dysfunction Code(s): A41.9 - SEPSIS, UNSPECIFIED ORGANISM; R65.20 - SEVERE SEPSIS WITHOUT SEPTIC SHOCK Status: Acute (7) Diabetes type 2, controlled Code(s): E11.9 - TYPE 2 DIABETES MELLITUS WITHOUT COMPLICATIONS Status: Chronic (8) Hypertension Code(s): I10 - ESSENTIAL (PRIMARY) HYPERTENSION Status: Chronic (9) Hypothyroidism Code(s): E03.9 - HYPOTHYROIDISM, UNSPECIFIED Status: Chronic (10) Multiple sclerosis Code(s): G35 - MULTIPLE SCLEROSIS Status: Chronic (11) Parkinson disease Code(s): G20 - PARKINSON'S DISEASE Status: Chronic (12) S/P AKA (above knee amputation) bilateral Code(s): Z89.611 - ACQUIRED ABSENCE OF RIGHT LEG ABOVE KNEE; Z89.612 - ACQUIRED ABSENCE OF LEFT LEG ABOVE KNEE Status: Chronic - Plan Plan: nephrology consultation, recommendations appreciated infectious disease consultation was requested however unavailable until next patient with extended spectrum resistant E. coli and pseudomonas UTI, chronic Gonsalez catheter for 15+ years patient sensitivity is noted for sensitive to meropenem will place PICC line will plan for Invanz daily infusion on discharge C. diff ordered for loose stool adjust blood pressure medication continue other home medications is able signed DNR paperwork for out of the hospital arrest Mood stabilizers as needed long-term prognosis is poor
[2019-09-07] MEDS: diphenhydrAMINE 25 MG CAP PO PRN (20:50)
[2019-09-08] MEDS: Albuterol Sulfate 2.5 mg/3 ml Neb NEB SCH ×4 (00:23→19:57)
[2019-09-08] MEDS: Meropenem 500 MG in Sodium Chloride 0.9% 100 ML IVPB SCH ×3 (01:02→17:06)
[2019-09-08] MEDS: hydrALAZINE 20 MG/ML VIAL SLOW IVP PRN ×3 (04:36→16:57)
[2019-09-08] MEDS: Levothyroxine Sodium 50 MCG TAB PO SCH (06:07)
[2019-09-08] MEDS: Ipratropium Bromide 2.5 ml Neb NEB SCH ×2 (07:39→19:59)
[2019-09-08] MEDS: Mometasone 100 MCG HFA INHALER INH SCH ×2 (07:40→19:57)
[2019-09-08] MEDS: Baclofen 10 MG TAB PO SCH ×3 (08:01→20:13)
[2019-09-08] MEDS: Primidone 50 MG TAB PO SCH ×3 (08:01→20:13)
[2019-09-08] MEDS: Sodium Bicarbonate Tab 325 MG TAB PO SCH ×2 (08:01→20:12)
[2019-09-08] MEDS: NIFEdipine XL 60 MG TAB PO SCH (08:01)
[2019-09-08] MEDS: metFORMIN 500 MG TAB PO SCH ×2 (08:02→16:49)
[2019-09-08] MEDS: Atorvastatin Calcium 40 MG TAB PO SCH (08:02)
[2019-09-08] MEDS: Lisinopril 20 MG TAB PO SCH (08:02)
[2019-09-08] MEDS: Ferrous Sulfate 325 MG TAB PO SCH ×2 (08:02→16:49)
[2019-09-08] MEDS: Aspirin 81 mg Enteric Coated Tablet PO SCH (08:02)
[2019-09-08] MEDS: Saccharomyces boulardii 250 MG CAP PO SCH (08:02)
[2019-09-08] MEDS: Docusate 100 MG CAP PO SCH ×2 (08:03→20:13)
[2019-09-08] MEDS: Citalopram 20 MG TAB PO SCH (08:03)
[2019-09-08] MEDS: Glatiramer Acetate [Copaxone] 20 MG SC SCH (08:03)
[2019-09-08] MEDS: Heparin 5,000 UNITS/ML VIAL SC SCH ×3 (08:03→20:13)
[2019-09-08] MEDS: Ketotifen Fumarate 0.025% Ophth Soln 5 ml Bottle EA EYE SCH ×2 (08:03→20:09)
[2019-09-08] MEDS: rOPINIRole HCl 2 MG TAB PO SCH ×3 (08:04→20:13)
[2019-09-08] MEDS: Labetalol 100 MG TAB PO SCH ×2 (08:22→20:12)
[2019-09-08 09:11] LABS: Albumin 3.3 g/dL (3.4-4.8); Anion Gap 21 mmol/L (10-20); BUN (Urea Nitrogen) 6 mg/dL (9.8-20.1); BUN/Creatinine Ratio 10.53; Calc. Creatinine Clearance 78 mL/min (70-130); Calcium 8.4 mg/dL (7.8-10.44); Carbon Dioxide 16 mmol/L (23-31); Chloride 104 mmol/L (98-107); Estimated GFR-MDRD Greater than 90; Glucose 102 mg/dL (83-110); Magnesium 1.3 mg/dL (1.6-2.6); Phosphorus 2.6 mg/dL (2.3-4.7); Sodium 138 mmol/L (136-145)
[2019-09-08 09:17] LABS: Potassium 2.9 mmol/L (3.5-5.1)
--- NOTE | 2019-09-08 09:22 | PRG ---
DATE OF SERVICE: 09/08/2019 SERVICE: Nephrology. SUBJECTIVE: A 73-year-old female with multiple sclerosis, peripheral artery disease, status post bilateral AKA, diabetes, and others, being followed up for acute kidney injury and hypertension. The patient is more awake and conversational. Denied any new problems. PHYSICAL EXAMINATION: VITAL SIGNS: Temperature 98.3, pulse 109, respiratory rate 20, SpO2 of 96% on room air, blood pressure is 201/75. GENERAL: Elderly female, in no obvious distress. Afebrile. Anicteric. Acyanotic. HEENT: Normocephalic, atraumatic. Oral mucosa is moist. CARDIOVASCULAR: Regular rhythm and rate, but tachycardic. RESPIRATORY: Fair air entry bilaterally, few transmitted breath sounds. No tachypnea or use of accessory muscles appreciated. GI: Full, soft, nontender, nondistended with normal bowel sounds. EXTREMITIES: Bilateral AKA noted. UROGENITAL: Gonsalez catheter is in place draining urine. ADOPTION COORDINATOR: Conscious, alert, oriented x3 with appropriate mental status. Cranial nerves 2 through 12 are grossly intact. DIAGNOSTIC DATA: Renal function panel on September 07 showed sodium 139, potassium 3.0, chloride 105, CO2 of 22, BUN 8, creatinine 0.61, calcium 8.2, phosphorus 2.3, albumin 3.0. ASSESSMENT AND PLAN: 1. Accelerated hypertension: There is a neurologic component given multiple sclerosis. We will increase nifedipine from 90 to 120. We will also start patient on labetalol 50 mg b.i.d. given tachycardia. We will continue all other medications including lisinopril and clonidine. 2. Acute kidney injury: Resolved. 3. Hypokalemia: Replete with potassium and get serum magnesium level. 4. Metabolic acidosis: Improved. 5. We will monitor BP closely and adjust treatment as needed. Job ID: [id number]
[2019-09-08] MEDS ORDERED: Loperamide HCl 2 MG CAP PO PRN (09:27)
[2019-09-08] MEDS: 1/2 NS w/KCL 20 mEq 1,000 ML IV SCH (09:53)
--- NOTE | 2019-09-08 15:53 | PDOC.HOSPP ---
- Subjective Subjective: Seen and examined. Continues to clinically improved. More alert and awake. Answering questions appropriately and even called to me by name unprompted the same. Still with diarrhea. Low potassium. Metabolic acidosis slightly worsening. To avoid dehydration I will restart low rate IV fluids. Potassium replacement. BP meds adjusted. - Objective Vital Signs & Weight: Vital Signs (12 hours) Temp Pulse Resp BP BP Pulse Ox 09/08/19 12:29 101 H 20 09/08/19 11:00 97.3 F L 101 H 18 132/56 L 93 L 09/08/19 08:22 109 H 09/08/19 08:05 109 H 09/08/19 08:02 201/75 H 09/08/19 08:01 109 H 09/08/19 08:00 96 09/08/19 07:39 98.3 F 109 H 20 201/75 H 96 09/08/19 06:02 170/66 H 09/08/19 04:36 83 09/08/19 04:00 97.3 F L 79 16 196/77 H 96 Weight Admit Weight 128 lb 8.472 oz Weight 128 lb 8.472 oz I&O: 09/07/19 09/08/19 09/09/19 06:59 06:59 06:59 Intake Total 1115 945 200 Output Total 1550 300 Balance -435 645 200 Result Diagrams: 09/05/19 06:13 09/08/19 08:27 Additional Labs: Accuchecks 09/08/19 09/07/19 09/07/19 11:27 19:25 17:01 POC Glucose 93 89 87 Hospitalist ROS - Review of Systems All other systems reviewed; all pertinent +/- noted in HPI/Subj - Medication Medications: Active Medications Generic Name Dose Route Start Last Admin Trade Name Freq PRN Reason Stop Dose Admin Acetaminophen 650 mg 09/03/19 20:11 09/07/19 20:51 Tylenol PO 650 mg Q4H PRN Administration Headache/Fever/Mild Pain (1-3) Albuterol Sulfate 2.5 mg 09/04/19 19:00 09/08/19 12:29 Ventolin NEB 2.5 mg [id number] TARAN Administration Aspirin 81 mg 09/04/19 09:00 09/08/19 08:02 Ecotrin PO 81 mg DAILY TARAN Administration Atorvastatin Calcium 40 mg 09/04/19 09:00 09/08/19 08:02 Lipitor PO 40 mg DAILY TARAN Administration Baclofen 10 mg 09/03/19 21:00 09/08/19 15:22 Lioresal PO 10 mg TID TARAN Administration Citalopram Hydrobromide 20 mg 09/04/19 09:00 09/08/19 08:03 Celexa PO 20 mg DAILY TARAN Administration Clonidine 0.2 mg 09/07/19 09:00 09/07/19 10:20 Vikidqni-Goy-8 TD 0.2 mg Q7DAYS TARAN Administration Diphenhydramine HCl 25 mg 09/07/19 13:34 09/07/19 20:50 Benadryl PO 25 mg Q6H PRN Administration Itching & Insomnia Docusate Sodium 100 mg 09/03/19 21:00 09/08/19 08:03 Colace PO 100 mg BID TARAN Administration Ferrous Sulfate 325 mg 09/04/19 08:00 09/08/19 08:02 Feosol PO 325 mg BID-WM TARAN Administration Haloperidol Lactate 5 mg 09/04/19 12:20 09/07/19 20:52 Haldol IM 5 mg Q8H PRN Administration Agitation Heparin Sodium (Porcine) 5,000 units 09/03/19 21:00 09/08/19 15:22 Heparin SC 5,000 units TID TARAN Administration Hydralazine HCl 10 mg 09/05/19 06:31 09/08/19 08:05 Apresoline SLOW IVP 10 mg Q2H PRN Administration Hypertension Meropenem 500 mg/ Sodium 100 mls @ 200 mls/hr 09/05/19 18:00 09/08/19 08:23 Chloride IVPB 100 mls 0200,1000,1800 TARAN Administration Potassium Chloride/Sodium Chloride 1,000 mls @ 50 mls/hr 09/08/19 09:30 09/08 09:53 1/2 Ns W/Kcl 20 Meq IV 1,000 mls .Q20H TARAN Administration Ipratropium [place] 2.5 ml 09/05/19 06:30 09/08/19 07:39 Atrovent NEB 2.5 ml BID-RT TARAN Administration Isosorbide Mononitrate 60 mg 09/04/19 09:00 09/08/19 08:02 Imdur PO 60 mg DAILY TARAN Administration Ketotifen Fumarate 1 drop 09/04/19 09:00 09/08/19 08:03 Zaditor 0.025% Ophth Soln EA EYE 1 drop BID TARAN Administration Labetalol HCl 50 mg 09/08/19 09:00 09/08/19 08:22 Normodyne PO 50 mg BID TARAN Administration Levothyroxine Sodium 50 mcg 09/04/19 06:00 09/08/19 06:07 Synthroid PO 50 mcg 0600 TARAN Administration Lisinopril 40 mg 09/06/19 09:00 09/08/19 08:02 Zestril PO 40 mg DAILY TARAN Administration Metformin HCl 500 mg 09/06/19 08:00 09/08/19 08:02 Glucophage PO 500 mg BID-WM TARAN Administration Mometasone Furoate 1 puff 09/05/19 06:30 09/08/19 07:40 Asmanex Hfa 100 Mcg INH 1 puff BID-RT TARAN Administration Nifedipine 120 mg 09/08/19 05:18 09/08/19 08:01 Procardia Xl PO 120 mg DAILY TARAN Administration Glatiramer Acetate [ 0 each 09/07/19 09:00 09/08/19 08:03 Copaxone] 20 Mg SC 20 each DAILY TARAN Administration Primidone 100 mg 09/03/19 21:00 09/08/19 15:22 Mysoline PO 100 mg TID TARAN Administration Ropinirole HCl 2 mg 09/03/19 21:00 09/08/19 15:22 Requip PO 2 mg TID TARAN Administration Saccharomyces Boulardii 250 mg 09/04/19 09:00 09/08/19 08:02 Florastor PO 250 mg DAILY TARAN Administration Sodium Bicarbonate 650 mg 09/05/19 21:00 09/08/19 08:01 Bicarbonate, Sodium PO 650 mg BID TARAN Administration Sodium Chloride 10 ml 09/03/19 21:00 09/08/19 08:04 Flush - Normal Saline IVF 10 ml Q12HR TARAN Administration - Exam General Appearance: NAD, awake alert Eye: PERRL, anicteric sclera ENT: normocephalic atraumatic, moist mucosa Neck: supple, no lymphadenopathy Heart: no murmur, no gallops, no rubs Respiratory: CTAB, no wheezes, no rales, no ronchi Gastrointestinal: soft, non-tender, non-distended, no guarding, no rigidity Extremities: no edema Skin: no lesions, no rashes Neurological: cranial nerve grossly intact, no focal deficits Musculoskeletal: generalized weakness Psychiatric: oriented to person, oriented to place, flat affect Hosp A/P (1) Severe sepsis Code(s): A41.9 - SEPSIS, UNSPECIFIED ORGANISM; R65.20 - SEVERE SEPSIS WITHOUT SEPTIC SHOCK Status: Acute (2) UTI (urinary tract infection) Status: Acute (3) TRI (acute kidney injury) Code(s): N17.9 - ACUTE KIDNEY FAILURE, UNSPECIFIED Status: Resolved (4) Severe sepsis with acute organ dysfunction Code(s): A41.9 - SEPSIS, UNSPECIFIED ORGANISM; R65.20 - SEVERE SEPSIS WITHOUT SEPTIC SHOCK Status: Resolved (5) Acute on chronic diastolic ACC/AHA stage C congestive heart failure Code(s): I50.33 - ACUTE ON CHRONIC DIASTOLIC (CONGESTIVE) HEART FAILURE Status : Acute (6) Sepsis with acute organ dysfunction Code(s): A41.9 - SEPSIS, UNSPECIFIED ORGANISM; R65.20 - SEVERE SEPSIS WITHOUT SEPTIC SHOCK Status: Acute (7) Diabetes type 2, controlled Code(s): E11.9 - TYPE 2 DIABETES MELLITUS WITHOUT COMPLICATIONS Status: Chronic (8) Hypertension Code(s): I10 - ESSENTIAL (PRIMARY) HYPERTENSION Status: Chronic (9) Hypothyroidism Code(s): E03.9 - HYPOTHYROIDISM, UNSPECIFIED Status: Chronic (10) Multiple sclerosis Code(s): G35 - MULTIPLE SCLEROSIS Status: Chronic (11) Parkinson disease Code(s): G20 - PARKINSON'S DISEASE Status: Chronic (12) S/P AKA (above knee amputation) bilateral Code(s): Z89.611 - ACQUIRED ABSENCE OF RIGHT LEG ABOVE KNEE; Z89.612 - ACQUIRED ABSENCE OF LEFT LEG ABOVE KNEE Status: Chronic - Plan Plan: nephrology consultation, recommendations appreciated infectious disease consultation was requested however unavailable until next patient with extended spectrum resistant E. coli and pseudomonas UTI, chronic Gonsalez catheter for 15+ years patient sensitivity is noted for sensitive to meropenem will place PICC line will plan for Invanz daily infusion on discharge C. diff ordered for loose stool adjust blood pressure medication continue other home medications is able signed DNR paperwork for out of the hospital arrest Mood stabilizers as needed IV fluids to avoid dehydration with persistent diarrhea C.diff negative long-term prognosis is poor
[2019-09-08] MEDS: Potassium Chloride 20 MEQ TAB PO SCH (16:49)
[2019-09-08] MEDS: Haloperidol Lactate 5 MG/ML VIAL IM PRN (20:10)
[2019-09-08] MEDS: diphenhydrAMINE 25 MG CAP PO PRN (20:12)
[2019-09-08] MEDS: Acetaminophen 325 MG TAB PO PRN (20:14)
[2019-09-09] MEDS: Meropenem 500 MG in Sodium Chloride 0.9% 100 ML IVPB SCH ×3 (01:05→17:35)
[2019-09-09] MEDS: Albuterol Sulfate 2.5 mg/3 ml Neb NEB SCH ×4 (01:54→18:46)
[2019-09-09] MEDS: 1/2 NS w/KCL 20 mEq 1,000 ML IV SCH (05:55)
[2019-09-09] MEDS: Labetalol 100 MG TAB PO SCH ×2 (05:55→21:36)
[2019-09-09] MEDS: Levothyroxine Sodium 50 MCG TAB PO SCH (05:55)
[2019-09-09] MEDS: Ipratropium Bromide 2.5 ml Neb NEB SCH ×2 (06:55→18:43)
[2019-09-09] MEDS: Mometasone 100 MCG HFA INHALER INH SCH ×2 (06:56→18:45)
[2019-09-09 08:11] LABS: INR-International Normal Ratio 1.4; Prothrombin Time 17.2 SEC (12.0-14.7)
[2019-09-09] MEDS: Lisinopril 20 MG TAB PO SCH (08:43)
[2019-09-09] MEDS: metFORMIN 500 MG TAB PO SCH ×2 (08:43→17:32)
[2019-09-09] MEDS: Potassium Chloride 20 MEQ TAB PO SCH (08:43)
[2019-09-09] MEDS: Docusate 100 MG CAP PO SCH ×2 (08:43→21:23)
[2019-09-09] MEDS: Primidone 50 MG TAB PO SCH ×3 (08:44→21:22)
[2019-09-09] MEDS: rOPINIRole HCl 2 MG TAB PO SCH ×3 (08:44→21:23)
[2019-09-09] MEDS: Ferrous Sulfate 325 MG TAB PO SCH ×2 (08:44→17:32)
[2019-09-09] MEDS: NIFEdipine XL 60 MG TAB PO SCH (08:45)
[2019-09-09] MEDS: Citalopram 20 MG TAB PO SCH (08:45)
[2019-09-09] MEDS: Aspirin 81 mg Enteric Coated Tablet PO SCH (08:45)
[2019-09-09] MEDS: Baclofen 10 MG TAB PO SCH ×3 (08:45→21:22)
[2019-09-09] MEDS: Saccharomyces boulardii 250 MG CAP PO SCH (08:45)
[2019-09-09] MEDS: Sodium Bicarbonate Tab 325 MG TAB PO SCH ×2 (08:45→21:22)
[2019-09-09] MEDS: Ketotifen Fumarate 0.025% Ophth Soln 5 ml Bottle EA EYE SCH ×2 (08:46→21:24)
[2019-09-09] MEDS: Atorvastatin Calcium 40 MG TAB PO SCH (08:46)
[2019-09-09] MEDS: Heparin 5,000 UNITS/ML VIAL SC SCH ×3 (09:09→21:25)
[2019-09-09] MEDS ORDERED: Labetalol 100 MG TAB PO SCH (10:30)
--- NOTE | 2019-09-09 10:42 | SPC ---
Sonographic guided left upper extremity PICC placement HISTORY: UTI. Need for long-term antibiotics. FINDINGS: After explaining the procedure and answering all questions, the left upper extremity was pr epped and draped in usual sterile fashion. Sterile technique, buffered local anesthesia, sonographic guidance, and a 22-gauge needle were used to carefully access the left brachial vein. Sta ndard technique was used to place the tip of a 5 [place] single lumen PICC so that the tip lies at the level of the cavoatrial junction. Catheter was flushed and secured externally. Patient tolerated the procedure well and was returned in unchanged condition. Fluoroscopy time 0 seconds. IMPRESSION: Left upper extremity PICC is ready for use.
[2019-09-09] MEDS ORDERED: Magnesium Sulfate 4 GM in Sodium Chloride 0.9% 250 ML 250 ML IVPB SCH (11:00)
--- NOTE | 2019-09-09 11:35 | PRG ---
DATE OF SERVICE: 09/09/2019 SERVICE: Nephrology. SUBJECTIVE: A 73-year-old female admitted due to acute mental status changes and found to have urinary tract infection. The patient has history of AMS, peripheral artery disease, and status post bilateral AKA. Renal function has improved. The patient, however, developed diarrhea as well as accelerated hypertension. Oral intake is improving, though suboptimal. OBJECTIVE: VITAL SIGNS: Temperature 98.7, pulse 94, respiratory rate 16, SpO2 of 97% on room air, and blood pressure is 209/98. GENERAL: Elderly female, in no obvious distress. Fatigued. HEENT: Normocephalic, atraumatic. NECK: Supple with no JVD. CARDIOVASCULAR: Regular rhythm and rate with normal heart sounds. RESPIRATORY: Good air entry bilaterally with few transmitted breath sounds. No respiratory distress. GI: Obese, soft, nontender, and nondistended with normal bowel sounds. UROGENITAL: Gonsalez catheter is in place. EXTREMITIES: Bilateral AKA noted. LABORATORY DATA: BMP is pending today. However, renal function panel yesterday showed potassium 2.9 and magnesium of 1.6. CO2 was down also to 16. Potassium is 2.9 and sodium is 138. Albumin is 3.3. ASSESSMENT: 1. Acute renal failure: Resolved. 2. Metabolic acidosis: Worse most likely due to gastrointestinal losses of bicarb in diarrhea. 3. Hypokalemia: Due to diarrheal losses. Received potassium chloride yesterday. 4. Hypomagnesemia with magnesium of 1.3. 5. Uncontrolled hypertension. 6. AMS. 7. Chronic debility. 8. Urinary tract infection on treatment. PLAN: 1. Get repeat BMP and replete potassium as indicated. 2. Replete serum magnesium with 4 g of magnesium sulfate. 3. Continue sodium bicarb orally. 4. Increase labetalol to 200 mg b.i.d. Continue nifedipine 120 as well as clonidine and lisinopril. We will monitor blood pressure and adjust dose as needed to get adequate BP control. Other treatment as per primary attending. Job ID: [id number]
[2019-09-09 12:21] LABS: Anion Gap 17 mmol/L (10-20); BUN (Urea Nitrogen) 5 mg/dL (9.8-20.1); Calc. Creatinine Clearance 80 mL/min (70-130); Calcium 8.1 mg/dL (7.8-10.44); Carbon Dioxide 19 mmol/L (23-31); Chloride 105 mmol/L (98-107); Estimated GFR-MDRD Greater than 90; Glucose 88 mg/dL (83-110); Potassium 4.1 mmol/L (3.5-5.1); Sodium 137 mmol/L (136-145)
[2019-09-09] MEDS: Glatiramer Acetate [Copaxone] 20 MG SC SCH (12:32)
--- NOTE | 2019-09-09 14:36 | PDOC.HOSPP ---
- Subjective Subjective: Seen and examined. More alert and awake. Blood pressure still not controlled, Case discussed with nephrology and medications have been adjusted.Diarrhea has resolved, Stop IV fluids. Overall patient is dramatically improved on IV antibiotic therapy and now back to her baseline. Patient responding to antibiotics for urinary tract infection. - Objective Vital Signs & Weight: Vital Signs (12 hours) Temp Pulse Resp BP BP Pulse Ox 09/09/19 12:33 101 H 194/81 H 09/09/19 12:26 101 H 18 95 09/09/19 11:36 98.0 F 111 H 20 214/90 H 96 09/09/19 08:45 94 209/98 H 09/09/19 08:43 209/98 H 09/09/19 08:15 98.7 F 99 16 209/98 H 97 09/09/19 06:55 99 20 94 L 09/09/19 05:55 99 09/09/19 04:18 97.9 F 99 16 160/64 H 97 Weight Admit Weight 128 lb 8.472 oz Weight 128 lb 8.472 oz I&O: 09/08/19 09/09/19 09/10/19 06:59 06:59 06:59 Intake Total 945 1186 Output Total 300 450 Balance 645 736 Result Diagrams: 09/05/19 06:13 09/09/19 11:29 Additional Labs: Accuchecks 09/09/19 09/09/19 09/08/19 11:41 04:59 20:28 POC Glucose 93 83 75 09/08/19 15:53 POC Glucose 97 Hospitalist ROS - Review of Systems All other systems reviewed; all pertinent +/- noted in HPI/Subj - Medication Medications: Active Medications Generic Name Dose Route Start Last Admin Trade Name Freq PRN Reason Stop Dose Admin Acetaminophen 650 mg 09/03/19 20:11 09/08/19 20:14 Tylenol PO 650 mg Q4H PRN Administration Headache/Fever/Mild Pain (1-3) Albuterol Sulfate 2.5 mg 09/04/19 19:00 09/09/19 12:26 Ventolin NEB 2.5 mg [id number] TARAN Administration Aspirin 81 mg 09/04/19 09:00 09/09/19 08:45 Ecotrin PO 81 mg DAILY TARAN Administration Atorvastatin Calcium 40 mg 09/04/19 09:00 09/09/19 08:46 Lipitor PO 40 mg DAILY TARAN Administration Baclofen 10 mg 09/03/19 21:00 09/09/19 08:45 Lioresal PO 10 mg TID TARAN Administration Citalopram Hydrobromide 20 mg 09/04/19 09:00 09/09/19 08:45 Celexa PO 20 mg DAILY TARAN Administration Clonidine 0.2 mg 09/07/19 09:00 09/07/19 10:20 Fcgoprkj-Xpu-9 TD 0.2 mg Q7DAYS TARAN Administration Diphenhydramine HCl 25 mg 09/07/19 13:34 09/08/19 20:12 Benadryl PO 25 mg Q6H PRN Administration Itching & Insomnia Docusate Sodium 100 mg 09/03/19 21:00 09/09/19 08:43 Colace PO 100 mg BID TARAN Administration Ferrous Sulfate 325 mg 09/04/19 08:00 09/09/19 08:44 Feosol PO 325 mg BID-WM TARAN Administration Haloperidol Lactate 5 mg 09/04/19 12:20 09/08/19 20:10 Haldol IM 5 mg Q8H PRN Administration Agitation Heparin Sodium (Porcine) 5,000 units 09/03/19 21:00 09/09/19 09:09 Heparin SC Not Given TID TARAN Hydralazine HCl 10 mg 09/05/19 06:31 09/08/19 16:57 Apresoline SLOW IVP 10 mg Q2H PRN Administration Hypertension Meropenem 500 mg/ Sodium 100 mls @ 200 mls/hr 09/05/19 18:00 09/09/19 08:49 Chloride IVPB 100 mls 0200,1000,1800 TARAN Administration Ipratropium [place] 2.5 ml 09/05/19 06:30 09/09/19 06:55 Atrovent NEB 2.5 ml BID-RT TARAN Administration Isosorbide Mononitrate 60 mg 09/04/19 09:00 09/09/19 08:46 Imdur PO 60 mg DAILY TARAN Administration Ketotifen Fumarate 1 drop 09/04/19 09:00 09/09/19 08:46 Zaditor 0.025% Ophth Soln EA EYE 1 drop BID TARAN Administration Levothyroxine Sodium 50 mcg 09/04/19 06:00 09/09/19 05:55 Synthroid PO 50 mcg 0600 TARAN Administration Lisinopril 40 mg 09/06/19 09:00 09/09/19 08:43 Zestril PO 40 mg DAILY TARAN Administration Metformin HCl 500 mg 09/06/19 08:00 09/09/19 08:43 Glucophage PO 500 mg BID-WM TARAN Administration Mometasone Furoate 1 puff 09/05/19 06:30 09/09/19 06:56 Asmanex Hfa 100 Mcg INH 1 puff BID-RT TARAN Administration Nifedipine 120 mg 09/08/19 05:18 09/09/19 08:45 Procardia Xl PO 120 mg DAILY TARAN Administration Glatiramer Acetate [ 0 each 09/07/19 09:00 09/09/19 12:32 Copaxone] 20 Mg SC 20 each DAILY TARAN Administration Primidone 100 mg 09/03/19 21:00 09/09/19 08:44 Mysoline PO 100 mg TID TARAN Administration Ropinirole HCl 2 mg 09/03/19 21:00 09/09/19 08:44 Requip PO 2 mg TID TARAN Administration Saccharomyces Boulardii 250 mg 09/04/19 09:00 09/09/19 08:45 Florastor PO 250 mg DAILY TARAN Administration Sodium Bicarbonate 650 mg 09/05/19 21:00 09/09/19 08:45 Bicarbonate, Sodium PO 650 mg BID TARAN Administration Sodium Chloride 10 ml 09/03/19 21:00 09/09/19 08:49 Flush - Normal Saline IVF Not Given Q12HR TARAN - Exam General Appearance: NAD, awake alert Eye: PERRL, anicteric sclera ENT: normocephalic atraumatic, moist mucosa Neck: supple, symmetric, no lymphadenopathy Heart: no murmur, no gallops, no rubs Respiratory: CTAB, no wheezes, no rales, no ronchi Gastrointestinal: soft, non-tender, no guarding, no rigidity Extremities: no edema Skin: no lesions, no rashes Skin - other findings: Bilat leg amputations healed Neurological: cranial nerve grossly intact, no focal deficits Neurological - other findings: shaking and uncoordination from MS per patient Musculoskeletal: generalized weakness Psychiatric: normal affect, A&O x 3 Hosp A/P (1) Severe sepsis Code(s): A41.9 - SEPSIS, UNSPECIFIED ORGANISM; R65.20 - SEVERE SEPSIS WITHOUT SEPTIC SHOCK Status: Acute (2) UTI (urinary tract infection) Status: Acute (3) TRI (acute kidney injury) Code(s): N17.9 - ACUTE KIDNEY FAILURE, UNSPECIFIED Status: Resolved (4) Severe sepsis with acute organ dysfunction Code(s): A41.9 - SEPSIS, UNSPECIFIED ORGANISM; R65.20 - SEVERE SEPSIS WITHOUT SEPTIC SHOCK Status: Resolved (5) Acute on chronic diastolic ACC/AHA stage C congestive heart failure Code(s): I50.33 - ACUTE ON CHRONIC DIASTOLIC (CONGESTIVE) HEART FAILURE Status : Acute (6) Sepsis with acute organ dysfunction Code(s): A41.9 - SEPSIS, UNSPECIFIED ORGANISM; R65.20 - SEVERE SEPSIS WITHOUT SEPTIC SHOCK Status: Acute (7) Diabetes type 2, controlled Code(s): E11.9 - TYPE 2 DIABETES MELLITUS WITHOUT COMPLICATIONS Status: Chronic (8) Hypertension Code(s): I10 - ESSENTIAL (PRIMARY) HYPERTENSION Status: Chronic (9) Hypothyroidism Code(s): E03.9 - HYPOTHYROIDISM, UNSPECIFIED Status: Chronic (10) Multiple sclerosis Code(s): G35 - MULTIPLE SCLEROSIS Status: Chronic (11) Parkinson disease Code(s): G20 - PARKINSON'S DISEASE Status: Chronic (12) S/P AKA (above knee amputation) bilateral Code(s): Z89.611 - ACQUIRED ABSENCE OF RIGHT LEG ABOVE KNEE; Z89.612 - ACQUIRED ABSENCE OF LEFT LEG ABOVE KNEE Status: Chronic - Plan Plan: Medical unit nephrology consultation, recommendations appreciated infectious disease consultation was requested however unavailable until next patient with extended spectrum resistant E. coli and pseudomonas UTI, chronic Gonsalez catheter for 15+ years patient sensitivity is noted for sensitive to meropenem S/p PICC line will plan for Invanz daily infusion on discharge, 1gm daily to be completed on 09/16/19 adjusted blood pressure medication continue other home medications is able signed DNR paperwork for out of the hospital arrest Mood stabilizers as needed Diarrhea resolved today, stop IV fluids C.diff negative long-term prognosis is poor
[2019-09-09] MEDS: hydrALAZINE 20 MG/ML VIAL SLOW IVP PRN (17:42)
[2019-09-09] MEDS ORDERED: Labetalol HCl 100 MG/20 ML VIAL ONE (19:50)
[2019-09-09] MEDS ORDERED: Labetalol HCl 100 MG/20 ML VIAL SLOW IVP SCH (20:00)
[2019-09-09 20:10] LABS: #Basophils 0.1 thou/uL (0.0-0.2); #Eosinphils 0.6 thou/uL (0.0-0.7); #Lymphocytes 2.6 thou/uL (1.20-3.40); #Monocytes 1.1 thou/uL (0.11-0.59); #Neutrophils 9.1 thou/uL (1.40-6.50); %Basophils 0.7 % (0.0-1.0); %Eosinophils 4.2 % (0.0-10.0); %Lymphocytes 19.2 % (21.0-51.0); %Monocytes 8.1 % (0.0-10.0); %Neutrophils 67.9 % (42.0-75.0); Hemoglobin 10.7 g/dL (12.0-16.0); Mean Corpuscular HGB CONC 33.3 g/dL (32.0-36.0); Mean Corpuscular Hemoglobin 28.4 pg (27.0-31.0); Mean Corpuscular Volume 85.2 fL (78.0-98.0); Mean Platelet Volume 7.5 fL (7.4-10.4); Platelet Count 329 thou/uL (130-400); Red Blood Cell (RBC) Count 3.78 mill/uL (4.20-5.40); White Blood Cell (WBC) Count 13.5 thou/uL (4.8-10.8)
[2019-09-09 20:27] LABS: Lactic Acid 1.2 mmol/L (0.5-2.2)
[2019-09-09 20:31] LABS: Anion Gap 14 mmol/L (10-20); BUN (Urea Nitrogen) 4 mg/dL (9.8-20.1); Calc. Creatinine Clearance 83 mL/min (70-130); Calcium 8.2 mg/dL (7.8-10.44); Carbon Dioxide 21 mmol/L (23-31); Chloride 106 mmol/L (98-107); Estimated GFR-MDRD Greater than 90; Glucose 161 mg/dL (83-110); Magnesium 2.2 mg/dL (1.6-2.6); Potassium 3.7 mmol/L (3.5-5.1); Sodium 137 mmol/L (136-145)
--- NOTE | 2019-09-09 21:09 | RAD ---
CHEST ONE VIEW: History: Tachycardia. Comparison: 09-03-19 FINDINGS: Cardiac silhouette is magnified by projection. Pulmonary vasculature is unremarkable. Mediastinum is midline with post-operative changes. Left upper extremity PICC is in place with the tip coiled over t he expected location of the azygos vein. No lobar consolidation or evidence of pneumothorax. IMPRESSION: Atherosclerosis. Chronic type findings are stable. No active cardiopulmonary abnormalities are demons trated. POS: BST
[2019-09-09] MEDS: diphenhydrAMINE 25 MG CAP PO PRN (23:37)
[2019-09-10] MEDS: Albuterol Sulfate 2.5 mg/3 ml Neb NEB SCH ×4 (01:15→19:01)
[2019-09-10] MEDS: Meropenem 500 MG in Sodium Chloride 0.9% 100 ML IVPB SCH ×3 (04:15→17:04)
[2019-09-10 06:25] LABS: Anion Gap 13 mmol/L (10-20); BUN (Urea Nitrogen) 4 mg/dL (9.8-20.1); Calc. Creatinine Clearance 93 mL/min (70-130); Calcium 8.2 mg/dL (7.8-10.44); Carbon Dioxide 24 mmol/L (23-31); Chloride 106 mmol/L (98-107); Estimated GFR-MDRD Greater than 90; Glucose 96 mg/dL (83-110); Magnesium 1.8 mg/dL (1.6-2.6); Potassium 3.5 mmol/L (3.5-5.1); Sodium 139 mmol/L (136-145)
[2019-09-10] MEDS: Mometasone 100 MCG HFA INHALER INH SCH ×2 (07:04→19:01)
[2019-09-10] MEDS: Ipratropium Bromide 2.5 ml Neb NEB SCH ×2 (07:09→18:57)
[2019-09-10] MEDS: Ketotifen Fumarate 0.025% Ophth Soln 5 ml Bottle EA EYE SCH ×2 (08:13→21:09)
[2019-09-10] MEDS: NIFEdipine XL 60 MG TAB PO SCH (08:14)
[2019-09-10] MEDS: Docusate 100 MG CAP PO SCH ×2 (08:15→21:07)
[2019-09-10] MEDS: Citalopram 20 MG TAB PO SCH (08:16)
[2019-09-10] MEDS: Primidone 50 MG TAB PO SCH ×3 (08:16→21:06)
[2019-09-10] MEDS: rOPINIRole HCl 2 MG TAB PO SCH ×3 (08:16→21:08)
[2019-09-10] MEDS: metFORMIN 500 MG TAB PO SCH ×2 (08:16→16:32)
[2019-09-10] MEDS: Lisinopril 20 MG TAB PO SCH (08:16)
[2019-09-10] MEDS: Atorvastatin Calcium 40 MG TAB PO SCH (08:17)
[2019-09-10] MEDS: Labetalol 100 MG TAB PO SCH ×2 (08:17→21:08)
[2019-09-10] MEDS: Aspirin 81 mg Enteric Coated Tablet PO SCH (08:17)
[2019-09-10] MEDS: Ferrous Sulfate 325 MG TAB PO SCH ×2 (08:17→16:32)
[2019-09-10] MEDS: Levothyroxine Sodium 50 MCG TAB PO SCH (08:17)
[2019-09-10] MEDS: Sodium Bicarbonate Tab 325 MG TAB PO SCH (08:17)
[2019-09-10] MEDS: Heparin 5,000 UNITS/ML VIAL SC SCH ×3 (08:18→21:09)
[2019-09-10] MEDS: Saccharomyces boulardii 250 MG CAP PO SCH (08:18)
[2019-09-10] MEDS: Baclofen 10 MG TAB PO SCH ×3 (08:18→21:08)
[2019-09-10] MEDS ORDERED: Labetalol 100 MG TAB PO SCH (10:30)
[2019-09-10] MEDS: Glatiramer Acetate [Copaxone] 20 MG SC SCH (10:58)
--- NOTE | 2019-09-10 16:28 | EKG ---
Test Reason : Blood Pressure : / mmHG Vent. Rate : 133 BPM Atrial Rate : 073 BPM P-R Int : 000 ms QRS Dur : 086 ms QT Int : 362 ms P-R-T Axes : 000 104 029 degrees QTc Int : 538 ms Sinus tachycardia Rightward axis Anterior infarct , age undetermined cannot be excluded Nonspecific ST abnormality Abnormal ECG Confirmed by KAILASH ALVARES ([id number]) on 09/10/2019 4:28:16 PM Referred By: CARI Confirmed By:KAILASH ALVARES
[2019-09-10] MEDS: hydrALAZINE 20 MG/ML VIAL SLOW IVP PRN (16:57)
--- NOTE | 2019-09-10 18:56 | PDOC.HOSPP ---
- Subjective Subjective: Seen and examined. Patient was upgraded to medical unit telemetry for SVT. Due to have [employer] error a blood pressure medication that was increased, labetalol , by nephrology was not given this would have better control blood pressure and avoided SVT episode. Patient was not symptomatic through SVT and it did resolve spontaneously. Patient monitor on continuous telemetry for further problems with arrhythmia. Breathing well on room air. Otherwise patient is clinically improved. Once blood pressure is controlled real plan for discharge to nursing facility where she is a chronic resident on IV antibiotics which will be completed on 09/16/2019. - Objective Vital Signs & Weight: Vital Signs (12 hours) Temp Pulse Resp BP BP Pulse Ox 09/10/19 16:57 65 180/87 H 09/10/19 16:00 97.6 F 65 20 180/87 H 96 09/10/19 13:21 65 16 94 L 09/10/19 11:00 98 F 66 20 183/71 H 97 09/10/19 10:57 102 H 185/75 H 09/10/19 08:17 104 H 185/81 H 09/10/19 08:16 185/81 H 09/10/19 08:14 104 H 185/81 H 09/10/19 08:07 98.3 F 104 H 20 185/81 H 96 09/10/19 08:00 96 09/10/19 07:12 68 16 95 09/10/19 07:09 68 16 95 09/10/19 07:04 104 H 16 95 Weight Admit Weight 128 lb 8.472 oz Weight 128 lb 8.472 oz I&O: 09/09/19 09/10/19 09/11/19 06:59 06:59 06:59 Intake Total 1186 Output Total 450 1700 Balance 736 -1700 Result Diagrams: 09/09/19 20:03 09/10/19 05:33 Additional Labs: Accuchecks 09/10/19 09/10/19 09/10/19 17:19 10:47 06:09 POC Glucose 117 H 93 95 09/09/19 09/09/19 19:12 17:33 POC Glucose 165 H 136 H Radiology Reviewed by me: Yes EKG Reviewed by me: Yes Hospitalist ROS - Review of Systems All other systems reviewed; all pertinent +/- noted in HPI/Subj - Medication Medications: Active Medications Generic Name Dose Route Start Last Admin Trade Name Freq PRN Reason Stop Dose Admin Acetaminophen 650 mg 09/03/19 20:11 09/08/19 20:14 Tylenol PO 650 mg Q4H PRN Administration Headache/Fever/Mild Pain (1-3) Albuterol Sulfate 2.5 mg 09/04/19 19:00 09/10/19 13:21 Ventolin NEB 2.5 mg [id number] TARAN Administration Aspirin 81 mg 09/04/19 09:00 09/10/19 08:17 Ecotrin PO 81 mg DAILY TARAN Administration Atorvastatin Calcium 40 mg 09/04/19 09:00 09/10/19 08:17 Lipitor PO 40 mg DAILY TARAN Administration Baclofen 10 mg 09/03/19 21:00 09/10/19 16:32 Lioresal PO 10 mg TID TARAN Administration Citalopram Hydrobromide 20 mg 09/04/19 09:00 09/10/19 08:16 Celexa PO 20 mg DAILY TARAN Administration Clonidine 0.2 mg 09/07/19 09:00 09/07/19 10:20 Fcvldarz-Gvd-8 TD 0.2 mg Q7DAYS TARAN Administration Diphenhydramine HCl 25 mg 09/07/19 13:34 09/09/19 23:37 Benadryl PO 25 mg Q6H PRN Administration Itching & Insomnia Docusate Sodium 100 mg 09/03/19 21:00 09/10/19 08:15 Colace PO 100 mg BID TARAN Administration Ferrous Sulfate 325 mg 09/04/19 08:00 09/10/19 16:32 Feosol PO 325 mg BID-WM TARAN Administration Haloperidol Lactate 5 mg 09/04/19 12:20 09/08/19 20:10 Haldol IM 5 mg Q8H PRN Administration Agitation Heparin Sodium (Porcine) 5,000 units 09/03/19 21:00 09/10/19 16:32 Heparin SC 5,000 units TID TARAN Administration Hydralazine HCl 10 mg 09/05/19 06:31 09/10/19 16:57 Apresoline SLOW IVP 10 mg Q2H PRN Administration Hypertension Meropenem 500 mg/ Sodium 100 mls @ 200 mls/hr 09/05/19 18:00 09/10/19 17:04 Chloride IVPB 100 mls 0200,1000,1800 TARAN Administration Ipratropium [place] 2.5 ml 09/05/19 06:30 09/10/19 07:09 Atrovent NEB 2.5 ml BID-RT TARAN Administration Isosorbide Mononitrate 60 mg 09/04/19 09:00 09/10/19 08:16 Imdur PO 60 mg DAILY TARAN Administration Ketotifen Fumarate 1 drop 09/04/19 09:00 09/10/19 08:13 Zaditor 0.025% Ophth Soln EA EYE 1 drop BID TARAN Administration Levothyroxine Sodium 50 mcg 09/04/19 06:00 09/10/19 08:17 Synthroid PO 50 mcg 0600 TARAN Administration Lisinopril 40 mg 09/06/19 09:00 09/10/19 08:16 Zestril PO 40 mg DAILY TARAN Administration Metformin HCl 500 mg 09/06/19 08:00 09/10/19 16:32 Glucophage PO 500 mg BID-WM TARAN Administration Mometasone Furoate 1 puff 09/05/19 06:30 09/10/19 07:04 Asmanex Hfa 100 Mcg INH 1 puff BID-RT TARAN Administration Nifedipine 120 mg 09/08/19 05:18 09/10/19 08:14 Procardia Xl PO 120 mg DAILY TARAN Administration Glatiramer Acetate [ 0 each 09/07/19 09:00 09/10/19 10:58 Copaxone] 20 Mg SC 20 each DAILY TARAN Administration Primidone 100 mg 09/03/19 21:00 09/10/19 16:32 Mysoline PO 100 mg TID TARAN Administration Ropinirole HCl 2 mg 09/03/19 21:00 09/10/19 16:32 Requip PO 2 mg TID TARAN Administration Saccharomyces Boulardii 250 mg 09/04/19 09:00 09/10/19 08:18 Florastor PO 250 mg DAILY TARAN Administration Sodium Chloride 10 ml 09/03/19 21:00 09/10/19 08:19 Flush - Normal Saline IVF 10 ml Q12HR TARAN Administration - Exam General Appearance: NAD, awake alert Eye: PERRL, anicteric sclera ENT: normocephalic atraumatic, moist mucosa Neck: supple, symmetric, no lymphadenopathy Heart: no murmur, no gallops, no rubs Respiratory: CTAB, no wheezes, no rales Gastrointestinal: soft, non-tender, no guarding, no rigidity Extremities: no edema Skin: no lesions, no rashes Neurological: cranial nerve grossly intact, no weakness Neurological - other findings: Weakness and shaking at her baselilne Musculoskeletal: generalized weakness Psychiatric: normal affect, A&O x 3 Hosp A/P (1) Severe sepsis Code(s): A41.9 - SEPSIS, UNSPECIFIED ORGANISM; R65.20 - SEVERE SEPSIS WITHOUT SEPTIC SHOCK Status: Acute (2) UTI (urinary tract infection) Status: Acute (3) TRI (acute kidney injury) Code(s): N17.9 - ACUTE KIDNEY FAILURE, UNSPECIFIED Status: Resolved (4) Severe sepsis with acute organ dysfunction Code(s): A41.9 - SEPSIS, UNSPECIFIED ORGANISM; R65.20 - SEVERE SEPSIS WITHOUT SEPTIC SHOCK Status: Resolved (5) Acute on chronic diastolic ACC/AHA stage C congestive heart failure Code(s): I50.33 - ACUTE ON CHRONIC DIASTOLIC (CONGESTIVE) HEART FAILURE Status : Acute (6) Sepsis with acute organ dysfunction Code(s): A41.9 - SEPSIS, UNSPECIFIED ORGANISM; R65.20 - SEVERE SEPSIS WITHOUT SEPTIC SHOCK Status: Acute (7) Diabetes type 2, controlled Code(s): E11.9 - TYPE 2 DIABETES MELLITUS WITHOUT COMPLICATIONS Status: Chronic (8) Hypertension Code(s): I10 - ESSENTIAL (PRIMARY) HYPERTENSION Status: Chronic (9) Hypothyroidism Code(s): E03.9 - HYPOTHYROIDISM, UNSPECIFIED Status: Chronic (10) Multiple sclerosis Code(s): G35 - MULTIPLE SCLEROSIS Status: Chronic (11) Parkinson disease Code(s): G20 - PARKINSON'S DISEASE Status: Chronic (12) S/P AKA (above knee amputation) bilateral Code(s): Z89.611 - ACQUIRED ABSENCE OF RIGHT LEG ABOVE KNEE; Z89.612 - ACQUIRED ABSENCE OF LEFT LEG ABOVE KNEE Status: Chronic - Plan Plan: Medical unit with telemetry nephrology consultation, recommendations appreciated infectious disease consultation was requested however unavailable until next patient with extended spectrum resistant E. coli and pseudomonas UTI, chronic Gonsalez catheter for 15+ years patient sensitivity is noted for sensitive to meropenem S/p PICC line will plan for Invanz daily infusion on discharge, 1gm daily to be completed on 09/16/19 adjusted blood pressure medication as needed continue other home medications is able signed DNR paperwork for out of the hospital arrest Mood stabilizers as needed Diarrhea resolved today, stop IV fluids C.diff negative Episode of SVT on 09/09/19 - spontaneously resolved patient asymptomatic long-term prognosis is guarded
[2019-09-11] MEDS: Albuterol Sulfate 2.5 mg/3 ml Neb NEB SCH ×4 (00:46→18:37)
[2019-09-11] MEDS: Meropenem 500 MG in Sodium Chloride 0.9% 100 ML IVPB SCH ×3 (02:55→18:06)
[2019-09-11] MEDS ORDERED: Activase 2 MG VIAL CATH SCH (03:45)
[2019-09-11] MEDS ORDERED: Sterile Water 10 ML VIAL IVP SCH (03:45)
[2019-09-11] MEDS: hydrALAZINE 20 MG/ML VIAL SLOW IVP PRN (04:27)
[2019-09-11] MEDS: Levothyroxine Sodium 50 MCG TAB PO SCH (06:07)
[2019-09-11 06:13] LABS: Anion Gap 14 mmol/L (10-20); BUN (Urea Nitrogen) 6 mg/dL (9.8-20.1); Calc. Creatinine Clearance 103 mL/min (70-130); Calcium 8.4 mg/dL (7.8-10.44); Carbon Dioxide 24 mmol/L (23-31); Chloride 105 mmol/L (98-107); Estimated GFR-MDRD Greater than 90; Glucose 99 mg/dL (83-110); Potassium 3.6 mmol/L (3.5-5.1); Sodium 139 mmol/L (136-145)
[2019-09-11] MEDS: Mometasone 100 MCG HFA INHALER INH SCH ×2 (07:08→18:39)
[2019-09-11] MEDS: Ipratropium Bromide 2.5 ml Neb NEB SCH ×2 (07:11→18:40)
[2019-09-11] MEDS: Ferrous Sulfate 325 MG TAB PO SCH ×2 (09:29→18:06)
[2019-09-11] MEDS: Baclofen 10 MG TAB PO SCH ×3 (09:30→22:20)
[2019-09-11] MEDS: metFORMIN 500 MG TAB PO SCH ×2 (09:30→18:07)
[2019-09-11] MEDS: Atorvastatin Calcium 40 MG TAB PO SCH (09:30)
[2019-09-11] MEDS: Aspirin 81 mg Enteric Coated Tablet PO SCH (09:30)
[2019-09-11] MEDS: Docusate 100 MG CAP PO SCH ×2 (09:31→22:20)
[2019-09-11] MEDS: Citalopram 20 MG TAB PO SCH (09:31)
[2019-09-11] MEDS: Lisinopril 20 MG TAB PO SCH (09:32)
[2019-09-11] MEDS: Labetalol 100 MG TAB PO SCH ×3 (09:32→22:20)
[2019-09-11] MEDS: Primidone 50 MG TAB PO SCH ×3 (09:33→22:21)
[2019-09-11] MEDS: NIFEdipine XL 60 MG TAB PO SCH (09:33)
[2019-09-11] MEDS: rOPINIRole HCl 2 MG TAB PO SCH ×3 (09:34→22:20)
[2019-09-11] MEDS: Saccharomyces boulardii 250 MG CAP PO SCH (09:34)
[2019-09-11] MEDS: Ketotifen Fumarate 0.025% Ophth Soln 5 ml Bottle EA EYE SCH ×2 (09:39→22:19)
[2019-09-11] MEDS: Heparin 5,000 UNITS/ML VIAL SC SCH ×3 (09:45→22:21)
--- NOTE | 2019-09-11 11:39 | PRG ---
DATE OF SERVICE: 09/11/2019 SERVICE: Nephrology. SUBJECTIVE: A 73-year-old female with multiple medical condition including MS, status post bilateral AKA, diabetes, and others, being followed up for uncontrolled hypertension and acute renal failure. Feeling better. Desires to be discharged. No new problem. No nausea, vomiting, or diarrhea. OBJECTIVE: VITAL SIGNS: Temperature 98.2, pulse 92, respiratory rate 16, SpO2 of 96% on room air, and blood pressure is 174/79. GENERAL: Elderly female, in no obvious distress. Afebrile. Anicteric. Acyanotic. HEENT: Normocephalic, atraumatic. Oral mucosa is moist. CARDIOVASCULAR: Regular rhythm and rate with normal heart sounds 1 and 2. RESPIRATORY: Fair air entry bilateral with some transmitted breath sounds. No use of accessory muscles. Rhonchi noted. GI: Full, soft, nondistended, with normal bowel sounds. UROGENITAL: Gonsalez catheter is in place draining clear urine. EXTREMITIES: Bilateral AKA noted. DIAGNOSTIC DATA: Renal function; BMP showed sodium 139, potassium 3.6, chloride 105, CO2 of 24, BUN 6, creatinine 0.45, glucose 99, and calcium 8.4. ASSESSMENT: 1. Acute renal failure: Resolved. 2. Hypertension: Control is better, but still suboptimal. Lowest SBP in the last 24 hours was 174. We will increase labetalol to 200 mg t.i.d. We will continue nifedipine, clonidine patch and oral. 3. Urinary tract infection: Treatment as per primary attending. 4. Disposition: The patient can be discharged from Nephrology point of view. Further antihypertensives management to be undertaken in the care home. Job ID: [id number]
[2019-09-11 13:40] VITALS: BMI 22.4
[2019-09-11] MEDS: Glatiramer Acetate [Copaxone] 20 MG SC SCH (16:21)
--- NOTE | 2019-09-11 17:12 | PDOC.HOSPP ---
- Subjective Subjective: Seen and examined. Mental status at her baseline. No acute distress. Blood pressure better controlled. Recommended safe for discharge by nephrology. Will need first dose of Invanz in acute care hospital, Invanz to be continued in assisted facility via PICC line until 09/16/2019. - Objective Vital Signs & Weight: Vital Signs (12 hours) Temp Pulse Resp BP BP Pulse Ox 09/11/19 15:37 97 129/60 09/11/19 13:03 100 16 94 L 09/11/19 12:00 98.1 F 96 15 137/66 96 09/11/19 09:33 92 09/11/19 09:32 92 174/79 H 09/11/19 09:30 97.9 F 98 20 174/79 H 09/11/19 07:11 92 16 96 09/11/19 07:10 92 16 96 09/11/19 07:08 92 16 96 09/11/19 05:38 105 H 180/72 H Weight Admit Weight 128 lb 8.472 oz Weight 139 lb 1.6 oz I&O: 09/10/19 09/11/19 09/12/19 06:59 06:59 06:59 Intake Total 500 177 Output Total 1700 950 Balance -1700 -450 177 Result Diagrams: 09/09/19 20:03 09/11/19 05:17 Additional Labs: Accuchecks 09/11/19 09/11/19 09/11/19 16:08 11:02 05:37 POC Glucose 117 H 90 103 09/10/19 09/10/19 09/08/19 20:08 17:19 04:26 POC Glucose 103 117 H 76 Hospitalist ROS - Review of Systems All other systems reviewed; all pertinent +/- noted in HPI/Subj - Medication Medications: Active Medications Generic Name Dose Route Start Last Admin Trade Name Freq PRN Reason Stop Dose Admin Acetaminophen 650 mg 09/03/19 20:11 09/08/19 20:14 Tylenol PO 650 mg Q4H PRN Administration Headache/Fever/Mild Pain (1-3) Albuterol Sulfate 2.5 mg 09/04/19 19:00 09/11/19 13:03 Ventolin NEB 2.5 mg [id number] TARAN Administration Aspirin 81 mg 09/04/19 09:00 09/11/19 09:30 Ecotrin PO 81 mg DAILY TARAN Administration Atorvastatin Calcium 40 mg 09/04/19 09:00 09/11/19 09:30 Lipitor PO 40 mg DAILY TARAN Administration Baclofen 10 mg 09/03/19 21:00 09/11/19 15:37 Lioresal PO 10 mg TID TARAN Administration Citalopram Hydrobromide 20 mg 09/04/19 09:00 09/11/19 09:31 Celexa PO 20 mg DAILY TARAN Administration Clonidine 0.2 mg 09/07/19 09:00 09/07/19 10:20 Pvijehgi-Szt-8 TD 0.2 mg Q7DAYS TARAN Administration Diphenhydramine HCl 25 mg 09/07/19 13:34 09/09/19 23:37 Benadryl PO 25 mg Q6H PRN Administration Itching & Insomnia Docusate Sodium 100 mg 09/03/19 21:00 09/11/19 09:31 Colace PO 100 mg BID TARAN Administration Ferrous Sulfate 325 mg 09/04/19 08:00 09/11/19 09:29 Feosol PO 325 mg BID-WM TARAN Administration Haloperidol Lactate 5 mg 09/04/19 12:20 09/08/19 20:10 Haldol IM 5 mg Q8H PRN Administration Agitation Heparin Sodium (Porcine) 5,000 units 09/03/19 21:00 09/11/19 15:40 Heparin SC 5,000 units TID TARAN Administration Hydralazine HCl 10 mg 09/05/19 06:31 09/11/19 04:27 Apresoline SLOW IVP 10 mg Q2H PRN Administration Hypertension Meropenem 500 mg/ Sodium 100 mls @ 200 mls/hr 09/05/19 18:00 09/11/19 09:39 Chloride IVPB 100 mls 0200,1000,1800 TARAN Administration Ipratropium [place] 2.5 ml 09/05/19 06:30 09/11/19 07:11 Atrovent NEB 2.5 ml BID-RT TARAN Administration Isosorbide Mononitrate 60 mg 09/04/19 09:00 09/11/19 09:31 Imdur PO 60 mg DAILY TARAN Administration Ketotifen Fumarate 1 drop 09/04/19 09:00 09/11/19 09:39 Zaditor 0.025% Ophth Soln EA EYE 1 drop BID TARAN Administration Labetalol HCl 200 mg 09/11/19 15:00 09/11/19 15:37 Normodyne PO 200 mg TID TARAN Administration Levothyroxine Sodium 50 mcg 09/04/19 06:00 09/11/19 06:07 Synthroid PO 50 mcg 0600 TARAN Administration Lisinopril 40 mg 09/06/19 09:00 09/11/19 09:32 Zestril PO 40 mg DAILY TARAN Administration Metformin HCl 500 mg 09/06/19 08:00 09/11/19 09:30 Glucophage PO 500 mg BID-WM TARAN Administration Mometasone Furoate 1 puff 09/05/19 06:30 09/11/19 07:08 Asmanex Hfa 100 Mcg INH 1 puff BID-RT TARAN Administration Nifedipine 120 mg 09/08/19 05:18 09/11/19 09:33 Procardia Xl PO 120 mg DAILY TARAN Administration Glatiramer Acetate [ 0 each 09/07/19 09:00 09/11/19 16:21 Copaxone] 20 Mg SC Not Given DAILY TARAN Primidone 100 mg 09/03/19 21:00 09/11/19 15:39 Mysoline PO 100 mg TID TARAN Administration Ropinirole HCl 2 mg 09/03/19 21:00 09/11/19 15:40 Requip PO 2 mg TID TARAN Administration Saccharomyces Boulardii 250 mg 09/04/19 09:00 09/11/19 09:34 Florastor PO 250 mg DAILY TARAN Administration Sodium Chloride 10 ml 09/03/19 21:00 09/11/19 15:36 Flush - Normal Saline IVF 10 ml Q12HR TARAN Administration - Exam General Appearance: NAD, awake alert Eye: PERRL, anicteric sclera ENT: normocephalic atraumatic, moist mucosa Neck: supple, symmetric, no lymphadenopathy Heart: no murmur, no gallops, no rubs Respiratory: CTAB, no wheezes, no rales, normal chest expansion Gastrointestinal: non-tender, non-distended, no guarding, no rigidity Extremities: no edema Skin: no lesions, no rashes Skin - other findings: Bilateral amputations well healed Neurological: normal sensation to touch, no focal deficits Musculoskeletal: generalized weakness Psychiatric: normal affect, oriented to person, oriented to place Hosp A/P (1) Severe sepsis Code(s): A41.9 - SEPSIS, UNSPECIFIED ORGANISM; R65.20 - SEVERE SEPSIS WITHOUT SEPTIC SHOCK Status: Acute (2) UTI (urinary tract infection) Status: Acute (3) TRI (acute kidney injury) Code(s): N17.9 - ACUTE KIDNEY FAILURE, UNSPECIFIED Status: Resolved (4) Severe sepsis with acute organ dysfunction Code(s): A41.9 - SEPSIS, UNSPECIFIED ORGANISM; R65.20 - SEVERE SEPSIS WITHOUT SEPTIC SHOCK Status: Resolved (5) Acute on chronic diastolic ACC/AHA stage C congestive heart failure Code(s): I50.33 - ACUTE ON CHRONIC DIASTOLIC (CONGESTIVE) HEART FAILURE Status : Acute (6) Sepsis with acute organ dysfunction Code(s): A41.9 - SEPSIS, UNSPECIFIED ORGANISM; R65.20 - SEVERE SEPSIS WITHOUT SEPTIC SHOCK Status: Acute (7) Diabetes type 2, controlled Code(s): E11.9 - TYPE 2 DIABETES MELLITUS WITHOUT COMPLICATIONS Status: Chronic (8) Hypertension Code(s): I10 - ESSENTIAL (PRIMARY) HYPERTENSION Status: Chronic (9) Hypothyroidism Code(s): E03.9 - HYPOTHYROIDISM, UNSPECIFIED Status: Chronic (10) Multiple sclerosis Code(s): G35 - MULTIPLE SCLEROSIS Status: Chronic (11) Parkinson disease Code(s): G20 - PARKINSON'S DISEASE Status: Chronic (12) S/P AKA (above knee amputation) bilateral Code(s): Z89.611 - ACQUIRED ABSENCE OF RIGHT LEG ABOVE KNEE; Z89.612 - ACQUIRED ABSENCE OF LEFT LEG ABOVE KNEE Status: Chronic - Plan Plan: Medical unit with telemetry, D/c planning 1st dose of Invanz in [facility] hospital will plan for Invanz daily infusion on discharge, 1gm daily to be completed on 09/16/19 BP better controlled - cleared by nephrology nephrology consultation, recommendations appreciated patient with extended spectrum resistant E. coli and pseudomonas UTI, chronic Gonsalez catheter for 15+ years patient sensitivity is noted for sensitive to meropenem S/p PICC line adjusted blood pressure medication as needed continue other home medications is able signed DNR paperwork for out of the hospital arrest Mood stabilizers as needed Diarrhea resolved today, stop IV fluids C.diff negative Episode of SVT on 09/09/19 - spontaneously resolved patient asymptomatic long-term prognosis is guarded
[2019-09-11] MEDS ORDERED: HumaLOG 300 UNITS/3 ML VIAL SC PRN ×2 (22:59)
[2019-09-12] MEDS: Albuterol Sulfate 2.5 mg/3 ml Neb NEB SCH ×3 (00:52→12:03)
[2019-09-12] MEDS: Meropenem 500 MG in Sodium Chloride 0.9% 100 ML IVPB SCH (02:00)
[2019-09-12] MEDS: Levothyroxine Sodium 50 MCG TAB PO SCH (04:57)
[2019-09-12 05:12] LABS: Anion Gap 12 mmol/L (10-20); BUN (Urea Nitrogen) 9 mg/dL (9.8-20.1); Calc. Creatinine Clearance 97 mL/min (70-130); Calcium 8.5 mg/dL (7.8-10.44); Carbon Dioxide 28 mmol/L (23-31); Chloride 104 mmol/L (98-107); Estimated GFR-MDRD Greater than 90; Glucose 95 mg/dL (83-110); Potassium 3.8 mmol/L (3.5-5.1); Sodium 140 mmol/L (136-145)
[2019-09-12] MEDS: Ipratropium Bromide 2.5 ml Neb NEB SCH (06:37)
[2019-09-12] MEDS: Mometasone 100 MCG HFA INHALER INH SCH (06:38)
[2019-09-12 07:47] VITALS: TEMP 97.6
[2019-09-12] MEDS: metFORMIN 500 MG TAB PO SCH (07:58)
[2019-09-12] MEDS: Ferrous Sulfate 325 MG TAB PO SCH (07:59)
[2019-09-12] MEDS ORDERED: Ertapenem 1 GM in Sodium Chloride 0.9% 100 ML IVPB SCH (08:00)
[2019-09-12] MEDS: NIFEdipine XL 60 MG TAB PO SCH (09:17)
[2019-09-12] MEDS: Heparin 5,000 UNITS/ML VIAL SC SCH (09:17)
[2019-09-12] MEDS: Citalopram 20 MG TAB PO SCH (09:19)
[2019-09-12] MEDS: Docusate 100 MG CAP PO SCH (09:19)
[2019-09-12] MEDS: Primidone 50 MG TAB PO SCH (09:19)
[2019-09-12] MEDS: rOPINIRole HCl 2 MG TAB PO SCH (09:20)
[2019-09-12] MEDS: Baclofen 10 MG TAB PO SCH (09:21)
[2019-09-12] MEDS: Labetalol 100 MG TAB PO SCH (09:21)
[2019-09-12] MEDS: Lisinopril 20 MG TAB PO SCH (09:21)
[2019-09-12] MEDS: Atorvastatin Calcium 40 MG TAB PO SCH (09:22)
[2019-09-12] MEDS: Aspirin 81 mg Enteric Coated Tablet PO SCH (09:22)
[2019-09-12] MEDS: Saccharomyces boulardii 250 MG CAP PO SCH (09:23)
[2019-09-12] MEDS: Ketotifen Fumarate 0.025% Ophth Soln 5 ml Bottle EA EYE SCH (09:25)
[2019-09-12] MEDS: Glatiramer Acetate [Copaxone] 20 MG SC SCH (09:33)
[2019-09-12 11:19] VITALS: BP 190/85
--- NOTE | 2019-09-13 02:23 | DIS ---
DATE OF ADMISSION: 09/03/2019 DATE OF DISCHARGE: 09/12/2019 REASON FOR HOSPITALIZATION: Altered mental status and urinary tract infection. SIGNIFICANT FINDINGS: The patient was found to have significant urinary tract infection with E. coli and Pseudomonas. PROCEDURES PERFORMED AND TREATMENTS RENDERED: The patient had maximum medical therapy initially on broad-spectrum antibiotics and was deescalated to culture and sensitivity as able. The patient with E. coli and Pseudomonas growing in the urine with sensitivity pattern being sensitive to meropenem. The patient received meropenem up until 09/12/2019, which was effective in chilling both Pseudomonas aeruginosa and E. coli. The patient with acute kidney injury on presentation, was seen and evaluated by Nephrology and had good followup with Nephrology throughout her hospitalization. The patient's blood pressure was difficult to control and required daily adjustments of blood pressure medications by Nephrology and myself. With maximum medical therapy, the patient did improve to the point where she was stabilized and safe to discharge to a residential facility, where she is a chronic resident. The patient recommended safe for discharge by all specialists on 09/12/2019. CONDITION ON DISCHARGE: Stable. SPECIFIC INSTRUCTIONS FOR THE PATIENT/FAMILY: 1. The patient is recommended to complete a full course of Invanz which will be completed on 09/16/2019. 2. The patient is recommended to continue all other medications as directed with new dosing of blood pressure medications. 3. The patient is recommended to have medication regimen adjusted appropriately by internal medicine physician at [facility], where she is a chronic resident. 4. The patient is recommended to follow up with Nephrology in the outpatient clinic in the next 1 to 2 weeks. 5. The patient is recommended to return to acute care hospital immediately if signs or symptoms return, worsen, or any other new symptoms occur. DISCHARGE MEDICATIONS: Please see full discharge medication list for details with the following changes; 1. Invanz 1 g IV piggyback daily for the next four days, last dose being on 09/16/2019. 2. Clonidine 0.2 mg transdermal patch q.7 days. 3. Albuterol/ipratropium bromide nebulizer solution q.6 hours p.r.n. shortness of breath. 4. Aspirin 81 mg one tablet p.o. daily. 5. Atorvastatin 40 mg one tablet p.o. daily. 6. Baclofen 10 mg one tablet p.o. t.i.d. 7. Citalopram 20 mg one tablet p.o. daily. 8. Docusate 100 mg one tablet p.o. b.i.d. 9. Ferrous sulfate 325 mg one tablet p.o. b.i.d. 10. Heparin subcutaneous injection 5000 units subcutaneously injected t.i.d. 11. Isosorbide mononitrate 60 mg one tablet p.o. daily. 12. Ketotifen fumarate 0.025 ophthalmic solution one drop each eye b.i.d. 13. Labetalol 200 mg one tablet p.o. t.i.d. 14. Synthroid 50 mcg one tablet p.o. daily. 15. Lisinopril 40 mg one tablet p.o. daily. 16. Metformin 500 mg one tablet p.o. b.i.d. 17. Mometasone 100 mcg (Asmanex HFA inhaler one puff p.o. b.i.d.). 18. Nifedipine 120 mg extended release one tablet p.o. daily. 19. Primidone 100 mg one tablet p.o. t.i.d. 20. Requip 2 mg one tablet p.o. t.i.d. 21. Saccharomyces boulardii 250 mg one tablet p.o. daily. 22. Tylenol 650 mg one tablet p.o. q.6 hours p.r.n. pain. 23. Dulcolax 10 mg one tablet p.o. daily p.r.n. constipation. 24. Humalog sliding scale mild with meals. 25. Humalog sliding scale at bedtime. 26. Zofran 4 mg one tablet p.o. q.6 hours p.r.n. nausea or vomiting. 27. Copaxone 40 mg subcutaneous injection daily. HOSPITAL COURSE: Ms. Hester is a very pleasant 73-year-old female with past medical history of advanced multiple sclerosis since she was roughly in her 20s, bilateral below the knee amputations from uncontrolled diabetes, diabetes mellitus, hypertension, hyperlipidemia, and chronic kidney disease, presents to [facility] on 09/03/2019 with altered mental status, acute kidney injury, and urinary tract infection. The patient initially placed on broad-spectrum antibiotics for maximum medical therapy. For acute kidney injury, the patient was seen and evaluated by Nephrology and had daily adjustments as appropriate. Please see full history and physical and consultation notes in addition to progress notes for full details on the patient's hospital course. The patient was found to have 2 organisms growing in her bladder and she has a chronic Gonsalez catheter for the last 15 years. The patient found to have E. coli and Pseudomonas in the urine, which were sensitive to meropenem. The patient was continued on meropenem up until 09/11/2019 and then we transitioned her to Invanz. The patient had 1 g Invanz IV piggyback daily on 09/12/2019 and she tolerated this without complications. The patient tolerating Invanz, was recommended safe for discharge to residential [facility], where she will complete a full course of Invanz on 09/16/2019. The patient's kidney injury has resolved and her blood pressure was controlled adequately prior to discharge. The patient recommended safe for discharge by Nephrology on 09/12/2019. The patient recommended to continue all medications as directed, to be re-evaluated by admitting physician at [facility]. The patient recommended to follow up with Nephrology in the next 1 to 2 weeks. The patient recommended to take all medications as directed. The patient recommended to return to acute care hospital immediately if signs or symptoms return, worsen, or any other new symptoms occur. Greater than 40 minutes spent coordinating care and discharge process for this patient. Job ID: [id number]
== END 2019-09-12 15:00 | DRG 698 ==
LOC: ERS 14:49 → T4-B 21:22 → 2NO 09-09 22:29
PROVIDERS: ADMIT Internal Medicine; ATTEND Internal Medicine
PROC: 02HV33Z Insertion of Infusion Device into Superior Vena Cava, Percutaneous Approach (ICD-10-PCS; principal; 2019-09-09)
PROC: B548ZZA Ultrasonography of Superior Vena Cava, Guidance (ICD-10-PCS; 2019-09-09)
DX: T83.511A Infection and inflammatory reaction due to indwelling urethral catheter, initial encounter (principal); A41.51 Sepsis due to Escherichia coli [E. coli]; A41.52 Sepsis due to Pseudomonas; R65.20 Severe sepsis without septic shock; Z66 Do not resuscitate; I50.33 Acute on chronic diastolic (congestive) heart failure; N17.9 Acute kidney failure, unspecified; E87.2 Acidosis; E87.1 Hypo-osmolality and hyponatremia; N39.0 Urinary tract infection, site not specified; G35 Multiple sclerosis; E78.5 Hyperlipidemia, unspecified; Y84.6 Urinary catheterization as the cause of abnormal reaction of the patient, or of later complication, without mention of misadventure at the time of the procedure; G20 Parkinson's disease; E11.51 Type 2 diabetes mellitus with diabetic peripheral angiopathy without gangrene; J44.9 Chronic obstructive pulmonary disease, unspecified; E87.5 Hyperkalemia; E03.9 Hypothyroidism, unspecified; E87.6 Hypokalemia; E83.39 Other disorders of phosphorus metabolism; I11.0 Hypertensive heart disease with heart failure; E83.42 Hypomagnesemia; Z89.512 Acquired absence of left leg below knee; Z89.511 Acquired absence of right leg below knee; Z90.49 Acquired absence of other specified parts of digestive tract; Z88.5 Allergy status to narcotic agent; Z88.2 Allergy status to sulfonamides; Z88.8 Allergy status to other drugs, medicaments and biological substances; Z79.899 Other long term (current) drug therapy; Z79.84 Long term (current) use of oral hypoglycemic drugs; Z79.51 Long term (current) use of inhaled steroids
CPT/HCPCS: 36415; 36416; 36569; 70450; 71045; 74176; 80048; 80053; 80069; 80076; 80202; 81003; 81015; 82140; 82330; 82550; 82570; 82803; 83605; 83690; 83735; 83935; 84134; 84156; 84300; 84443; 84484; 84540; 85025; 85610; 87040; 87077; 87086; 87186; 87324; 87449; 93005; 93010; 94640; 96361; 96365; 96367; C1751; J0131; J0360; J0696; J1335; J1630; J1644; J2185; J2405; J2997; J3370; J3475; J3480; J3490; J7050; J7611; Q0163

== ENCOUNTER 2019-11-07 07:50 | Inpatient (IN) | payer MEDICARE, OTHER ==
--- NOTE | 2019-11-07 08:35 | RAD ---
RADIOGRAPH CHEST 1 VIEW: DATE: 11/07/2019 TIME: 8:00 AM HISTORY: 73-year-old female with dyspnea and productive cough, plus tachycardia and abnormal breath sounds, rh onchi. Hemoptysis.. COMPARISON: 09/09/2019 FINDINGS: Again noted is the somewhat elevated right hemidiaphragm. There is a patchy ill-defined area of incre ased attenuation in the right lower lung zone, new or larger than a minimal such density on the prior study. The lateral costophrenic angle on the right is no longer blunted indicating interval dec rease in size of right pleural effusion. The left-sided PICC has been removed. No cardiomegaly. Minimal blunting of left lateral costophrenic angle remains. No pulmonary edema. No pneumothorax. IMPRESSION: Small patchy opacity at right lower lung zone, nonspecific.
[2019-11-07 08:45] LABS: Hemoglobin 11.2 g/dL (12.0-16.0); Mean Corpuscular HGB CONC 31.9 g/dL (32.0-36.0); Mean Corpuscular Hemoglobin 27.6 pg (27.0-31.0); Mean Corpuscular Volume 86.6 fL (78.0-98.0); Mean Platelet Volume 7.6 fL (7.4-10.4); Platelet Count 578 thou/uL (130-400); RBC Distribution Width 13.3 % (11.5-14.5); Red Blood Cell (RBC) Count 4.07 mill/uL (4.20-5.40)
[2019-11-07] MEDS ORDERED: Albuterol Sulfate 2.5 mg/0.5 ml Neb ONE (08:50)
[2019-11-07 08:51] LABS: Eosinophils 5 % (0-10); Lymphocytes 14 % (21-51); MDiff Complete? YES; Monocytes 10 % (0-10); Neutrophil 71 % (42-75); Platelet Morphology Comment Appears Increased; White Blood Cell (WBC) Count 31.3 thou/uL (4.8-10.8)
[2019-11-07] MEDS ORDERED: Albuterol Sulfate 2.5 mg/3 ml Neb ONE (08:51)
[2019-11-07 09:09] LABS: ALT (SGPT) 32 U/L (8-55); AST (SGOT) 42 U/L (5-34); Albumin 3.1 g/dL (3.4-4.8); Alkaline Phosphatase 107 U/L (40-110); Anion Gap 16 mmol/L (10-20); BUN (Urea Nitrogen) 26 mg/dL (9.8-20.1); Bilirubin, Total Less than 0.2 mg/dL (0.2-1.2); Calc. Creatinine Clearance 0 mL/min (70-130); Calcium 8.6 mg/dL (7.8-10.44); Carbon Dioxide 24 mmol/L (23-31); Chloride 101 mmol/L (98-107); Estimated GFR-MDRD Greater than 90; Globulin 3.5 g/dL (2.4-3.5); Glucose 256 mg/dL (83-110); Potassium 4.7 mmol/L (3.5-5.1); Protein, Total 6.6 g/dL (6.0-8.3); Sodium 136 mmol/L (136-145)
[2019-11-07] MEDS ORDERED: Cefepime 2 GM in Sodium Chloride 0.9% 100 ML IVPB SCH (09:45)
[2019-11-07 09:52] LABS: Bacteria/HPF 4+ HPF (None Seen); Bilirubin Negative (Negative); Blood, Urine Negative (Negative); Clarity Turbid (Clear); Glucose, Urine (Dipstick) Normal (Negative); Leukocyte 500 Leu/uL (Negative); Nitrite 2+ (Negative); Protein, Urine (Dipstick) 20 mg/dL (Neg-Trace); Squamous Epithelial 0-3 HPF (0-3); Urobilinogen Normal mg/dL (Less than 2); WBC/HPF Greater than 50 HPF (0-3)
[2019-11-07 09:59] LABS: Yeast-Budding 1+ HPF (None Seen)
[2019-11-07] MEDS ORDERED: Cefepime 2 GM VIAL ONE (10:06)
[2019-11-07] MEDS ORDERED: Oseltamivir 75 MG CAP PO SCH (10:30)
[2019-11-07] MEDS ORDERED: Azithromycin 500 MG in Sodium Chloride 0.9% 250 ML 250 ML IVPB SCH (10:30)
[2019-11-07] MEDS ORDERED: Azithromycin 500 MG VIAL ONE (11:22)
[2019-11-07] MEDS ORDERED: Dextrose 50% Abboject 50 ML SYRINGE SLOW IVP PRN (15:09)
[2019-11-07] MEDS ORDERED: HumaLOG 300 UNITS/3 ML VIAL SC PRN ×2 (15:09)
[2019-11-07] MEDS ORDERED: Senokot S 8.6-50 MG TAB PO PRN (15:09)
[2019-11-07] MEDS ORDERED: cefTRIAXone\\ROCEPHIN 1 GM in Sodium Chloride 0.9% 100 ML IVPB SCH (15:09)
[2019-11-07] MEDS ORDERED: Bisacodyl 10 MG SUPP PR PRN (15:09)
[2019-11-07] MEDS ORDERED: Guaifenesin DM 100-10/5 ML UDCUP PO PRN (15:09)
[2019-11-07] MEDS ORDERED: Dextrose 5% in Water 1,000 ML IV PRN (15:09)
--- NOTE | 2019-11-07 15:34 | HP ---
REASON FOR ADMISSION: Influenza B infection, pneumonia, sepsis, asthma/COPD exacerbation. HISTORY OF PRESENTING ILLNESS: The patient gives history of having coughing spells this morning. Her oxygen saturations dropped at [facility] in [place]. The patient was sent to [facility] from where she was transferred here on a CPAP by EMS. On arrival here, the patient has had multiple nebulizations done, which have improved her oxygenation now. Currently, she is on nasal cannula. She tested positive for influenza B here. The patient does not recall having a flu shot, but she thinks she has had the pneumococcal shot. Currently, she is not in any distress. She is sweating at present. No chest pain or palpitation. Her family is by her bedside. PAST MEDICAL AND SURGICAL HISTORY: History of multiple sclerosis with severe disability. She has bilateral above-knee amputations with very minimal motor function in the right upper extremity. She moves her left upper extremity but has lot of shaking. She is a care home resident. Hypertension; diabetes mellitus, type 2; Parkinson disease; hypothyroidism; history of asthma; coronary artery disease; chronic bedbound state; cholecystectomy; appendectomy; left hand surgery; and right ear surgery. CURRENT MEDICATIONS: The patient is on multiple medications including; 1. Baclofen 10 mg p.o. 3 times daily for MS-related spasms. 2. Citalopram 20 mg daily. 3. Atrovent inhaler 3 times daily. 4. Atorvastatin 40 mg daily. 5. Lisinopril 40 mg every noon. 6. Melatonin 3 mg p.o. at bedtime. 7. Metformin 500 mg p.o. twice daily. 8. Mucinex extended release 1200 mg twice daily. 9. Procardia XL 120 mg p.o. daily. 10. Protonix 20 mg daily. 11. Primidone 100 mg p.o. 3 times daily. 12. Pro-Stat 30 mL p.o. twice daily. 13. Florastor 250 mg p.o. daily. 14. Clonidine weekly transdermal patch 0.2 mg. 15. Copaxone 20 mg on Monday, Monday, Monday, , and Monday for MS. 16. Colace 100 mg twice daily. 17. Aspirin 81 mg daily. 18. Ferrous sulfate 325 mg twice daily. 19. Imdur extended release 60 mg daily. 20. Labetalol 200 mg p.o. 3 times daily. 21. Lasix 20 mg p.o. daily. 22. Singulair 10 mg daily. 23. Multivitamin one tablet once daily. 24. Trazodone 100 mg p.o. at bedtime. 25. Vitamin C 500 mg p.o. daily. 26. Vitamin D3 of 5000 units p.o. daily. 27. Zinc 220 mg p.o. daily. PERSONAL HISTORY: The patient does not abuse alcohol or drugs. No history of smoking. She is currently at [facility] resident at [place]. FAMILY HISTORY: Positive for diabetes and coronary artery disease. ALLERGIES: TO FLAGYL, MORPHINE, AND SULFA. REVIEW OF SYSTEMS: CONSTITUTIONAL: Negative for weight loss or gain, ability to conduct usual activities. SKIN: Negative for rash, itching. EYES: Negative for double vision, pain. ENT/MOUTH: Negative for nose bleeding, neck stiffness, pain, tenderness. CARDIOVASCULAR: Negative for palpitations, dyspnea on exertion, orthopnea. RESPIRATORY: Negative for shortness of breath, wheezing, cough, hemoptysis, fever or night sweats. GASTROINTESTINAL: Negative for poor appetite, abdominal pain, heartburn, nausea , vomiting, constipation, or diarrhea. GENITOURINARY: Negative for urgency, frequency, dysuria, nocturia. MUSCULOSKELETAL: Negative for pain, swelling. NEUROLOGIC/PSYCHIATRIC: Negative for anxiety, depression. ALLERGY/IMMUNOLOGIC: Negative for skin rash, bleeding tendency. CODE STATUS: The patient is a do not attempt to resuscitate. This was confirmed with the patient and her family at bedside. PHYSICAL EXAMINATION: GENERAL: The patient is a 73-year-old female, who is currently not in any acute distress. VITAL SIGNS: Blood pressure 130/74, pulse 120 per minute, respiratory rate 20 per minute, temperature 97.2 degrees Fahrenheit, and saturating 100% on room air. NECK: Supple. No elevated JVD. HEENT: Eyes; extraocular muscles intact. Pupils reacting to light. Oral cavity, mucous membranes are dry. No exudates or congestion. CARDIOVASCULAR SYSTEM: S1 and S2 heard. Tachycardic. RESPIRATORY SYSTEM: Air entry 1+ bilateral. Scattered rhonchi plus bilateral. ABDOMEN: Soft. Bowel sounds heard. No tenderness, rigidity, or guarding. EXTREMITIES: The patient has bilateral above-knee amputations. Bilateral upper extremities, peripheral pulses are 1+ in the upper extremities. No ischemic ulcers or gangrene seen. CENTRAL NERVOUS SYSTEM: The patient essentially has functional quadriplegia with barely moving her left upper extremity. No new gross focal deficits noted. The patient has underlying multiple sclerosis, which likely is progressive disease. PSYCHIATRIC SYSTEM: No obvious hallucinations or delusions. LABORATORY DATA: White count of 13, H and H of 11 and 35, and platelet count 578 with 71% neutrophils, 14% lymphocytes, 10% monocytes. MCV is 86. BUN 26, creatinine 0.6, serum glucose 256, lactic acid 1.3, AST 42, ALT 32, and albumin is 3.1. UA is positive for UTI. Influenza B antigen is positive on the nasal swab. Chest x-ray done shows small patchy opacity in the right lower lung zone. EKG done shows sinus tach at 124 beats per minute. There is Q-wave seen in V1, V2, V3, and ST depressions in the lateral leads. CLINICAL IMPRESSION AND PLAN: The patient will be admitted to medical floor for sepsis, influenza B infection, pneumonia, urinary tract infection, acute respiratory failure with hypoxia on arrival, resolving. The patient will be on DuoNeb q.6 hourly. She will be on cefepime, Levaquin. Blood cultures have been obtained in the ER. We will obtain urine and sputum cultures as well. Tamiflu 75 mg twice daily. The patient is essentially immunosuppressed with her chronic multiple sclerosis. In view of this, we will obtain consultation with Dr. Hui. She will be gently hydrated with normal saline at 100 mL per hour. We will also place her on steroids in view of underlying asthma, current mild flare-up with influenza infection and pneumonia. We will continue her on metformin, primidone, ropinirole, trazodone, baclofen, Synthroid, labetalol, Imdur, Copaxone subcu daily Monday to Monday, citalopram, clonidine transdermal patch, Lipitor, and aspirin as before. Job ID: [id number] [facility]
[2019-11-07] MEDS: Sodium Chloride 0.9% 1,000 ML IV SCH (17:31)
[2019-11-07] MEDS: metFORMIN 500 MG TAB PO SCH (17:40)
[2019-11-07] MEDS: Ferrous Sulfate 325 MG TAB PO SCH (17:40)
[2019-11-07] MEDS: Mometasone 200 MCG HFA INHALER INH SCH (18:44)
[2019-11-07] MEDS: traZODone HCl 50 MG TAB PO SCH (20:48)
[2019-11-07] MEDS: Primidone 50 MG TAB PO SCH (20:49)
[2019-11-07] MEDS: Baclofen 10 MG TAB PO SCH (20:49)
[2019-11-07] MEDS: rOPINIRole HCl 2 MG TAB PO SCH (20:49)
[2019-11-07] MEDS: Labetalol 100 MG TAB PO SCH (20:49)
[2019-11-07] MEDS: Cefepime 1 GM in Sodium Chloride 0.9% 100 ML IVPB SCH (20:50)
[2019-11-07] MEDS: Docusate 100 MG CAP PO SCH (20:51)
[2019-11-07] MEDS: Melatonin 3 MG TAB PO SCH (20:51)
[2019-11-07] MEDS: Acetaminophen 325 MG TAB PO PRN (20:52)
[2019-11-07] MEDS: Oseltamivir 75 MG CAP PO SCH (20:52)
[2019-11-07] MEDS ORDERED: Famotidine 20 MG TAB PO SCH (21:00)
[2019-11-07] MEDS: methylPREDNISolone Sod Succ 40 MG VIAL IVP SCH (22:59)
[2019-11-08] MEDS: Levothyroxine Sodium 50 MCG TAB PO SCH (05:33)
[2019-11-08] MEDS: methylPREDNISolone Sod Succ 40 MG VIAL IVP SCH ×3 (05:33→21:06)
[2019-11-08] MEDS: Sodium Chloride 0.9% 1,000 ML IV SCH ×3 (05:33→17:38)
[2019-11-08 06:59] LABS: Hemoglobin 10.1 g/dL (12.0-16.0); Mean Corpuscular HGB CONC 31.2 g/dL (32.0-36.0); Mean Corpuscular Hemoglobin 27.4 pg (27.0-31.0); Mean Corpuscular Volume 87.7 fL (78.0-98.0); Mean Platelet Volume 7.9 fL (7.4-10.4); Platelet Count 469 thou/uL (130-400); RBC Distribution Width 13.5 % (11.5-14.5); Red Blood Cell (RBC) Count 3.69 mill/uL (4.20-5.40)
[2019-11-08 07:16] LABS: Anion Gap 15 mmol/L (10-20); BUN (Urea Nitrogen) 17 mg/dL (9.8-20.1); Calc. Creatinine Clearance 124 mL/min (70-130); Calcium 7.8 mg/dL (7.8-10.44); Carbon Dioxide 18 mmol/L (23-31); Chloride 105 mmol/L (98-107); Estimated GFR-MDRD Greater than 90; Glucose 111 mg/dL (83-110); Potassium 4.3 mmol/L (3.5-5.1); Sodium 134 mmol/L (136-145)
[2019-11-08] MEDS: Mometasone 200 MCG HFA INHALER INH SCH ×2 (07:34→19:01)
[2019-11-08 07:39] LABS: #Basophils 0.1 thou/uL (0.0-0.2); #Eosinphils 0.2 thou/uL (0.0-0.7); #Lymphocytes 2.4 thou/uL (1.20-3.40); #Monocytes 0.9 thou/uL (0.11-0.59); #Neutrophils 11.4 thou/uL (1.40-6.50); %Basophils 0.5 % (0.0-1.0); %Eosinophils 1.5 % (0.0-10.0); %Lymphocytes 15.9 % (21.0-51.0); %Monocytes 6.1 % (0.0-10.0); Hypochromia SLIGHT = 6-15 cells (100X) (0-5/hpf); MDiff Complete? YES; Platelet Morphology Comment Appears Increased; Polychromasia SLIGHT = 2-3 cells (100X) (0-2/hpf)
[2019-11-08] MEDS: Ferrous Sulfate 325 MG TAB PO SCH ×2 (08:45→17:32)
[2019-11-08] MEDS: Enoxaparin Sodium 40 MG/0.4 ML SYRINGE SC SCH (08:45)
[2019-11-08] MEDS: Aspirin 81 mg Enteric Coated Tablet PO SCH (08:46)
[2019-11-08] MEDS: Oseltamivir 75 MG CAP PO SCH ×2 (08:46→21:11)
[2019-11-08] MEDS: Citalopram 20 MG TAB PO SCH (08:46)
[2019-11-08] MEDS: Docusate 100 MG CAP PO SCH ×2 (08:46→21:07)
[2019-11-08] MEDS: Labetalol 100 MG TAB PO SCH ×3 (08:46→21:08)
[2019-11-08] MEDS: Baclofen 10 MG TAB PO SCH ×3 (08:46→21:07)
[2019-11-08] MEDS: metFORMIN 500 MG TAB PO SCH ×2 (08:46→17:32)
[2019-11-08] MEDS: Lisinopril 20 MG TAB PO SCH (08:46)
[2019-11-08] MEDS: Saccharomyces boulardii 250 MG CAP PO SCH (08:46)
[2019-11-08] MEDS: Primidone 50 MG TAB PO SCH ×3 (08:47→21:12)
[2019-11-08] MEDS: Cefepime 1 GM in Sodium Chloride 0.9% 100 ML IVPB SCH ×2 (09:00→21:09)
[2019-11-08] MEDS ORDERED: Glatiramer Acetate [Copaxone] 40 MG SC SCH (09:00)
[2019-11-08] MEDS: rOPINIRole HCl 2 MG TAB PO SCH ×3 (10:33→21:12)
[2019-11-08 15:17] VITALS: BMI 30.9
[2019-11-08] MEDS: Ondansetron PF 4 MG/2 ML Vial IVP PRN (15:50)
[2019-11-08] MEDS: Acetaminophen 325 MG TAB PO PRN (15:51)
--- NOTE | 2019-11-08 16:15 | PDOC.HOSPP ---
- Subjective Encounter Date: 11/08/19 Encounter Time: 07:20 Subjective: breathing better, no sob, feels better, still sweating off and on but no fever - Objective Vital Signs & Weight: Vital Signs (12 hours) Temp Pulse Resp BP BP BP Pulse Ox 11/08/19 14:31 145/84 H 11/08/19 14:29 108 H 11/08/19 11:57 98.1 F 108 H 18 123/75 95 11/08/19 08:46 117 H 146/93 H 11/08/19 08:00 98.1 F 117 H 16 162/84 H 92 L 11/08/19 07:36 118 H 16 93 L 11/08/19 07:34 118 H 18 93 L 11/08/19 04:43 98.0 F 113 H 21 H 136/80 96 Weight Admit Weight 191 lb 12.835 oz Weight 191 lb 12.835 oz I&O: 11/07/19 11/08/19 11/09/19 06:59 06:59 06:59 Intake Total 1700 Balance 1700 Result Diagrams: 11/08/19 06:13 11/08/19 06:13 Additional Labs: Accuchecks 11/08/19 11/08/19 11/07/19 12:00 04:44 20:32 POC Glucose 126 H 135 H 164 H 11/07/19 17:34 POC Glucose 124 H Hospitalist ROS - Medication Medications: Active Medications Generic Name Dose Route Start Last Admin Trade Name Freq PRN Reason Stop Dose Admin Acetaminophen 650 mg 11/07/19 15:09 11/08/19 15:51 Tylenol PO 650 mg Q4H PRN Administration Headache/Fever/Mild Pain (1-3) Albuterol/Ipratropium 3 ml 11/07/19 19:00 11/08/19 14:42 Duoneb NEB Not Given [id number] TARAN Aspirin 81 mg 11/08/19 09:00 11/08/19 08:46 Ecotrin PO 81 mg DAILY TARAN Administration Baclofen 10 mg 11/07/19 21:00 11/08/19 14:29 Lioresal PO 10 mg TID TARAN Administration Citalopram Hydrobromide 20 mg 11/08/19 09:00 11/08/19 08:46 Celexa PO 20 mg DAILY TARAN Administration Docusate Sodium 100 mg 11/07/19 21:00 11/08/19 08:46 Colace PO 100 mg BID TARAN Administration Enoxaparin Sodium 40 mg 11/08/19 09:00 11/08/19 08:45 Lovenox SC 40 mg 0900 TARAN Administration Ferrous Sulfate 325 mg 11/07/19 17:00 11/08/19 08:45 Feosol PO 325 mg BID-WM TARAN Administration Guaifenesin/Dextromethorphan 15 ml 11/07/19 15:09 11/08/19 11:36 Robitussin Dm PO 15 ml Q4H PRN Administration Cough Levofloxacin 500 mg/ Device 100 mls @ 100 mls/hr 11/07/19 17:00 11/07/19 17: 32 IVPB 100 mls 1700 TARAN Administration Sodium Chloride 1,000 mls @ 100 mls/hr 11/07/19 15:09 11/08/19 13:05 Normal Saline 0.9% IV Not Given .Q10H TARAN Cefepime HCl 1 gm/ Sodium 100 mls @ 200 mls/hr 11/07/19 21:00 11/08/19 09:00 Chloride IVPB 100 mls Q12HR TARAN Administration Isosorbide Mononitrate 60 mg 11/08/19 09:00 11/08/19 08:45 Imdur PO 60 mg DAILY TARAN Administration Labetalol HCl 200 mg 11/07/19 21:00 11/08/19 14:29 Normodyne PO 200 mg TID TARAN Administration Levothyroxine Sodium 50 mcg 11/08/19 06:00 11/08/19 05:33 Synthroid PO 50 mcg 0600 TARAN Administration Lisinopril 40 mg 11/08/19 09:00 11/08/19 08:46 Zestril PO 40 mg DAILY TARAN Administration Melatonin 3 mg 11/07/19 21:00 11/07/19 20:51 Melatonin PO 3 mg HS TARAN Administration Metformin HCl 500 mg 11/07/19 17:00 11/08/19 08:46 Glucophage PO 500 mg BID-WM TARAN Administration Methylprednisolone Sodium Succinate 20 mg 11/07/19 22:00 11/08/19 14:29 Solu-Medrol IVP 20 mg Q8HR TARAN Administration Mometasone Furoate 1 puff 11/07/19 18:30 11/08/19 07:34 Asmanex Hfa 200 Mcg INH 1 puff BID-RT TARAN Administration Ondansetron HCl 4 mg 11/07/19 15:09 11/08/19 15:50 Zofran IVP 4 mg Q6H PRN Administration Nausea/Vomiting Oseltamivir Phosphate 75 mg 11/07/19 21:00 11/08/19 08:46 Tamiflu PO 11/12/19 09:01 75 mg BID TARAN Administration Pantoprazole Sodium 40 mg 11/08/19 09:00 11/08/19 08:46 Protonix PO 40 mg DAILY TARAN Administration Primidone 100 mg 11/07/19 21:00 11/08/19 14:29 Mysoline PO 100 mg TID TARAN Administration Ropinirole HCl 2 mg 11/07/19 21:00 11/08/19 15:51 Requip PO 2 mg TID TARAN Administration Saccharomyces Boulardii 250 mg 11/08/19 09:00 11/08/19 08:46 Florastor PO 250 mg DAILY TARAN Administration Trazodone HCl 100 mg 11/07/19 21:00 11/07/19 20:48 Desyrel PO 100 mg HS TARAN Administration - Exam General Appearance: awake alert Eye: PERRL, anicteric sclera ENT: no oropharyngeal lesions, moist mucosa Neck: supple, no JVD Heart: RRR, no murmur Respiratory: no wheezes, no rales, rhonchi Gastrointestinal: soft, non-tender, non-distended, normal bowel sounds Extremities: no edema Extremities - other findings: b/l aka Neurological: cranial nerve grossly intact, no focal deficits Psychiatric: normal affect, A&O x 3 Hosp A/P (1) PNA (pneumonia) Code(s): J18.9 - PNEUMONIA, UNSPECIFIED ORGANISM Status: Acute Qualifiers: Pneumonia type: due to unspecified organism (2) Influenza B Code(s): J10.1 - FLU DUE TO OTH IDENT INFLUENZA VIRUS W OTH RESP MANIFEST Status: Acute (3) Sepsis with acute organ dysfunction Code(s): A41.9 - SEPSIS, UNSPECIFIED ORGANISM; R65.20 - SEVERE SEPSIS WITHOUT SEPTIC SHOCK Status: Acute Qualifiers: Sepsis type: sepsis due to unspecified organism (4) Anxiety and depression Code(s): F41.9 - ANXIETY DISORDER, UNSPECIFIED; F32.9 - MAJOR DEPRESSIVE DISORDER, SINGLE EPISODE, UNSPECIFIED Status: Chronic (5) Diabetes type 2, controlled Code(s): E11.9 - TYPE 2 DIABETES MELLITUS WITHOUT COMPLICATIONS Status: Chronic Qualifiers: Diabetes mellitus prison insulin use: without intermission coordinator use (6) Hypertension Code(s): I10 - ESSENTIAL (PRIMARY) HYPERTENSION Status: Chronic Qualifiers: Hypertension type: essential hypertension Qualified Code(s): I10 - Essential (primary) hypertension (7) Hypothyroidism Code(s): E03.9 - HYPOTHYROIDISM, UNSPECIFIED Status: Chronic Qualifiers: Hypothyroidism type: unspecified Qualified Code(s): E03.9 - Hypothyroidism , unspecified (8) Multiple sclerosis Code(s): G35 - MULTIPLE SCLEROSIS Status: Chronic (9) Obesity (BMI 30.0-34.9) Code(s): E66.9 - OBESITY, UNSPECIFIED Status: Chronic (10) Parkinson disease Code(s): G20 - PARKINSON'S DISEASE Status: Chronic - Plan is on cefipime and levaquin, prelim blood cs are -ve, may switch to omnicef in am if stable wbc down to 15k from 30k continue asp, lipitor, clonidine tts, lisinopril, imdur, labetalol, baclofen, celexa, synthroid, metformin will switch her solumedrol to prednisone x 2 days (asthma exac sec to influenza and pna) hemostable pt is a [facility] resident
[2019-11-08] MEDS: traZODone HCl 50 MG TAB PO SCH (21:07)
[2019-11-08] MEDS: Atorvastatin Calcium 40 MG TAB PO SCH (21:07)
[2019-11-08] MEDS: Melatonin 3 MG TAB PO SCH (21:08)
[2019-11-09] MEDS: Ondansetron PF 4 MG/2 ML Vial IVP PRN ×3 (00:01→15:49)
[2019-11-09] MEDS: Levothyroxine Sodium 50 MCG TAB PO SCH (05:15)
[2019-11-09] MEDS: methylPREDNISolone Sod Succ 40 MG VIAL IVP SCH ×3 (05:15→21:57)
[2019-11-09] MEDS: Mometasone 200 MCG HFA INHALER INH SCH ×2 (06:30→19:37)
[2019-11-09] MEDS: metFORMIN 500 MG TAB PO SCH ×2 (08:00→17:00)
[2019-11-09] MEDS: Ferrous Sulfate 325 MG TAB PO SCH ×2 (08:00→17:00)
[2019-11-09] MEDS ORDERED: Promethazine HCl 25 MG/ML VIAL SLOW IVP SCH (08:45)
[2019-11-09] MEDS: Primidone 50 MG TAB PO SCH ×3 (09:00→21:53)
[2019-11-09] MEDS: Baclofen 10 MG TAB PO SCH ×3 (09:00→21:53)
[2019-11-09] MEDS: Oseltamivir 75 MG CAP PO SCH ×2 (09:00→22:22)
[2019-11-09] MEDS: Saccharomyces boulardii 250 MG CAP PO SCH (09:00)
[2019-11-09] MEDS: Labetalol 100 MG TAB PO SCH ×3 (09:00→22:22)
[2019-11-09] MEDS: Aspirin 81 mg Enteric Coated Tablet PO SCH (09:00)
[2019-11-09] MEDS: Citalopram 20 MG TAB PO SCH (09:00)
[2019-11-09] MEDS: rOPINIRole HCl 2 MG TAB PO SCH ×3 (09:00→21:53)
[2019-11-09] MEDS: Lisinopril 20 MG TAB PO SCH (09:00)
[2019-11-09] MEDS: Cefepime 1 GM in Sodium Chloride 0.9% 100 ML IVPB SCH ×2 (09:04→21:13)
[2019-11-09 09:11] LABS: Actual Bicarbonate (HCO3a) 24.4 mEq/L (22-28); Base Excess (BEa) -1.3 mEq/L (-2.0 to +3.0); CO2 Tension 44.9 mmHg (35.0-45.0); Calcium, Ionized 1.13 mmol/L (1.12-1.30); Carboxyhemoglobin (COHb) 0.6 gm% (0.0-3.0); Hemoglobin (Hb) 11.1 g/dL (12.0-16.0); Potassium - ABG Lab 3.88 mmol/L (3.70-5.30); pH, Arterial 7.35 (7.35-7.45)
[2019-11-09 09:16] LABS: ALV-art Gradient 107.035 (0-20); Puncture Site RRA
--- NOTE | 2019-11-09 09:51 | PRG ---
DATE OF SERVICE: 11/09/2019 SUBJECTIVE: I was notified this morning the patient had some nausea and vomiting. Earlier this morning, she received Zofran and continued to have vomiting. She was given 6.25 mg of Phenergan. Promptly thereafter notified by nursing, the patient was tachycardic, hypoxic and tachypneic, presented promptly to the room to evaluate the patient. She has family in the room who say actually after the Phenergan settled down a little bit, her O2 saturations were actually slightly better. She was on 3 L and her oxygen saturation was still at 89%. The patient is tachypneic. Says she is having a bit of a hard time breathing. Indicates that she thought she was short of breath before the vomiting started. OBJECTIVE: VITAL SIGNS: Temperature was 97.9, pulse 128, respirations 28, O2 saturation was 87% on 3 L, BP was 158/104. GENERAL APPEARANCE: Age-appropriate female, extremely pale. She talks but keeps her eyes closed. She is otherwise fairly appropriate. HEART: Tachycardic without murmurs heard. LUNGS: Tight with expiratory wheezes and a bit of prolonged expiratory phase. No significant rales are noted. ABDOMEN: Soft, nontender, and nondistended. EXTREMITIES: She has BKA. LABORATORY DATA: Stat labs include ABG pH 7.35, pCO2 of 45, PO2 is 65, and bicarb 24. EKG appears to show sinus tach at 130 with generally normal axis and a wandering baseline, no evidence of acute ischemia. IMPRESSION AND PLAN: 1. Acute hypoxic respiratory failure. I have increased her to 4 L, getting a stat chest x-ray, stat nebulizer treatment and will be moving the patient to the [facility]. She is a DNAR and will not be intubated. Therefore, we will not consider ICU at this time. Also ordering stat labs including CBC and CMP. Chest x-ray is also pending. 2. Influenza. Continuing with Tamiflu as tolerated now that she is having the nausea, could potentially be contributing to her nausea symptoms. 3. Pneumonia in the setting of the influenza. Continuing with cefepime and Levaquin. 4. Sepsis related to flu and pneumonia. White count had improved significantly yesterday. She is receiving some steroids. Renal function appears to be normal. 5. Diabetes mellitus, controlled. 6. Hypertension, blood pressure is currently high, but she is having a bit of stress. 7. Hypothyroidism, stable. 8. History of multiple sclerosis, chronic. 9. Obesity, chronic. 10. Parkinson disease, chronic. 11. Anxiety, depression. Continue with the Celexa. Total critical care time was 38 minutes. Job ID: [id number]
--- NOTE | 2019-11-09 09:56 | RAD ---
CHEST 1 VIEW: HISTORY: Shortness of breath. COMPARISON: Radiograph 2 days prior. FINDINGS: Lungs are hypoinflated. Layering effusions. There are bibasilar atelectatic changes. No pneumothorax. Mild vascular calcifications of the aorta. No acute osseous abnormality. IMPRESSION: Layering small to moderate effusions with compressive atelectasis in both lower lobes. POS: CET
[2019-11-09] MEDS: Enoxaparin Sodium 40 MG/0.4 ML SYRINGE SC SCH (10:00)
[2019-11-09 10:49] LABS: Hemoglobin 10.3 g/dL (12.0-16.0); Mean Corpuscular HGB CONC 31.8 g/dL (32.0-36.0); Mean Corpuscular Hemoglobin 27.9 pg (27.0-31.0); Mean Corpuscular Volume 87.9 fL (78.0-98.0); Mean Platelet Volume 7.6 fL (7.4-10.4); Platelet Count 566 thou/uL (130-400); RBC Distribution Width 13.7 % (11.5-14.5); White Blood Cell (WBC) Count 19.6 thou/uL (4.8-10.8)
[2019-11-09] MEDS: Sodium Chloride 0.9% 1,000 ML IV SCH ×2 (11:08→21:55)
[2019-11-09 11:09] LABS: Burr Cells SLIGHT = 2-5 cells (100X) (0-1/hpf); Hypochromia SLIGHT = 6-15 cells (100X) (0-5/hpf); Large Platelets SLIGHT; Lymphocytes 2 % (21-51); MDiff Complete? YES; Monocytes 3 % (0-10); Neutrophil 95 % (42-75); Platelet Morphology Comment Appears Increased
[2019-11-09 11:10] LABS: ALT (SGPT) 29 U/L (8-55); AST (SGOT) 50 U/L (5-34); Albumin 3.1 g/dL (3.4-4.8); Alkaline Phosphatase 98 U/L (40-110); Anion Gap 17 mmol/L (10-20); BUN (Urea Nitrogen) 20 mg/dL (9.8-20.1); Bilirubin, Total Less than 0.2 mg/dL (0.2-1.2); Calc. Creatinine Clearance 103 mL/min (70-130); Carbon Dioxide 20 mmol/L (23-31); Chloride 107 mmol/L (98-107); Estimated GFR-MDRD 89; Globulin 3.4 g/dL (2.4-3.5); Glucose 201 mg/dL (83-110); Potassium 4.2 mmol/L (3.5-5.1); Protein, Total 6.5 g/dL (6.0-8.3); Sodium 140 mmol/L (136-145)
--- NOTE | 2019-11-09 12:08 | CON ---
DATE OF CONSULTATION: 11/09/2019 This encompassed 50 minutes of time, of that time, greater than 50% time was spent on direct patient care. CONSULTING PHYSICIAN: Melody Sims. REASON FOR CONSULTATION: ICU management. HISTORY OF PRESENT ILLNESS: This is a 73-year-old female, who has been transferred down from the floor because of the development of respiratory distress earlier this morning. Apparently, she had, had some nausea and vomiting and became tachycardic and hypoxic afterwards. Although, she is DNR, she was brought to the CCU for the purpose of administering BiPAP. So far, she has done much better on the BiPAP and her heart rate has come down and she looks much more comfortable according to the nursing staff. PAST MEDICAL HISTORY: 1. Peripheral vascular disease with bilateral [id number] amputations. 2. Asthma. 3. Multiple sclerosis. 4. Hypertension. 5. Diabetes mellitus, type 2. 6. Parkinson's disease. 7. Hypothyroidism. 8. Coronary artery disease. 9. Decubitus ulcer. 10. Cholecystectomy. 11. Appendectomy. 12. Left hand surgery. 13. Right ear surgery. MEDICATIONS: Prior to admission; 1. Baclofen. 2. Citalopram. 3. Atrovent. 4. Atorvastatin. 5. Lisinopril. 6. Melatonin. 7. Metformin. 8. Mucinex. 9. Procardia. 10. Protonix. 11. Primidone. 12. ProStat. 13. Florastor. 14. Clonidine. 15. Copaxone. 16. Colace. 17. Aspirin. 18. Iron sulfate. 19. Imdur. 20. Labetalol. 21. Lasix. 22. Singulair. 23. Multivitamin. 24. Trazodone. 25. Vitamin C. 26. Vitamin D3. 27. Zinc 220. Current inpatient medications; 1. Tylenol. 2. DuoNeb. 3. Ecotrin. 4. Lipitor. 5. Baclofen. 6. Cefepime. 7. Dulcolax. 8. Citalopram. 9. Clonidine. 10. Docusate. 11. Enoxaparin. 12. Iron sulfate. 13. Copaxone. 14. Robitussin DM. 15. Lispro insulin. 16. Imdur. 17. Labetalol. 18. Levofloxacin. 19. Levothyroxine. 20. Zestril. 21. Melatonin. 22. Metformin. 23. Methylprednisolone. 24. Asmanex. 25. Tamiflu. 26. Protonix. 27. Phenergan. 28. Requip. 29. Florastor. 30. Senokot. 31. Desyrel. SOCIAL HISTORY: Quit smoking about 40 years ago. Does not consume alcohol. Does not use illicit drugs. Apparently stays in a retirement. FAMILY MEDICAL HISTORY: Remarkable for diabetes and coronary artery disease. REVIEW OF SYSTEMS: The patient is currently somnolent, receiving Phenergan. I cannot obtain review of systems. ALLERGIES: METRONIDAZOLE, MORPHINE, AND SULFA. PHYSICAL EXAMINATION: VITAL SIGNS: Heart rate 107, blood pressure 93/56, O2 saturation 100%, respiratory rate 27, and temperature 97.9. GENERAL: The patient is arousable, but looks comfortable on the BiPAP. HEENT: Pupils react. Sclerae are anicteric. Oropharynx dry. NECK: No adenopathy or JVD. LUNGS: Coarse breath sounds bilaterally. No wheezing. CARDIOVASCULAR: S1 and S2. Slightly tachycardic. ABDOMEN: Soft. She has an old right quadrant cholecystectomy scar. She has a fairly substantial pressure ulcer in her sacral region. She has bilateral [id number] amputations. LABORATORY DATA: Sodium 134, potassium 4.3, chloride 105, CO2 of 18, BUN 17, creatinine 0.5, and glucose 111. PH of 7.35, pCO2 of 45, and pO2 of 65. White blood cell count 15, hematocrit 32, and platelet count 469. IMAGING DATA: Chest x-ray demonstrates blunting of both costophrenic angles with evidence of diaphragmatic elevation on the right and perhaps some infiltrative changes bilaterally. MICROBIOLOGY: She was positive for influenza type B. ASSESSMENT: 1. Acute hypoxic respiratory failure, probably related to aspiration given that she was having nausea and vomiting earlier today. 2. Type B flu. 3. Multiple medical problems and disabilities as listed above. PLAN: The patient is doing well on BiPAP. She will continue on antibiotics and the Tamiflu. She will receive nebulization treatments and steroids. Her prognosis is very guarded at this time. She is DNR. Job ID: [id number]
[2019-11-09] MEDS: cloNIDine 0.2mg/24 Hour PATCH TD SCH ×2 (14:08→14:15)
[2019-11-09] MEDS: Docusate 100 MG CAP PO SCH ×2 (14:08→21:53)
--- NOTE | 2019-11-09 14:46 | CON ---
DATE OF CONSULTATION: 11/09/2019 REASON FOR CONSULTATION: Influenza B infection, possible superimposed bacterial infection. HISTORY OF PRESENT ILLNESS: A 73-year-old patient, who has a history of type 2 diabetes and longstanding multiple sclerosis, who has been treated with Copaxone for the past 15 years, has also developed complications in lower extremities which culminated in bilateral above-knee amputations, and she has had 3 admissions over the past 2 years for urinary tract infection and COPD exacerbation. This time, she presents with worsening dyspnea. She was brought to the emergency room from half-way for tachycardia and dyspnea. She was given inhalers. Her initial O2 saturations were 88% on nasal cannula. Had some vomiting episodes. Her cognitive function has deteriorated over the past year, and she was obtunded when she came in. She has a chronic indwelling Gonsalez catheter to manage neurogenic bladder. The initial findings included a pulse of 128, O2 saturation 100%, temperature 97.2. She did not appear in acute distress. She was alert and described as oriented x3. She had diffuse wheezing in both right and left hemithorax. The abdominal exam was normal. Heart examination showed tachycardia, but no murmurs. There was no evidence of any skin area of breakdown. Initial findings also included sodium 136, creatinine 0.63, glucose 256, AST 42, ALT 32, albumin 3.1, and pH 7.35, pCO2 of 44, pO2 of 65. Initial white cell count 31.3, hemoglobin 11, platelets 578 with 14% lymphocytes, 71% neutrophils, 10% monocytes. Urinalysis showed greater than 50 wbc's, and thus far, we have a positive influenza B antigen test, negative A. Two sets of blood cultures thus far no growth. Urine culture with mixed organisms, yet to be identified and susceptibility tested. The patient had admit chest x-ray, which showed patchy opacity in right lower lung zone. Followup imaging study showed [id number] effusions with compressive atelectasis in both lower lobes. Currently, Ms. Hester has a BiPAP in place. She opens her eyes intermittently, but it was difficult to interact with the patient. Could not have her follow commands. PAST MEDICAL HISTORY: Type 2 diabetes, hypothyroidism, multiple sclerosis, here it is listed Parkinson disease as well, coronary artery disease, hypertension, asthma/COPD, peripheral vascular disease with bilateral above-knee amputations, and osteomyelitis of feet. ALLERGIES: 1. METRONIDAZOLE. 2. MORPHINE. 4. SULFA DRUGS. SOCIAL HISTORY: Lives in a half-way in [place]. Never smoker. MEDICATIONS: 1. Tylenol. 2. DuoNeb. 3. Ecotrin. 4. Lipitor. 5. Lioresal. 6. Dulcolax. 7. Cefepime. 8. Celexa. 9. Catapres. 10. Colace. 11. Lovenox. 12. Feosol. 13. Glucagon. 14. Insulin. 15. Imdur. 16. Normodyne. 17. Levofloxacin. 18. Synthroid. 19. Lisinopril. 20. Melatonin. 21. Glucophage. 22. Methylprednisolone. 23. Asmanex. 24. Zofran. 25. Tamiflu. 26. Protonix. 27. Copaxone. 28. Mysoline. 29. Requip. 30. Florastor. 31. Trazodone. PHYSICAL EXAMINATION: VITAL SIGNS: T-max 98.5, blood pressure 150/100, pulse is 99, respirations 22, O2 saturation 87% to 94%, FiO2 of 35. SKIN: Area of erythema and maceration of the skin around the perineal region and presacral area. That is shallow, irregular shaped, looked hard actually to stage this ulcer because the base is necrotic tissue, and it is basically unstageable at this point in time. It is a fairly small ulceration about 1 cm. She has a peripheral IV access and has a Gonsalez catheter. HEENT: Pupils are constricted. Sclerae are white. Dentures are in place. NECK: Without jugular vein distention. LUNGS: With scattered rhonchi and wheezing noted. Few crackles at the bases. HEART: S1 and S2. Regular rate. No S3 or S4. ABDOMEN: Moderately distended. No ascites. No bladder distention. No obvious guarding or organomegaly. EXTREMITIES: Bilateral AKAs with no skin breakdown. She is weak in the upper extremities. She is able to move hands and hard to touch. NEUROLOGIC: Her cognitive functions; she is quite drowsy and will open eyes, but does not establish eye contact. LABORATORY DATA: Followup labs: White cell count is at 19.6, hemoglobin 10.3, platelets 566 with 95% neutrophils. Creatinine 0.63 and sodium 140. ASSESSMENT: Type 2 diabetes; multiple sclerosis, on long-term Copaxone; bilateral above-knee amputations; influenza B infection; chronic indwelling Gonsalez catheterization with positive urine culture and abnormal urinalysis; and neutrophilia with a left shift. DISCUSSION: Differential diagnosis includes influenza B infection with possible superimposed bacterial infection in the respiratory tract area including the possibility of Staphylococcus aureus superinfection. She is on methylprednisone , which is probably related to the neutrophilia that we see at this point in time. She does not have band elevation, so I am not going to recommend any changes in the antimicrobial therapy now, specifically no need to add anti-MRSA therapy at this point in time. The Gonsalez catheterization will necessarily lead to abnormal urinalysis and positive cultures, so it is hard at this point in time to establish a precise relationship between the urinalysis findings and culture findings with the clinical presentation, but I think we are forced to treat this empirically. Job ID: [id number]
[2019-11-09] MEDS: Atorvastatin Calcium 40 MG TAB PO SCH (21:53)
[2019-11-09] MEDS: traZODone HCl 50 MG TAB PO SCH (21:53)
[2019-11-09] MEDS: Melatonin 3 MG TAB PO SCH (22:21)
[2019-11-10] MEDS: Acetaminophen 325 MG TAB PO PRN ×2 (00:42→05:49)
[2019-11-10] MEDS: methylPREDNISolone Sod Succ 40 MG VIAL IVP SCH ×3 (05:47→21:38)
[2019-11-10] MEDS: Sodium Chloride 0.9% 1,000 ML IV SCH ×2 (05:49→10:01)
[2019-11-10] MEDS: Levothyroxine Sodium 50 MCG TAB PO SCH (05:49)
[2019-11-10 06:13] LABS: #Lymphocytes 2.5 thou/uL (1.20-3.40); #Monocytes 1.1 thou/uL (0.11-0.59); #Neutrophils 13.9 thou/uL (1.40-6.50); %Basophils 0.2 % (0.0-1.0); %Eosinophils 0.2 % (0.0-10.0); %Monocytes 6.2 % (0.0-10.0); %Neutrophils 79.4 % (42.0-75.0); Hemoglobin 8.9 g/dL (12.0-16.0); Mean Corpuscular HGB CONC 31.3 g/dL (32.0-36.0); Mean Corpuscular Hemoglobin 27.6 pg (27.0-31.0); Mean Corpuscular Volume 88.1 fL (78.0-98.0); Mean Platelet Volume 7.6 fL (7.4-10.4); Platelet Count 411 thou/uL (130-400); RBC Distribution Width 13.6 % (11.5-14.5); Red Blood Cell (RBC) Count 3.22 mill/uL (4.20-5.40); White Blood Cell (WBC) Count 17.5 thou/uL (4.8-10.8)
[2019-11-10 06:27] LABS: Anion Gap 14 mmol/L (10-20); BUN (Urea Nitrogen) 20 mg/dL (9.8-20.1); Calc. Creatinine Clearance 128 mL/min (70-130); Calcium 7.5 mg/dL (7.8-10.44); Carbon Dioxide 20 mmol/L (23-31); Chloride 110 mmol/L (98-107); Estimated GFR-MDRD Greater than 90; Glucose 100 mg/dL (83-110); Potassium 3.7 mmol/L (3.5-5.1); Sodium 140 mmol/L (136-145)
[2019-11-10] MEDS: Mometasone 200 MCG HFA INHALER INH SCH ×2 (08:08→19:10)
[2019-11-10] MEDS: Cefepime 1 GM in Sodium Chloride 0.9% 100 ML IVPB SCH ×2 (08:59→21:37)
[2019-11-10] MEDS: Ondansetron PF 4 MG/2 ML Vial IVP PRN (08:59)
[2019-11-10] MEDS: Oseltamivir 75 MG CAP PO SCH ×3 (09:00→21:52)
[2019-11-10] MEDS: Lisinopril 20 MG TAB PO SCH (09:03)
[2019-11-10] MEDS: Citalopram 20 MG TAB PO SCH (09:03)
[2019-11-10] MEDS: Aspirin 81 mg Enteric Coated Tablet PO SCH (09:03)
[2019-11-10] MEDS: Enoxaparin Sodium 40 MG/0.4 ML SYRINGE SC SCH (09:03)
[2019-11-10] MEDS: Labetalol 100 MG TAB PO SCH ×3 (09:04→21:36)
[2019-11-10] MEDS: Baclofen 10 MG TAB PO SCH ×3 (09:04→21:37)
[2019-11-10] MEDS: Ferrous Sulfate 325 MG TAB PO SCH (09:04)
[2019-11-10] MEDS: Docusate 100 MG CAP PO SCH ×2 (09:05→21:36)
[2019-11-10] MEDS: Saccharomyces boulardii 250 MG CAP PO SCH (09:05)
[2019-11-10] MEDS: metFORMIN 500 MG TAB PO SCH (09:05)
[2019-11-10] MEDS: Primidone 50 MG TAB PO SCH ×3 (09:06→21:36)
[2019-11-10] MEDS: rOPINIRole HCl 2 MG TAB PO SCH ×3 (09:07→21:36)
[2019-11-10] MEDS ORDERED: Promethazine HCl 25 MG/ML VIAL SLOW IVP SCH (10:30)
--- NOTE | 2019-11-10 10:44 | PDOC.HOSPP ---
- Subjective Encounter Date: 11/10/19 Encounter Time: 10:43 Subjective: Feels nausea again. Wants to gag herself to make herself vomit. Feels upper abdominal pressure. Daughter reports this happens when she is in the hospital. She gets nausea and and abdominal distention. Nursing reports poor UOP. - Objective Vital Signs & Weight: Vital Signs (12 hours) Temp Pulse Resp BP Pulse Ox 11/10/19 09:04 98 120/72 11/10/19 09:03 129/69 11/10/19 08:05 98 22 H 97 11/10/19 08:00 98.3 F 11/10/19 04:00 98.2 F 11/10/19 00:00 98.1 F 11/09/19 23:18 108 H 20 94 L Weight Admit Weight 191 lb 12.835 oz Weight 191 lb 12.835 oz Most Recent Monitor Data Heart Rate from ECG 97 NIBP 123/70 NIBP BP-Mean 87 Respiration from ECG 20 SpO2 97 I&O: 11/09/19 11/10/19 11/11/19 06:59 06:59 06:59 Intake Total 1582 150 Output Total 3675 185 35 Balance -3675 1397 115 Result Diagrams: 11/10/19 05:39 11/10/19 05:39 Additional Labs: Accuchecks 11/10/19 11/09/19 11/09/19 06:03 22:06 17:27 POC Glucose 114 H 126 H 177 H Hospitalist ROS - Medication Medications: Active Medications Generic Name Dose Route Start Last Admin Trade Name Freq PRN Reason Stop Dose Admin Acetaminophen 650 mg 11/07/19 15:09 11/10/19 05:49 Tylenol PO 650 mg Q4H PRN Administration Headache/Fever/Mild Pain (1-3) Albuterol/Ipratropium 3 ml 11/07/19 19:00 11/10/19 08:05 Duoneb NEB 3 ml [id number] TARAN Administration Aspirin 81 mg 11/08/19 09:00 11/10/19 09:03 Ecotrin PO 81 mg DAILY TARAN Administration Baclofen 10 mg 11/07/19 21:00 11/10/19 09:04 Lioresal PO 10 mg TID TARAN Administration Citalopram Hydrobromide 20 mg 11/08/19 09:00 11/10/19 09:03 Celexa PO 20 mg DAILY TARAN Administration Clonidine 0.2 mg 11/09/19 09:00 11/09/19 14:15 Sqmjnmdk-Pik-5 TD 0.2 mg Q7DAYS TARAN Administration Docusate Sodium 100 mg 11/07/19 21:00 11/10/19 09:05 Colace PO 100 mg BID TARAN Administration Enoxaparin Sodium 40 mg 11/08/19 09:00 11/10/19 09:03 Lovenox SC 40 mg 0900 TARAN Administration Guaifenesin/Dextromethorphan 15 ml 11/07/19 15:09 11/08/19 11:36 Robitussin Dm PO 15 ml Q4H PRN Administration Cough Levofloxacin 500 mg/ Device 100 mls @ 100 mls/hr 11/07/19 17:00 11/09/19 16: 24 IVPB 100 mls 1700 TARAN Administration Sodium Chloride 1,000 mls @ 100 mls/hr 11/07/19 15:09 11/10/19 10:01 Normal Saline 0.9% IV 1,000 mls .Q10H TARAN Administration Cefepime HCl 1 gm/ Sodium 100 mls @ 200 mls/hr 11/07/19 21:00 11/10/19 08:59 Chloride IVPB 100 mls Q12HR TARAN Administration Isosorbide Mononitrate 60 mg 11/08/19 09:00 11/10/19 09:03 Imdur PO 60 mg DAILY TARAN Administration Labetalol HCl 200 mg 11/07/19 21:00 11/10/19 09:04 Normodyne PO 200 mg TID TARAN Administration Levothyroxine Sodium 50 mcg 11/08/19 06:00 11/10/19 05:49 Synthroid PO 50 mcg 0600 TARAN Administration Lisinopril 40 mg 11/08/19 09:00 11/10/19 09:03 Zestril PO 40 mg DAILY TARAN Administration Melatonin 3 mg 11/07/19 21:00 11/09/19 22:21 Melatonin PO 3 mg HS TARAN Administration Methylprednisolone Sodium Succinate 20 mg 11/07/19 22:00 11/10/19 05:47 Solu-Medrol IVP 20 mg Q8HR TARAN Administration Mometasone Furoate 1 puff 11/07/19 18:30 11/10/19 08:08 Asmanex Hfa 200 Mcg INH 1 puff BID-RT TARAN Administration Ondansetron HCl 4 mg 11/07/19 15:09 11/10/19 08:59 Zofran IVP 4 mg Q6H PRN Administration Nausea/Vomiting Oseltamivir Phosphate 75 mg 11/07/19 21:00 11/10/19 10:00 Tamiflu PO 11/12/19 09:01 75 mg BID TARAN Administration Pantoprazole Sodium 40 mg 11/08/19 09:00 11/10/19 09:04 Protonix PO 40 mg DAILY TARAN Administration Primidone 100 mg 11/07/19 21:00 11/10/19 09:06 Mysoline PO 100 mg TID TARAN Administration Ropinirole HCl 2 mg 11/07/19 21:00 11/10/19 09:07 Requip PO 2 mg TID TARAN Administration Trazodone HCl 100 mg 11/07/19 21:00 11/09/19 21:53 Desyrel PO 100 mg HS TARAN Administration - Exam General Appearance: awake alert, ill appearing Heart: RRR, no murmur, no gallops, no rubs, normal peripheral pulses Respiratory: CTAB, no wheezes, no rales, no ronchi, normal chest expansion, no tachypnea, normal percussion Respiratory - other findings: Diminished at bases. Gastrointestinal: soft, non-tender, distended (Mildly) Gastrointestinal - other findings: Diminished bowel sounds. Extremities: no cyanosis Extremities - other findings: BLE AKA Skin: normal turgor Neurological: no focal deficits Musculoskeletal: generalized weakness Hosp A/P (1) Influenza B Code(s): J10.1 - FLU DUE TO OTH IDENT INFLUENZA VIRUS W OTH RESP MANIFEST Status: Acute (2) PNA (pneumonia) Code(s): J18.9 - PNEUMONIA, UNSPECIFIED ORGANISM Status: Acute Qualifiers: Pneumonia type: due to unspecified organism (3) Acute respiratory failure with hypoxemia Code(s): J96.01 - ACUTE RESPIRATORY FAILURE WITH HYPOXIA Status: Acute (4) Sepsis with acute organ dysfunction Code(s): A41.9 - SEPSIS, UNSPECIFIED ORGANISM; R65.20 - SEVERE SEPSIS WITHOUT SEPTIC SHOCK Status: Acute Qualifiers: Sepsis type: sepsis due to unspecified organism (5) Diabetes type 2, controlled Code(s): E11.9 - TYPE 2 DIABETES MELLITUS WITHOUT COMPLICATIONS Status: Chronic Qualifiers: Diabetes mellitus terminal carman insulin use: without shelter use (6) Hypertension Code(s): I10 - ESSENTIAL (PRIMARY) HYPERTENSION Status: Chronic Qualifiers: Hypertension type: essential hypertension Qualified Code(s): I10 - Essential (primary) hypertension (7) Hypothyroidism Code(s): E03.9 - HYPOTHYROIDISM, UNSPECIFIED Status: Chronic Qualifiers: Hypothyroidism type: unspecified Qualified Code(s): E03.9 - Hypothyroidism , unspecified (8) Multiple sclerosis Code(s): G35 - MULTIPLE SCLEROSIS Status: Chronic (9) Obesity (BMI 30.0-34.9) Code(s): E66.9 - OBESITY, UNSPECIFIED Status: Chronic (10) Parkinson disease Code(s): G20 - PARKINSON'S DISEASE Status: Chronic (11) S/P AKA (above knee amputation) bilateral Code(s): Z89.611 - ACQUIRED ABSENCE OF RIGHT LEG ABOVE KNEE; Z89.612 - ACQUIRED ABSENCE OF LEFT LEG ABOVE KNEE Status: Chronic (12) Nausea & vomiting Code(s): R11.2 - NAUSEA WITH VOMITING, UNSPECIFIED Status: Acute (13) Gonsalez catheter present Code(s): Z96.0 - PRESENCE OF UROGENITAL IMPLANTS Status: Acute - Plan Continue Tamiflu, but if the KUB is negative and the Gonsalez is working properly, may have to consider stopping it due to the potential GI side-effects. Continue IV abx for pneumonia. KUB Bladder scan and flush Gonsalez. She has a history of CHF, but her echo from February actually looks pretty good. She has poor UOP. Had a drop in BP yesterday to the 80's, so need to watch for ATN. Need to ensure Gonsalez is functioning properly. May be able to give more fluids, but she should be getting adequate amounts. She has pleural effusions, so don't want to push too hard. Appreciate ID input. Considering the bacteriuria infectious. Zofran not working well. Low dose Phenergan seems to work well and she tolerates it. Holding non-essential meds for now: Atorvastatin, Iron, Florastor.
--- NOTE | 2019-11-10 11:20 | RAD ---
EXAM: Single view of the abdomen HISTORY: Abdominal distention and nausea COMPARISON: None FINDINGS: Single view of the abdomen shows a nonspecific, nonobstructive bowel gas pattern. No suspi cious calcifications are seen. The bones are unremarkable. Calcifications are seen in the aorta. IMPRESSION: Unremarkable exam
--- NOTE | 2019-11-10 12:23 | PRG ---
DATE OF SERVICE: 11/10/2019 SUBJECTIVE: Ms. Hester was given some Phenergan while ago, so she is very sleepy. She has come off the BiPAP. Her main issue has been nausea requiring the antiemetics. Unfortunately, that makes her sleepy. OBJECTIVE: VITAL SIGNS: Her temperature is 98.3, pulse 97, blood pressure 123/70, O2 saturation 97%. HEENT: Has some mild bitemporal wasting. NECK: No JVD. LUNGS: Diminished breath sounds in the bases. CARDIAC: S1 and S2. Regular. ABDOMEN: Mildly tender to deep palpation. EXTREMITIES: Bilateral [id number]-[id number]-dxjz amputations. IMAGING DATA: Her chest x-ray yesterday showed bilateral small effusions and pulmonary vascular congestion. LABORATORY DATA: White blood cell count 17.5, hematocrit 28.4, platelet count 411. Sodium 140, potassium 3.7, chloride 110, CO2 of 20, BUN 20, creatinine 0.5, glucose 100. ASSESSMENT: 1. Type B flu. 2. Acute hypoxic respiratory failure, likely related to aspiration. 3. Chronic medical problems. PLAN: 1. See how she does off the BiPAP. 2. Continue the Tamiflu, cefepime, and Levaquin. Job ID: [id number]
[2019-11-10] MEDS ORDERED: Calcium Carbonate 500 MG ChewTAB PO PRN (16:19)
[2019-11-10] MEDS ORDERED: Furosemide 20 MG/2 ML VIAL SLOW IVP SCH (16:30)
--- NOTE | 2019-11-10 17:00 | PDOC.EVN ---
Event Note - Event Note Event Note: Returned to meet with the patient's family. Met with son and daughter. They understand her overall poor prognosis as she has been ill and debilitated for a very long time. They had questions regarding bringing other family members in to see Ms. Hester. I reviewed the medical situation with them. Ultimately, that is their decision and I can not specifically prognosticate on her overall situation, but she does seem to be making some progress regarding this particular episode. She is still not making urine. Concerned for possible ATN, but can't know that yet. Did not respond to IVF bolus and maintenance fluids. Will give a very small dose of lasix to see if we can kick-start the kidneys a bit. KUB was unremarkable. Will stop the Tamiflu as it may be causing the nausea.
[2019-11-10] MEDS: traZODone HCl 50 MG TAB PO SCH (21:37)
[2019-11-10] MEDS: Melatonin 3 MG TAB PO SCH (21:52)
[2019-11-11] MEDS: Sodium Chloride 0.9% 1,000 ML IV SCH ×4 (04:09→18:59)
[2019-11-11] MEDS: Levothyroxine Sodium 50 MCG TAB PO SCH (05:19)
[2019-11-11] MEDS: methylPREDNISolone Sod Succ 40 MG VIAL IVP SCH ×3 (05:20→21:19)
[2019-11-11 05:49] LABS: #Basophils 0.1 thou/uL (0.0-0.2); #Eosinphils 0.1 thou/uL (0.0-0.7); #Lymphocytes 3.4 thou/uL (1.20-3.40); #Monocytes 0.8 thou/uL (0.11-0.59); #Neutrophils 9.6 thou/uL (1.40-6.50); %Basophils 0.7 % (0.0-1.0); %Eosinophils 0.8 % (0.0-10.0); %Lymphocytes 24.2 % (21.0-51.0); %Monocytes 5.4 % (0.0-10.0); %Neutrophils 68.9 % (42.0-75.0); Mean Corpuscular HGB CONC 31.3 g/dL (32.0-36.0); Mean Corpuscular Hemoglobin 27.6 pg (27.0-31.0); Mean Corpuscular Volume 88.3 fL (78.0-98.0); Mean Platelet Volume 7.8 fL (7.4-10.4); Platelet Count 402 thou/uL (130-400); RBC Distribution Width 13.7 % (11.5-14.5); Red Blood Cell (RBC) Count 3.26 mill/uL (4.20-5.40); White Blood Cell (WBC) Count 13.9 thou/uL (4.8-10.8)
[2019-11-11 06:09] LABS: Anion Gap 12 mmol/L (10-20); BUN (Urea Nitrogen) 18 mg/dL (9.8-20.1); Calc. Creatinine Clearance 117 mL/min (70-130); Calcium 7.5 mg/dL (7.8-10.44); Carbon Dioxide 19 mmol/L (23-31); Chloride 112 mmol/L (98-107); Estimated GFR-MDRD Greater than 90; Glucose 93 mg/dL (83-110); Potassium 3.8 mmol/L (3.5-5.1); Sodium 139 mmol/L (136-145)
[2019-11-11] MEDS: Ondansetron PF 4 MG/2 ML Vial IVP PRN (07:33)
[2019-11-11] MEDS: Mometasone 200 MCG HFA INHALER INH SCH ×2 (07:40→19:04)
[2019-11-11] MEDS: Enoxaparin Sodium 40 MG/0.4 ML SYRINGE SC SCH (08:10)
[2019-11-11] MEDS: Cefepime 1 GM in Sodium Chloride 0.9% 100 ML IVPB SCH ×2 (08:11→21:18)
[2019-11-11] MEDS: Lisinopril 20 MG TAB PO SCH (08:13)
[2019-11-11] MEDS: Docusate 100 MG CAP PO SCH ×2 (08:13→21:18)
[2019-11-11] MEDS: Aspirin 81 mg Enteric Coated Tablet PO SCH (08:14)
[2019-11-11] MEDS: Baclofen 10 MG TAB PO SCH ×3 (08:14→21:18)
[2019-11-11] MEDS: Citalopram 20 MG TAB PO SCH (08:14)
--- NOTE | 2019-11-11 08:53 | PRG ---
DATE OF SERVICE: 11/11/2019 SUBJECTIVE: The patient remains in the ICU. She did not require BiPAP last night. She is talkative this morning. She indicates that she is still nauseated. OBJECTIVE: VITAL SIGNS: Her temperature is 98.3, pulse 102, blood pressure 138/85, O2 saturation in the mid 90s on nasal cannula. HEENT: Unremarkable. NECK: No adenopathy or JVD. CHEST: Relatively clear. CARDIAC: S1 and S2, regular. ABDOMEN: Soft. EXTREMITIES: Bilateral uorpy-jjn-wopn amputations. LABORATORY DATA: Sodium 139, potassium 3.8, chloride 112, CO2 of 19, BUN 18, creatinine 0.5, and glucose 93. White blood cell count 13.9, hematocrit 28.8, and platelet count 402. ASSESSMENT: 1. Type B flu. 2. Acute hypoxic respiratory failure. 3. Chronic medical problems. PLAN: Doing well off the BiPAP. Can likely be sent back to the floor from my standpoint. Agree with current management. Job ID: [id number]
[2019-11-11] MEDS: Labetalol 100 MG TAB PO SCH ×3 (09:00→21:19)
[2019-11-11] MEDS: Primidone 50 MG TAB PO SCH ×3 (09:00→21:18)
[2019-11-11] MEDS: rOPINIRole HCl 2 MG TAB PO SCH ×3 (09:00→21:18)
[2019-11-11] MEDS: Acetaminophen/Codeine 30-300mg Tablet PO PRN ×2 (10:34→16:31)
[2019-11-11] MEDS ORDERED: Furosemide 20 MG/2 ML VIAL SLOW IVP SCH (12:30)
[2019-11-11] MEDS: traZODone HCl 50 MG TAB PO SCH (21:18)
[2019-11-11] MEDS: Melatonin 3 MG TAB PO SCH (21:18)
--- NOTE | 2019-11-11 22:19 | PDOC.HOSPP ---
- Subjective Encounter Date: 11/11/19 Subjective: Persistent nausea. UOP still poor. Needing her home dose of the T3. - Objective Vital Signs & Weight: Vital Signs (12 hours) Temp Pulse Resp Pulse Ox 11/11/19 21:19 106 H 11/11/19 20:00 97.3 F L 97 11/11/19 19:02 106 H 24 H 96 11/11/19 16:00 98 F 11/11/19 15:44 103 H 11/11/19 12:31 103 H 31 H 11/11/19 12:00 98.1 F Weight Admit Weight 191 lb 12.835 oz Weight 191 lb 12.835 oz Most Recent Monitor Data Heart Rate from ECG 111 NIBP 141/77 NIBP BP-Mean 98 Respiration from ECG 15 SpO2 96 I&O: 11/10/19 11/11/19 11/12/19 06:59 06:59 06:59 Intake Total 1582 1828 1520 Output Total 185 657 680 Balance 1397 1171 840 Result Diagrams: 11/12/19 07:50 11/12/19 07:50 Additional Labs: Accuchecks 11/11/19 11/11/19 11/11/19 21:20 16:40 12:11 POC Glucose 122 H 135 H 149 H Hospitalist ROS - Medication Medications: Active Medications Generic Name Dose Route Start Last Admin Trade Name Freq PRN Reason Stop Dose Admin Acetaminophen 650 mg 11/07/19 15:09 11/10/19 05:49 Tylenol PO 650 mg Q4H PRN Administration Headache/Fever/Mild Pain (1-3) Acetaminophen/Codeine Phosphate 1 tab 11/11/19 10:31 11/11/19 16:31 Tylenol #3 PO 1 tab Q6H PRN Administration Moderate to Severe Pain (6-10) Albuterol/Ipratropium 3 ml 11/07/19 19:00 11/11/19 19:02 Duoneb NEB 3 ml [id number] TARAN Administration Aspirin 81 mg 11/08/19 09:00 11/11/19 08:14 Ecotrin PO 81 mg DAILY TARAN Administration Baclofen 10 mg 11/07/19 21:00 11/11/19 21:18 Lioresal PO 10 mg TID TARAN Administration Bisacodyl 10 mg 11/07/19 15:09 11/11/19 07:33 Dulcolax ND 10 mg DAILYPRN PRN Administration Constipation Citalopram Hydrobromide 20 mg 11/08/19 09:00 11/11/19 08:14 Celexa PO 20 mg DAILY TARAN Administration Clonidine 0.2 mg 11/09/19 09:00 11/09/19 14:15 Upkzyxsx-Noi-5 TD 0.2 mg Q7DAYS TARAN Administration Docusate Sodium 100 mg 11/07/19 21:00 11/11/19 21:18 Colace PO 100 mg BID TARAN Administration Enoxaparin Sodium 40 mg 11/08/19 09:00 11/11/19 08:10 Lovenox SC 40 mg 0900 TARAN Administration Guaifenesin/Dextromethorphan 15 ml 11/07/19 15:09 11/08/19 11:36 Robitussin Dm PO 15 ml Q4H PRN Administration Cough Cefepime HCl 1 gm/ Sodium 100 mls @ 200 mls/hr 11/07/19 21:00 11/11/19 21:18 Chloride IVPB 100 mls Q12HR TARAN Administration Sodium Chloride 1,000 mls @ 75 mls/hr 11/11/19 12:31 11/11/19 16:00 Normal Saline 0.9% IV 1,000 mls .[id number] TARAN Administration Isosorbide Mononitrate 60 mg 11/08/19 09:00 11/11/19 08:14 Imdur PO 60 mg DAILY TARAN Administration Labetalol HCl 200 mg 11/07/19 21:00 11/11/19 21:19 Normodyne PO Not Given TID TARAN Levothyroxine Sodium 50 mcg 11/08/19 06:00 11/11/19 05:19 Synthroid PO 50 mcg 0600 TARAN Administration Lisinopril 40 mg 11/08/19 09:00 11/11/19 08:13 Zestril PO 40 mg DAILY TARAN Administration Melatonin 3 mg 11/07/19 21:00 11/11/19 21:18 Melatonin PO 3 mg HS TARAN Administration Methylprednisolone Sodium Succinate 20 mg 11/07/19 22:00 11/11/19 21:19 Solu-Medrol IVP 20 mg Q8HR TARAN Administration Mometasone Furoate 1 puff 11/07/19 18:30 11/11/19 19:04 Asmanex Hfa 200 Mcg INH 1 puff BID-RT TARAN Administration Ondansetron HCl 4 mg 11/07/19 15:09 11/11/19 07:33 Zofran IVP 4 mg Q6H PRN Administration Nausea/Vomiting Pantoprazole Sodium 40 mg 11/08/19 09:00 11/11/19 08:14 Protonix PO 40 mg DAILY TARAN Administration Primidone 100 mg 11/07/19 21:00 11/11/19 21:18 Mysoline PO 100 mg TID TARAN Administration Ropinirole HCl 2 mg 11/07/19 21:00 11/11/19 21:18 Requip PO 2 mg TID TARAN Administration Trazodone HCl 100 mg 11/07/19 21:00 11/11/19 21:18 Desyrel PO 100 mg HS TARAN Administration - Exam General Appearance: NAD, ill appearing Heart: RRR, no murmur, no gallops, no rubs, normal peripheral pulses Heart - other findings: Tachy Respiratory - other findings: Some upper airway wheezes. Suspect mechanical for torticolis. Gastrointestinal: soft, non-tender, non-distended, normal bowel sounds Extremities - other findings: BAKA Skin: normal turgor Musculoskeletal: normal tone Psychiatric: somnolent Hosp A/P (1) Influenza B Code(s): J10.1 - FLU DUE TO OTH IDENT INFLUENZA VIRUS W OTH RESP MANIFEST Status: Acute (2) PNA (pneumonia) Code(s): J18.9 - PNEUMONIA, UNSPECIFIED ORGANISM Status: Acute Qualifiers: Pneumonia type: due to unspecified organism (3) Acute respiratory failure with hypoxemia Code(s): J96.01 - ACUTE RESPIRATORY FAILURE WITH HYPOXIA Status: Acute (4) Sepsis with acute organ dysfunction Code(s): A41.9 - SEPSIS, UNSPECIFIED ORGANISM; R65.20 - SEVERE SEPSIS WITHOUT SEPTIC SHOCK Status: Acute Qualifiers: Sepsis type: sepsis due to unspecified organism (5) Diabetes type 2, controlled Code(s): E11.9 - TYPE 2 DIABETES MELLITUS WITHOUT COMPLICATIONS Status: Chronic Qualifiers: Diabetes mellitus terminal operator insulin use: without half-way use (6) Hypertension Code(s): I10 - ESSENTIAL (PRIMARY) HYPERTENSION Status: Chronic Qualifiers: Hypertension type: essential hypertension Qualified Code(s): I10 - Essential (primary) hypertension (7) Hypothyroidism Code(s): E03.9 - HYPOTHYROIDISM, UNSPECIFIED Status: Chronic Qualifiers: Hypothyroidism type: unspecified Qualified Code(s): E03.9 - Hypothyroidism , unspecified (8) Multiple sclerosis Code(s): G35 - MULTIPLE SCLEROSIS Status: Chronic (9) Obesity (BMI 30.0-34.9) Code(s): E66.9 - OBESITY, UNSPECIFIED Status: Chronic (10) Parkinson disease Code(s): G20 - PARKINSON'S DISEASE Status: Chronic (11) S/P AKA (above knee amputation) bilateral Code(s): Z89.611 - ACQUIRED ABSENCE OF RIGHT LEG ABOVE KNEE; Z89.612 - ACQUIRED ABSENCE OF LEFT LEG ABOVE KNEE Status: Chronic (12) Nausea & vomiting Code(s): R11.2 - NAUSEA WITH VOMITING, UNSPECIFIED Status: Acute (13) Gonsalez catheter present Code(s): Z96.0 - PRESENCE OF UROGENITAL IMPLANTS Status: Acute (14) Tachycardia Code(s): R00.0 - TACHYCARDIA, UNSPECIFIED Status: Acute (15) COPD with acute bronchitis Code(s): J44.0 - CHR OBSTRUCTIVE PULMON DISEASE WITH (ACUTE) LOWER RESP INFCT; J20.9 - ACUTE BRONCHITIS, UNSPECIFIED Status: Acute - Plan Stopping Tamiflu in light of the continued nausea. Continue IV abx for pneumonia. Small dose of Lasix to maintain UOP. No evidence of ATN. She has a history of CHF, but her echo from February actually looks pretty good. Decrease IVF to 75. Appreciate ID input. Considering the bacteriuria infectious. Nausea improved off the Tamiflu and back on T3. Holding non-essential meds for now: Atorvastatin, Iron, Florastor. Holding BP meds at times due to relative hypotension.
[2019-11-12] MEDS: Acetaminophen/Codeine 30-300mg Tablet PO PRN ×2 (04:21→12:37)
[2019-11-12] MEDS: Levothyroxine Sodium 50 MCG TAB PO SCH (06:29)
[2019-11-12] MEDS: methylPREDNISolone Sod Succ 40 MG VIAL IVP SCH (06:30)
[2019-11-12] MEDS: Sodium Chloride 0.9% 1,000 ML IV SCH ×2 (06:31→11:13)
[2019-11-12] MEDS: Mometasone 200 MCG HFA INHALER INH SCH ×2 (07:30→19:59)
[2019-11-12] MEDS: Citalopram 20 MG TAB PO SCH (08:28)
[2019-11-12] MEDS: Lisinopril 20 MG TAB PO SCH (08:28)
[2019-11-12] MEDS: Aspirin 81 mg Enteric Coated Tablet PO SCH (08:28)
[2019-11-12] MEDS: Baclofen 10 MG TAB PO SCH ×2 (08:29→16:06)
[2019-11-12] MEDS: Labetalol 100 MG TAB PO SCH ×2 (08:29→16:06)
[2019-11-12] MEDS: Enoxaparin Sodium 40 MG/0.4 ML SYRINGE SC SCH (08:30)
[2019-11-12] MEDS: Primidone 50 MG TAB PO SCH ×2 (08:30→16:06)
[2019-11-12] MEDS: Cefepime 1 GM in Sodium Chloride 0.9% 100 ML IVPB SCH ×2 (08:31→20:09)
[2019-11-12] MEDS: rOPINIRole HCl 2 MG TAB PO SCH ×2 (08:31→16:06)
[2019-11-12] MEDS: Docusate 100 MG CAP PO SCH (08:32)
[2019-11-12 08:55] LABS: #Basophils 0.1 thou/uL (0.0-0.2); #Eosinphils 0.2 thou/uL (0.0-0.7); #Lymphocytes 3.6 thou/uL (1.20-3.40); #Neutrophils 14.9 thou/uL (1.40-6.50); %Basophils 0.5 % (0.0-1.0); %Eosinophils 0.8 % (0.0-10.0); %Lymphocytes 18.2 % (21.0-51.0); %Monocytes 4.8 % (0.0-10.0); %Neutrophils 75.7 % (42.0-75.0); Hemoglobin 9.9 g/dL (12.0-16.0); Mean Corpuscular HGB CONC 30.6 g/dL (32.0-36.0); Mean Corpuscular Hemoglobin 27.9 pg (27.0-31.0); Mean Platelet Volume 8.4 fL (7.4-10.4); Platelet Count 506 thou/uL (130-400); RBC Distribution Width 14.2 % (11.5-14.5); Red Blood Cell (RBC) Count 3.54 mill/uL (4.20-5.40); White Blood Cell (WBC) Count 19.7 thou/uL (4.8-10.8)
[2019-11-12 09:13] LABS: Anion Gap 15 mmol/L (10-20); BUN (Urea Nitrogen) 13 mg/dL (9.8-20.1); Calc. Creatinine Clearance 117 mL/min (70-130); Calcium 7.7 mg/dL (7.8-10.44); Carbon Dioxide 17 mmol/L (23-31); Chloride 110 mmol/L (98-107); Estimated GFR-MDRD Greater than 90; Glucose 144 mg/dL (83-110); Potassium 3.5 mmol/L (3.5-5.1); Sodium 138 mmol/L (136-145)
--- NOTE | 2019-11-12 10:27 | PDOC.HOSPP ---
- Subjective Encounter Date: 11/12/19 Encounter Time: 10:25 Subjective: Doing a little better. Nausea has improved. Still has her chronic pain related to MS and contractures causing twisted positioning of the neck and trunk. - Objective Vital Signs & Weight: Vital Signs (12 hours) Temp Pulse Resp BP Pulse Ox 11/12/19 08:29 129 H 157/96 H 11/12/19 08:28 157/96 H 11/12/19 08:00 93 L 11/12/19 07:30 120 H 16 11/12/19 07:00 96.5 F L 11/12/19 04:00 97.7 F 11/12/19 00:00 98.0 F 11/11/19 23:17 113 H 18 97 Weight Admit Weight 191 lb 12.835 oz Weight 191 lb 12.835 oz Most Recent Monitor Data Heart Rate from ECG 94 NIBP 102/57 NIBP BP-Mean 72 Respiration from ECG 13 SpO2 97 I&O: 11/11/19 11/12/19 11/13/19 06:59 06:59 06:59 Intake Total 1828 2540 Output Total 657 997 30 Balance 1171 1543 -30 Result Diagrams: 11/12/19 07:50 11/12/19 07:50 Additional Labs: Accuchecks 11/12/19 11/11/19 11/11/19 06:31 21:20 16:40 POC Glucose 128 H 122 H 135 H 11/11/19 12:11 POC Glucose 149 H Hospitalist ROS - Medication Medications: Active Medications Generic Name Dose Route Start Last Admin Trade Name Freq PRN Reason Stop Dose Admin Acetaminophen 650 mg 11/07/19 15:09 11/10/19 05:49 Tylenol PO 650 mg Q4H PRN Administration Headache/Fever/Mild Pain (1-3) Acetaminophen/Codeine Phosphate 1 tab 11/11/19 10:31 11/12/19 04:21 Tylenol #3 PO 1 tab Q6H PRN Administration Moderate to Severe Pain (6-10) Aspirin 81 mg 11/08/19 09:00 11/12/19 08:28 Ecotrin PO 81 mg DAILY TARAN Administration Baclofen 10 mg 11/07/19 21:00 11/12/19 08:29 Lioresal PO 10 mg TID TARAN Administration Bisacodyl 10 mg 11/07/19 15:09 11/11/19 07:33 Dulcolax [place] 10 mg DAILYPRN PRN Administration Constipation Citalopram Hydrobromide 20 mg 11/08/19 09:00 11/12/19 08:28 Celexa PO 20 mg DAILY TARAN Administration Clonidine 0.2 mg 11/09/19 09:00 11/09/19 14:15 [id number]-8 TD 0.2 mg Q7DAYS TARAN Administration Docusate Sodium 100 mg 11/07/19 21:00 11/12/19 08:32 Colace PO Not Given BID TARAN Enoxaparin Sodium 40 mg 11/08/19 09:00 11/12/19 08:30 Lovenox SC 40 mg 0900 TARAN Administration Guaifenesin/Dextromethorphan 15 ml 11/07/19 15:09 11/08/19 11:36 Robitussin Dm PO 15 ml Q4H PRN Administration Cough Cefepime HCl 1 gm/ Sodium 100 mls @ 200 mls/hr 11/07/19 21:00 11/12/19 08:31 Chloride IVPB 100 mls Q12HR TARAN Administration Isosorbide Mononitrate 60 mg 11/08/19 09:00 11/12/19 08:30 Imdur PO 60 mg DAILY TARAN Administration Levothyroxine Sodium 50 mcg 11/08/19 06:00 11/12/19 06:29 Synthroid PO 50 mcg 0600 TARAN Administration Lisinopril 40 mg 11/08/19 09:00 11/12/19 08:28 Zestril PO 40 mg DAILY TARAN Administration Melatonin 3 mg 11/07/19 21:00 11/11/19 21:18 Melatonin PO 3 mg HS TARAN Administration Mometasone Furoate 1 puff 11/07/19 18:30 11/12/19 07:30 Asmanex Hfa 200 Mcg INH 1 puff BID-RT TARAN Administration Ondansetron HCl 4 mg 11/07/19 15:09 11/11/19 07:33 Zofran IVP 4 mg Q6H PRN Administration Nausea/Vomiting Pantoprazole Sodium 40 mg 11/08/19 09:00 11/12/19 08:28 Protonix PO 40 mg DAILY TARAN Administration Primidone 100 mg 11/07/19 21:00 11/12/19 08:30 Mysoline PO 100 mg TID TARAN Administration Ropinirole HCl 2 mg 11/07/19 21:00 11/12/19 08:31 Requip PO 2 mg TID TARAN Administration Trazodone HCl 100 mg 11/07/19 21:00 11/11/19 21:18 Desyrel PO 100 mg HS TARAN Administration - Exam General Appearance: NAD, awake alert Heart: RRR, no murmur, no gallops, no rubs, normal peripheral pulses Heart - other findings: Tachy Respiratory - other findings: Upper airway wheezes, but appears to be more mechanical than airway. Gastrointestinal: soft, non-tender, non-distended, normal bowel sounds, no palpable masses, no hepatomegaly, no splenomegaly, no bruit Extremities - other findings: BAKA Skin: normal turgor Psychiatric: somnolent Psychiatric - other findings: Does awaken. Hosp A/P (1) Influenza B Code(s): J10.1 - FLU DUE TO OTH IDENT INFLUENZA VIRUS W OTH RESP MANIFEST Status: Acute (2) PNA (pneumonia) Code(s): J18.9 - PNEUMONIA, UNSPECIFIED ORGANISM Status: Acute Qualifiers: Pneumonia type: due to unspecified organism (3) Acute respiratory failure with hypoxemia Code(s): J96.01 - ACUTE RESPIRATORY FAILURE WITH HYPOXIA Status: Acute (4) Sepsis with acute organ dysfunction Code(s): A41.9 - SEPSIS, UNSPECIFIED ORGANISM; R65.20 - SEVERE SEPSIS WITHOUT SEPTIC SHOCK Status: Acute Qualifiers: Sepsis type: sepsis due to unspecified organism (5) Diabetes type 2, controlled Code(s): E11.9 - TYPE 2 DIABETES MELLITUS WITHOUT COMPLICATIONS Status: Chronic Qualifiers: Diabetes mellitus intermediate insulin use: without rodent exterminator use (6) Hypertension Code(s): I10 - ESSENTIAL (PRIMARY) HYPERTENSION Status: Chronic Qualifiers: Hypertension type: essential hypertension Qualified Code(s): I10 - Essential (primary) hypertension (7) Hypothyroidism Code(s): E03.9 - HYPOTHYROIDISM, UNSPECIFIED Status: Chronic Qualifiers: Hypothyroidism type: unspecified Qualified Code(s): E03.9 - Hypothyroidism , unspecified (8) Multiple sclerosis Code(s): G35 - MULTIPLE SCLEROSIS Status: Chronic (9) Obesity (BMI 30.0-34.9) Code(s): E66.9 - OBESITY, UNSPECIFIED Status: Chronic (10) Parkinson disease Code(s): G20 - PARKINSON'S DISEASE Status: Chronic (11) S/P AKA (above knee amputation) bilateral Code(s): Z89.611 - ACQUIRED ABSENCE OF RIGHT LEG ABOVE KNEE; Z89.612 - ACQUIRED ABSENCE OF LEFT LEG ABOVE KNEE Status: Chronic (12) Nausea & vomiting Code(s): R11.2 - NAUSEA WITH VOMITING, UNSPECIFIED Status: Acute (13) Gonsalez catheter present Code(s): Z96.0 - PRESENCE OF UROGENITAL IMPLANTS Status: Acute (14) Tachycardia Code(s): R00.0 - TACHYCARDIA, UNSPECIFIED Status: Acute (15) COPD with acute bronchitis Code(s): J44.0 - CHR OBSTRUCTIVE PULMON DISEASE WITH (ACUTE) LOWER RESP INFCT; J20.9 - ACUTE BRONCHITIS, UNSPECIFIED Status: Acute - Plan Stopping Tamiflu in light of the continued nausea. DC isolation. Continue IV abx for pneumonia. Small dose of Lasix to maintain UOP. No evidence of ATN. She has a history of CHF, but her echo from February actually looks pretty good. Decrease IVF to 50. Appreciate ID input. Considering the bacteriuria infectious. Nausea improved off the Tamiflu and back on T3. Holding non-essential meds for now: Atorvastatin, Iron, Florastor. Holding BP meds at times due to relative hypotension. Will decrease the Labetolol to 100 mg tid. May need to add some BB for the tachycardia. Tachy more when in pain. Decreasing the nebs to prn. I believe she is having some wheezing related to the twisting of her neck related to the MS rather than significant airway compromise. Not sure the nebs are helpful at all. Wean the steroids. Move to medical floor.
[2019-11-12] MEDS ORDERED: Furosemide 20 MG/2 ML VIAL SLOW IVP SCH (10:30)
--- NOTE | 2019-11-12 10:36 | PRG ---
DATE OF SERVICE: 11/12/2019 SUBJECTIVE: Ms. Hester is doing better. She is more interactive with her family today. OBJECTIVE: VITAL SIGNS: Temperature 96.5, pulse 94, blood pressure 102/57, and O2 saturation 97%. HEENT: Clear. NECK: No adenopathy or JVD. LUNGS: Poor air movement, but no wheezing or rhonchi. CARDIAC: S1 and S2. Regular. ABDOMEN: Slightly distended. Bowel sounds hypoactive. EXTREMITIES: Bilateral [id number]-glb-sucf amputations. LABORATORY DATA: White blood cell count 19.7, hematocrit 32, and platelet count 506. Sodium 138, potassium 3.5, chloride 110, CO2 of 17, BUN 13, creatinine 0.6, and glucose 144. ASSESSMENT: 1. Type B flu. 2. Acute hypoxic respiratory failure, better. 3. Chronic medical problems. PLAN: Transfer to medical floor as planned. She is continuing antibiotics. Her pulmonary status is stable. We will sign off. Please recall if further assistance needed. Job ID: [id number]
[2019-11-13] MEDS: Docusate 100 MG CAP PO SCH ×2 (00:45→10:49)
[2019-11-13] MEDS: Baclofen 10 MG TAB PO SCH ×2 (00:45→10:48)
[2019-11-13] MEDS: Labetalol 100 MG TAB PO SCH ×2 (00:45→10:49)
[2019-11-13] MEDS: rOPINIRole HCl 2 MG TAB PO SCH ×2 (00:46→10:53)
[2019-11-13] MEDS: traZODone HCl 50 MG TAB PO SCH (00:46)
[2019-11-13] MEDS: Primidone 50 MG TAB PO SCH ×2 (00:46→10:52)
[2019-11-13] MEDS: Melatonin 3 MG TAB PO SCH (00:46)
[2019-11-13] MEDS: Levothyroxine Sodium 50 MCG TAB PO SCH (06:37)
[2019-11-13] MEDS: Sodium Chloride 0.9% 1,000 ML IV SCH (06:39)
[2019-11-13 06:53] LABS: Anion Gap 19 mmol/L (10-20); BUN (Urea Nitrogen) 13 mg/dL (9.8-20.1); Calc. Creatinine Clearance 108 mL/min (70-130); Carbon Dioxide 12 mmol/L (23-31); Chloride 113 mmol/L (98-107); Estimated GFR-MDRD Greater than 90; Glucose 149 mg/dL (83-110); Potassium 3.7 mmol/L (3.5-5.1); Sodium 140 mmol/L (136-145)
[2019-11-13 07:13] LABS: Band 1 % (5-11); Eosinophils 1 % (0-10); Hemoglobin 10.7 g/dL (12.0-16.0); Lymphocytes 21 % (21-51); MDiff Complete? YES; Mean Corpuscular HGB CONC 28.4 g/dL (32.0-36.0); Mean Corpuscular Hemoglobin 27.2 pg (27.0-31.0); Mean Corpuscular Volume 95.9 fL (78.0-98.0); Mean Platelet Volume 7.7 fL (7.4-10.4); Metamyelocyte 2 % (0-0); Monocytes 1 % (0-10); Myelocyte 1 % (0-0); Neutrophil 73 % (42-75); Platelet Count 675 thou/uL (130-400); Platelet Morphology Comment Appears Increased; RBC Distribution Width 14.5 % (11.5-14.5); Red Blood Cell (RBC) Count 3.94 mill/uL (4.20-5.40); White Blood Cell (WBC) Count 23.7 thou/uL (4.8-10.8)
[2019-11-13 07:39] VITALS: BP 127/63; TEMP 97.3
[2019-11-13] MEDS: Mometasone 200 MCG HFA INHALER INH SCH (08:25)
[2019-11-13] MEDS: Cefepime 1 GM in Sodium Chloride 0.9% 100 ML IVPB SCH (09:33)
[2019-11-13] MEDS: Enoxaparin Sodium 40 MG/0.4 ML SYRINGE SC SCH (09:33)
[2019-11-13 10:03] LABS: Actual Bicarbonate (HCO3a) 13.7 mEq/L (22-28); Base Excess (BEa) -14.3 mEq/L (-2.0 to +3.0); CO2 Tension 40.3 mmHg (35.0-45.0); Carboxyhemoglobin (COHb) 0.5 gm% (0.0-3.0); Hemoglobin (Hb) 10.7 g/dL (12.0-16.0); O2 Tension (PaO2) 90.7 mmHg (> 70.0); pH, Arterial 7.15 (7.35-7.45)
[2019-11-13 10:04] LABS: ALV-art Gradient 8.655 (0-20); Calcium, Ionized 1.26 mmol/L (1.12-1.30); Potassium - ABG Lab 3.49 mmol/L (3.70-5.30); Puncture Site RRAD
--- NOTE | 2019-11-13 10:15 | RAD ---
EXAM: Single view of the chest HISTORY: Metabolic acidosis COMPARISON: 11/01/2019 FINDINGS: Single view of the chest shows an enlarged but stable cardiomediastinal silhouette. Athero sclerotic calcifications are seen in the aorta. There are small bilateral pleural effusions with adjacent atelectasis. The bones are unremarkable. IMPRESSION: Bilateral pleural effusions with adjacent atelectasis.
[2019-11-13] MEDS: Citalopram 20 MG TAB PO SCH (10:48)
[2019-11-13] MEDS: Aspirin 81 mg Enteric Coated Tablet PO SCH (10:48)
[2019-11-13] MEDS: Lisinopril 20 MG TAB PO SCH (10:49)
[2019-11-13] MEDS ORDERED: Lorazepam 2 MG/ML VIAL SLOW IVP PRN (10:51)
[2019-11-13] MEDS ORDERED: Fentanyl 100 MCG/2 ML VIAL SLOW IVP PRN (10:52)
--- NOTE | 2019-11-13 11:06 | PDOC.HOSPP ---
- Subjective Subjective: Somewhat obtunded and non-verbal. - Objective Vital Signs & Weight: Vital Signs (12 hours) Temp Pulse Resp BP Pulse Ox 11/13/19 08:00 99 11/13/19 07:36 97.3 F L 118 H 17 127/63 99 11/13/19 00:45 111 H Weight Admit Weight 191 lb 12.835 oz Weight 191 lb 12.835 oz Most Recent Monitor Data Heart Rate from ECG 93 NIBP 108/51 NIBP BP-Mean 70 Respiration from ECG 8 SpO2 98 I&O: 11/12/19 11/13/19 11/14/19 06:59 06:59 06:59 Intake Total 2540 Output Total 997 305 Balance 1543 -305 Result Diagrams: 11/13/19 06:09 11/13/19 06:09 Additional Labs: Accuchecks 11/13/19 11/12/19 11/12/19 04:55 17:06 11:19 POC Glucose 126 H 106 136 H Hospitalist ROS - Medication Medications: Active Medications Generic Name Dose Route Start Last Admin Trade Name Freq PRN Reason Stop Dose Admin Acetaminophen 650 mg 11/07/19 15:09 11/10/19 05:49 Tylenol PO 650 mg Q4H PRN Administration Headache/Fever/Mild Pain (1-3) Acetaminophen/Codeine Phosphate 1 tab 11/11/19 10:31 11/12/19 12:37 Tylenol #3 PO 1 tab Q6H PRN Administration Moderate to Severe Pain (6-10) Aspirin 81 mg 11/08/19 09:00 11/13/19 10:48 Ecotrin PO Not Given DAILY TARAN Baclofen 10 mg 11/07/19 21:00 11/13/19 10:48 Lioresal PO Not Given TID TARAN Bisacodyl 10 mg 11/07/19 15:09 11/11/19 07:33 Dulcolax [place] 10 mg DAILYPRN PRN Administration Constipation Citalopram Hydrobromide 20 mg 11/08/19 09:00 11/13/19 10:48 Celexa PO Not Given DAILY TARAN Clonidine 0.2 mg 11/09/19 09:00 11/09/19 14:15 Klllhpnm-Ggf-8 TD 0.2 mg Q7DAYS TARAN Administration Docusate Sodium 100 mg 11/07/19 21:00 11/13/19 10:49 Colace PO Not Given BID [facility] Enoxaparin Sodium 40 mg 11/08/19 09:00 11/13/19 09:33 Lovenox SC 40 mg 0900 TARAN Administration Guaifenesin/Dextromethorphan 15 ml 11/07/19 15:09 11/08/19 11:36 Robitussin Dm PO 15 ml Q4H PRN Administration Cough Cefepime HCl 1 gm/ Sodium 100 mls @ 200 mls/hr 11/07/19 21:00 11/13/19 09:33 Chloride IVPB 100 mls Q12HR TARAN Administration Sodium Chloride 1,000 mls @ 50 mls/hr 11/12/19 10:04 11/13/19 06:39 Normal Saline 0.9% IV Not Given .Q20H [facility] Isosorbide Mononitrate 60 mg 11/08/19 09:00 11/13/19 10:49 Imdur PO Not Given DAILY [facility] Labetalol HCl 100 mg 11/12/19 10:16 11/13/19 10:49 Normodyne PO Not Given TID [facility] Levothyroxine Sodium 50 mcg 11/08/19 06:00 11/13/19 06:37 Synthroid PO Not Given 0600 [facility] Lisinopril 40 mg 11/08/19 09:00 11/13/19 10:49 Zestril PO Not Given DAILY [facility] Melatonin 3 mg 11/07/19 21:00 11/13/19 00:46 Melatonin PO Not Given HS [facility] Mometasone Furoate 1 puff 11/07/19 18:30 11/13/19 08:25 Asmanex Hfa 200 Mcg INH Not Given BID-RT [facility] Ondansetron HCl 4 mg 11/07/19 15:09 11/11/19 07:33 Zofran IVP 4 mg Q6H PRN Administration Nausea/Vomiting Pantoprazole Sodium 40 mg 11/08/19 09:00 11/13/19 10:52 Protonix PO Not Given DAILY [facility] Primidone 100 mg 11/07/19 21:00 11/13/19 10:52 Mysoline PO Not Given TID [facility] Ropinirole HCl 2 mg 11/07/19 21:00 11/13/19 10:53 Requip PO Not Given TID [facility] Trazodone HCl 100 mg 11/07/19 21:00 11/13/19 00:46 Desyrel PO Not Given HS TARAN - Exam General - other findings: Obtunded. Mumbles at times. Heart: RRR, no murmur, no gallops, no rubs, normal peripheral pulses Respiratory: no rales, no ronchi, no tachypnea Gastrointestinal: soft, non-distended, normal bowel sounds Psychiatric: somnolent, lethargic Hosp A/P (1) Influenza B Code(s): J10.1 - FLU DUE TO OTH IDENT INFLUENZA VIRUS W OTH RESP MANIFEST Status: Acute (2) PNA (pneumonia) Code(s): J18.9 - PNEUMONIA, UNSPECIFIED ORGANISM Status: Acute Qualifiers: Pneumonia type: due to unspecified organism (3) Acute respiratory failure with hypoxemia Code(s): J96.01 - ACUTE RESPIRATORY FAILURE WITH HYPOXIA Status: Acute (4) Sepsis with acute organ dysfunction Code(s): A41.9 - SEPSIS, UNSPECIFIED ORGANISM; R65.20 - SEVERE SEPSIS WITHOUT SEPTIC SHOCK Status: Acute Qualifiers: Sepsis type: sepsis due to unspecified organism (5) Diabetes type 2, controlled Code(s): E11.9 - TYPE 2 DIABETES MELLITUS WITHOUT COMPLICATIONS Status: Chronic Qualifiers: Diabetes mellitus senior living insulin use: without senior living use (6) Hypertension Code(s): I10 - ESSENTIAL (PRIMARY) HYPERTENSION Status: Chronic Qualifiers: Hypertension type: essential hypertension Qualified Code(s): I10 - Essential (primary) hypertension (7) Hypothyroidism Code(s): E03.9 - HYPOTHYROIDISM, UNSPECIFIED Status: Chronic Qualifiers: Hypothyroidism type: unspecified Qualified Code(s): E03.9 - Hypothyroidism , unspecified (8) Multiple sclerosis Code(s): G35 - MULTIPLE SCLEROSIS Status: Chronic (9) Obesity (BMI 30.0-34.9) Code(s): E66.9 - OBESITY, UNSPECIFIED Status: Chronic (10) Parkinson disease Code(s): G20 - PARKINSON'S DISEASE Status: Chronic (11) S/P AKA (above knee amputation) bilateral Code(s): Z89.611 - ACQUIRED ABSENCE OF RIGHT LEG ABOVE KNEE; Z89.612 - ACQUIRED ABSENCE OF LEFT LEG ABOVE KNEE Status: Chronic (12) Nausea & vomiting Code(s): R11.2 - NAUSEA WITH VOMITING, UNSPECIFIED Status: Acute (13) Gonsalez catheter present Code(s): Z96.0 - PRESENCE OF UROGENITAL IMPLANTS Status: Acute (14) Tachycardia Code(s): R00.0 - TACHYCARDIA, UNSPECIFIED Status: Acute (15) COPD with acute bronchitis Code(s): J44.0 - CHR OBSTRUCTIVE PULMON DISEASE WITH (ACUTE) LOWER RESP INFCT; J20.9 - ACUTE BRONCHITIS, UNSPECIFIED Status: Acute (16) Metabolic acidosis Code(s): E87.2 - ACIDOSIS Status: Acute - Plan She has taken a bad turn with severe metabolic acidosis. I talked with Dr. Chin. In light of the lack of resp compensation, she would need Bipap. I talked with her son and daughter. Explained the situation and the option for aggressive v. palliative treatment. They indicated the patient had been extremely clear to them many times that she did not want aggressive treatment. Her daughter shared that the patient had actually become angry with her several years ago when she had the heart attack and she awoke on some type of support. They agree that she would not want to pursue aggressive treatment now. They would like to pursue hospice care. CM consult placed for hospice. Fentanyl and Lorazepam ordered for palliation. Discussed with her nurse.
--- NOTE | 2019-11-15 10:56 | EKG ---
Test Reason : STAT Blood Pressure : / mmHG Vent. Rate : 128 BPM Atrial Rate : 128 BPM P-R Int : 000 ms QRS Dur : 098 ms QT Int : 346 ms P-R-T Axes : 056 114 254 degrees QTc Int : 505 ms Sinus tachycardia Right axis deviation Septal infarct , age undetermined cannot be excluded Abnormal ECG Confirmed by KAILASH ALVARES ([id number]) on 11/15/2019 10:55:55 AM Referred By: Confirmed By:KAILASH ALVARES
--- NOTE | 2019-11-15 11:04 | EKG ---
Test Reason : Blood Pressure : / mmHG Vent. Rate : 130 BPM Atrial Rate : 064 BPM P-R Int : 000 ms QRS Dur : 094 ms QT Int : 354 ms P-R-T Axes : 000 103 247 degrees QTc Int : 520 ms Sinus tachycardia Rightward axis Low voltage QRS Septal infarct , age undetermined cannot be excluded Abnormal ECG Confirmed by KAILASH ALVARES ([id number]) on 11/15/2019 11:03:38 AM Referred By: LENNY Confirmed By:KAILASH ALVARES
== END 2019-11-13 16:25 | disposition hospice, inpatient (51) | DRG 871 ==
LOC: ERS 07:50 → ERHOLD 10:41 → T4-A 15:48 → CCU 11-09 09:48 → T4-A 11-12 15:22
PROVIDERS: ADMIT Internal Medicine; ATTEND Internal Medicine
DX: A41.9 Sepsis, unspecified organism (principal); J18.9 Pneumonia, unspecified organism; J96.01 Acute respiratory failure with hypoxia; G35 Multiple sclerosis; R65.20 Severe sepsis without septic shock; G20 Parkinson's disease; I10 Essential (primary) hypertension; E03.9 Hypothyroidism, unspecified; Z90.49 Acquired absence of other specified parts of digestive tract; I25.10 Atherosclerotic heart disease of native coronary artery without angina pectoris; Z79.84 Long term (current) use of oral hypoglycemic drugs; Z79.899 Other long term (current) drug therapy; Z79.82 Long term (current) use of aspirin; Z88.2 Allergy status to sulfonamides; Z88.5 Allergy status to narcotic agent; Z66 Do not resuscitate; E66.9 Obesity, unspecified; Z68.31 Body mass index [BMI] 31.0-31.9, adult; F41.9 Anxiety disorder, unspecified; J10.1 Influenza due to other identified influenza virus with other respiratory manifestations; Z96.0 Presence of urogenital implants
CPT/HCPCS: 36415; 36416; 71045; 74018; 80048; 80053; 81003; 81015; 82805; 83605; 85025; 85379; 87040; 87077; 87086; 87186; 87804; 93005; 93010; 94640; 94660; 96361; 96365; 96367; J0456; J0692; J1650; J1940; J1956; J2060; J2405; J2550; J2920; J3010; J3490; J7611; J7620

== ENCOUNTER 2019-11-13 16:32 | Inpatient (IN) | payer OTHER ==
[2019-11-13] MEDS ORDERED: Lorazepam 2 MG/ML VIAL SLOW IVP PRN (18:12)
[2019-11-13] MEDS ORDERED: Ondansetron PF 4 MG/2 ML Vial IVP PRN (18:12)
[2019-11-13] MEDS ORDERED: Scopolamine 1.5 mg/72 hour Patch TOP PRN ×2 (18:12)
[2019-11-13] MEDS: Lorazepam 2 MG/ML VIAL SLOW IVP PRN ×2 (18:46→23:08)
[2019-11-14] MEDS: Lorazepam 2 MG/ML VIAL SLOW IVP PRN ×3 (03:09→18:30)
[2019-11-14] MEDS: Fentanyl 100 MCG/2 ML VIAL SLOW IVP PRN ×2 (14:49→21:46)
[2019-11-14 20:13] VITALS: BP 94/55; TEMP 98.2
[2019-11-15] MEDS: Lorazepam 2 MG/ML VIAL SLOW IVP PRN (03:11)
== END 2019-11-15 06:40 | disposition expired | DRG 951 ==
LOC: T4-A 16:32
PROVIDERS: ADMIT Family Medicine; ATTEND Family Medicine
DX: Z51.5 Encounter for palliative care (principal); A41.9 Sepsis, unspecified organism; J18.9 Pneumonia, unspecified organism; J96.01 Acute respiratory failure with hypoxia; N39.0 Urinary tract infection, site not specified; G35 Multiple sclerosis; I25.10 Atherosclerotic heart disease of native coronary artery without angina pectoris; I10 Essential (primary) hypertension; E11.9 Type 2 diabetes mellitus without complications; G20 Parkinson's disease; E03.9 Hypothyroidism, unspecified; J11.89 Influenza due to unidentified influenza virus with other manifestations; Z89.612 Acquired absence of left leg above knee; Z89.611 Acquired absence of right leg above knee; Z79.84 Long term (current) use of oral hypoglycemic drugs; Z90.49 Acquired absence of other specified parts of digestive tract; Z74.01 Bed confinement status; Z79.82 Long term (current) use of aspirin
CPT/HCPCS: J2060; J3010